=== PATIENT | female | born 1965 | race Caucasian/White ===

== ENCOUNTER 2016-07-06 15:50 | Inpatient (IN) | payer BC, OTHER ==
[2016-07-06 17:30] VITALS: BMI 22.7
--- NOTE | 2016-07-06 17:55 | HP ---
COWS - Scale Resting Pulse: 0= [place] 80 or Below Sweatin= Chills/Flushing Restless Observation: 1= Difficult to Sit Still Pupil Size: 0= Normal to Room Light Bone or Joint Aches: 1= Mild Discomfort Runny Nose/ Eye Tearin= Runny Nose/Eyes GI Upset > 30mins: 3= Vomiting/Diarrhea Tremor Observation: 1= Tremor [place], Not Seen Yawning Observation: 0= None Anxiety or Irritability: 2=Irritable/Anxious Goose Flesh Skin: 3=Piloerection COWS Score: 14 CIWA Score - CIWA Score Nausea/Vomitin Muscle Tremors: 4-Moderate,w/Arms Extend Anxiety: 4-Mod. Anxious/Guarded Agitation: 4-Moderately Restless Paroxysmal Sweats: 1-Minimal Palms Moist Orientation: 0-Oriented Tacttile Disturbances: 0-None Auditory Disturbances: 0-None Visual Disturbances: 0-None Headache: 0-None Present CIWA-Ar Total Score: 15 Admission ROS BHS - HPI Chief Complaint: withdrawal sx Allergies/Adverse Reactions: Allergies Allergy/AdvReac Type Severity Reaction Status Date / Time No Known Allergies Allergy Verified 07/06/16 17:46 History of Present Illness: 51 years old female with long history of alcohol, opiate, cocaine, nicotine dependence, 2012 neck fx, hepatitis c, treated, +PPD, and depression is admitted to detox Exam Limitations: No Limitations - Ebola screening Have you traveled outside of the country in the last 21 days: No Have you had contact with anyone from an Ebola affected area: No Have you been sick,other than usual withdrawal symptoms: No Do you have a fever: No - Review of Systems Constitutional: Chills, Changes in sleep, Weight Stable EENT: reports: No Symptoms Reported Respiratory: reports: No Symptoms reported Cardiac: reports: No Symptoms Reported GI: reports: Diarrhea, Nausea, Poor Fluid Intake, Vomiting, Abdominal cramping : reports: No Symptoms Reported Musculoskeletal: reports: Back Pain, Joint Pain, Muscle Pain, Muscle Weakness ( left side of body), Neck Pain Integumentary: reports: Change in Color (both upper legs and arms) Neuro: reports: Tremors Endocrine: reports: No Symptoms Reported Hematology: reports: No Symptoms Reported Psychiatric: reports: Judgement Intact, Orientated x3, Depressed Other Systems: Reviewed and Negative Patient History - Patient Medical History Hx Anemia: No Hx Asthma: No Hx Chronic Obstructive Pulmonary Disease (COPD): No Hx Cancer: No Hx Cardiac Disorders: No Hx Congestive Heart Failure: No Hx Hypertension: No Hx Hypercholesterolemia: No Hx Pacemaker: No HX Cerebrovascular Accident: No Hx Seizures: No Hx Dementia: No Hx Diabetes: No Hx Gastrointestinal Disorders: No Hx Liver Disease: No Hx Genitourinary Disorders: No Hx Sexually Transmitted Disorders: No Hx Renal Disease (ESRD): No Hx Thyroid Disease: No Hx Human Immunodeficiency Virus (HIV): No Hx Hepatitis C: Yes (treated) Hx Depression: Yes Hx Suicide Attempt: Yes (1993) Hx Bipolar Disorder: No Hx Schizophrenia: No - Patient Surgical History Past Surgical History: Yes Hx Neurologic Surgery: Yes (neck) Hx Cataract Extraction: No Hx Cardiac Surgery: No Hx Lung Surgery: No Hx Breast Surgery: No Hx Breast Biopsy: No Hx Abdominal Surgery: No Hx Appendectomy: No Hx Cholecystectomy: No Hx Genitourinary Surgery: No Hx Section: Yes Hx Orthopedic Surgery: Yes (back) Hx Hysterectomy: No Anesthesia Reaction: No - PPD History Previous Implant?: Yes Documented Results: Positive w/o proof Implanted On Prior R Admission?: No PPD to be Administered?: Yes - Reproductive History Patient is a Female of Child Bearing Age (11 -55 yrs old): Yes Last Menstrual Period: 07/07/07 Patient : No - Smoking Cessation Smoking history: Current every day smoker Have you smoked in the past 12 months: Yes Aproximately how many cigarettes per day: 15 Cigars Per Day: 0 Hx Chewing Tobacco Use: No Initiated information on smoking cessation: Yes 'Breaking Loose' booklet given: 07/06/16 - Substance & Tx. History Hx Alcohol Use: Yes Hx Substance Use: Yes Substance Use Type: Alcohol, Cocaine, Opiates, Tranquilizers Hx Substance Use Treatment: Yes - Substances Abused Heroin Route: Injection Frequency: Daily Amount used: 10 bags Age of first use: 15 Date of Last Use: 07/06/16 Alcohol Route: Oral Frequency: Daily Amount used: 3-6 beers Age of first use: 12 Date of Last Use: 07/06/16 Cocaine Route: Injection Frequency: Daily Amount used: 1 gram Age of first use: 12 Date of Last Use: 07/04/16 Alprazolam (Xanax) Route: Oral Frequency: 1-2 times per week Amount used: 1mg Age of first use: 50 Date of Last Use: 07/06/16 Family Disease History - Family Disease History Family Disease History: Heart Disease: Mother (), Other: Father ( ), Brother (head trauma) Admission Physical Exam [facility] - Vital Signs Vital Signs: Vital Signs - 24 hr 07/06/16 17:25 Temperature 95.8 F L Pulse Rate 69 Respiratory 18 Rate Blood Pressure 121/74 - Physical General Appearance: Yes: Nourished, Appropriately Dressed, Mild Distress, Tremorous, Irritable, Sweating, Anxious HEENTM: Yes: Hearing grossly Normal, Normal ENT Inspection, Normocephalic, Normal Voice Respiratory: Yes: Chest Non-Tender, Lungs Clear, Normal Breath Sounds, No Respiratory Distress, Accessory Muscle Use Neck: Yes: Supple, Trachea in good position Breast: Yes: Breasts Symetrical Cardiology: Yes: Regular Rhythm, Regular Rate, S1, S2 Abdominal: Yes: Non Tender, Soft Genitourinary: Yes: Within Normal Limits Back: Yes: Normal Inspection Musculoskeletal: Yes: Gait Steady (cane), Back pain, Muscle weakness (left side weakness) Extremities: Yes: Non-Tender, Tremors Neurological: Yes: Alert, Normal Response, Depressed Affect Integumentary: Yes: Warm, Track Rinaldi Lymphatic: Yes: Within Normal Limits - Diagnostic (1) Alcohol dependence with uncomplicated withdrawal Current Visit: Yes Status: Acute (2) Opioid dependence with withdrawal Current Visit: Yes Status: Acute (3) Cocaine dependence, uncomplicated Current Visit: Yes Status: Chronic (4) Nicotine dependence Current Visit: Yes Status: Acute Qualifiers: Nicotine product type: cigarettes Substance use status: in withdrawal Qualified Code(s): F17.213 - Nicotine dependence, cigarettes, with withdrawal (5) Hepatitis C antibody test positive Current Visit: Yes Status: Resolved (6) Status post neck surgery, follow-up exam Current Visit: Yes Status: Resolved (7) Positive PPD, treated Current Visit: Yes Status: Resolved (8) Depression (emotion) Current Visit: Yes Status: Suspected Qualifiers: Depression Type: dysthymia Qualified Code(s): F34.1 - Dysthymic disorder (9) Use of cane as ambulatory aid Current Visit: Yes Status: Chronic Cleared for Admission [facility] - Detox or Rehab [facility] Level of Care: Medically Managed Detox Regimen/Protocol: Methadone/Valium BHS Breath Alcohol Content Breath Alcohol Content: 0 Vital Signs - Vital Signs Vital Signs Refused: No Temperature: 95.8 F Temperature Source: Oral Pulse Rate: 69 Respiratory Rate: 18 Blood Pressure: 121/74 BP Location: Left Arm Blood Pressure Position: Sitting - Height Height: 5 ft 7 in - Weight Weight: 145 lb Weight Measurement Method: Standing Scale Body Mass Index (BMI): 22.7 - Bowel Function Bowel Movement: Yes Urine Pregancy Test - Result Urine Test Results: Negative- NO Line Present Urine Drug Screen - Control Is Test Valid: Yes - Results Drug Screen Negative: No Urine Drug Screen Results: EKATERINA-Cocaine, OPI-Opiates, BZO-Benzodiazepines, OXY- Oxycodone
[2016-07-06] MEDS ORDERED: ACETAMINOPHEN 325 MG TABLET (FP) PO PRN (18:24)
[2016-07-06] MEDS ORDERED: MAGNESIUM CITRATE 300 ML BOTTLE PO PRN (18:24)
[2016-07-06] MEDS ORDERED: MAGNESIUM HYDROX 2400MG/30ML ORAL SUSPENSION 30 ML CUP PO PRN (18:24)
[2016-07-06] MEDS ORDERED: NICOTINE POLACRILEX 4 MG GUM BC PRN (18:24)
[2016-07-06] MEDS ORDERED: P-EPHED 60MG/TRIPROLIDI 2.5MG TABLET PO PRN (18:24)
[2016-07-06] MEDS ORDERED: diphenhydrAMINE HCL 50 MG CAPSULE PO PRN (18:24)
[2016-07-06] MEDS ORDERED: LOPERAMIDE HCL 2 MG CAPSULE PO PRN (18:24)
[2016-07-06] MEDS ORDERED: diazePAM 5 MG TABLET PO ONE (19:00)
[2016-07-06] MEDS ORDERED: METHADONE HCL 10 MG TABLET (FOR DETOX USE ONLY) PO ONE ×2 (19:00→23:00)
[2016-07-06] MEDS: diazePAM 5 MG TABLET PO SCH (22:34)
[2016-07-06] MEDS: GABAPENTIN 300 MG CAPSULE (FP) PO SCH (22:34)
[2016-07-06] MEDS: THIAMINE HCL 100 MG TABLET (FP) PO SCH (22:34)
[2016-07-06 23:32] LABS: URINE APPEARANCE CLOUDY; URINE BILIRUBIN NEGATIVE (NEGATIVE); URINE BLOOD NEGATIVE (NEGATIVE); URINE COLOR YELLOW; URINE GLUCOSE (UA) NEGATIVE (NEGATIVE); URINE KETONE NEGATIVE (NEGATIVE); URINE NITRITE NEGATIVE (NEGATIVE); URINE PROTEIN NEGATIVE (NEGATIVE); URINE UROBILINOGEN NEGATIVE E.U./dl (0.2-1.0)
[2016-07-06 23:37] LABS: URINE LEUK ESTERASE 2+ (NEGATIVE)
[2016-07-06 23:40] LABS: URINE BACTERIA RARE /hpf (NONE SEEN); URINE MUCUS RARE; URINE RBC <1 /hpf (0-3); URINE WBC 13 /hpf (3-5)
[2016-07-07] MEDS: GABAPENTIN 300 MG CAPSULE (FP) PO SCH ×2 (05:21→21:47)
[2016-07-07] MEDS: diazePAM 5 MG TABLET PO SCH ×3 (05:21→21:47)
--- NOTE | 2016-07-07 08:41 | CONSULT ---
[facility] Psychiatric Consult - Data Date of interview: 07/07/16 Admission source: [facility] Identifying data: This is 51 years old female with history of no psychgiatric hospitalizations, intoxicated with: Alcohol, Opioids, Cociane, Xanax and Nicotine Substance Abuse History: Smoking history: Current every day smoker. Have you smoked in the past 12 months: Yes. Aproximately how many cigarettes per day: 15. Cigars Per Day: 0. Hx Chewing Tobacco Use: No. Initiated information on smoking cessation: Yes. 'Breaking Loose' booklet given: 07/06/16. - Substance & Tx. History. Hx Alcohol Use: Yes. Hx Substance Use: Yes. Substance Use Type : Alcohol, Cocaine, Opiates, Tranquilizers. Hx Substance Use Treatment: Yes. - Substances Abused. Heroin. Route: Injection. Frequency: Daily. Amount used: 10 bags. Age of first use: 15. Date of Last Use: 07/06/16. Alcohol. Route: Oral. Frequency: Daily. Amount used: 3-6 beers. Age of first use: 12. Date of Last Use: 07/06/16. Cocaine. Route: Injection. Frequency: Daily. Amount used: 1 gram. Age of first use: 12. Date of Last Use: . Alprazolam (Xanax). Route: Oral. Frequency: 1-2 times per week. Amount used: 1mg. Age of first use: 50. Date of Last Use: 07/06/16 Medical History: Hep C+, PPD+ Hisotyr, AMBULATED WITH CANE Psychiatric History: Ptent reports history of depression, reports taking prior to admission: Wellbutri XL 300mg poqd. Gabapentin 900mg po qhs Physical/Sexual Abuse/Trauma History: Denies Additional Comment: Wellbutri XL 300mg poqd. Gabapentin 900mg po qhs Mental Status Exam - Mental Status Exam Alert and Oriented to: Person Cognitive Function: Fair Patient Appearance: Unkempt Mood: Apprehensive Patient Behavior: Cooperative Speech Pattern: Appropriate Voice Loudness: Mildly Loud Thought Process: Goal Oriented Thought Disorder: Being Controlled Hallucinations: Denies Suicidal Ideation: Denies Homicidal Ideation: Denies Insight/Judgement: Fair Sleep: Difficulty falling asleep Appetite: Fair Muscle strength/Tone: Mild Hypotonicity Gait/Station: Shuffling Additional Comments: Wellbutri XL 300mg poqd. Gabapentin 900mg po qhs Psychiatric Findings - Problem List ([place] 1, 2,3) (1) Alcohol dependence with uncomplicated withdrawal Current Visit: Yes Status: Acute (2) Nicotine dependence Current Visit: Yes Status: Acute Qualifiers: Nicotine product type: cigarettes Substance use status: in withdrawal Qualified Code(s): F17.213 - Nicotine dependence, cigarettes, with withdrawal (3) Opioid dependence with withdrawal Current Visit: Yes Status: Acute (4) Cocaine dependence, uncomplicated Current Visit: Yes Status: Chronic (5) Use of cane as ambulatory aid Current Visit: Yes Status: Chronic (6) Depression (emotion) Current Visit: Yes Status: Suspected Qualifiers: Depression Type: dysthymia Qualified Code(s): F34.1 - Dysthymic disorder (7) Drug-induced mood disorder Current Visit: Yes Status: Acute - Initial Treatment Plan Initial Treatment Plan: Wellbutri XL 300mg poqd. Gabapentin 900mg po qhs
--- NOTE | 2016-07-07 09:51 | PN ---
S CIWA - CIWA Score Nausea/Vomitin Muscle Tremors: 3 Anxiety: 3 Agitation: 2 Paroxysmal Sweats: 1-Minimal Palms Moist Orientation: 0-Oriented Tacttile Disturbances: 1-Very Mild Itch/Numbness Auditory Disturbances: 1-Very Mild Visual Disturbances: 1-Very Mild Sensitivity Headache: 2-Mild CIWA-Ar Total Score: 17 BHS COWS - Scale Resting Pulse: 0= [place] 80 or Below Sweatin= Chills/Flushing Restless Observation: 3= Extraneous Movement Pupil Size: 1= Pupils >than Normal Bone or Joint Aches: 2= Severe Diffuse Aches Runny Nose/ Eye Tearin= Runny Nose/Eyes GI Upset > 30mins: 2= Nausea/Diarrhea Tremor Observation of Outstretched Hands: 2= Slight Tremor Visible Yawning Observation: 1= 1-2x During Session Anxiety or Irritability: 2=Irritable/Anxious Goose Flesh Skin: 0=Smooth Skin COWS Score: 16 S Progress Note (SOAP) Subjective: alert,irritable,anxious,interrupted sleep,pain in the body and back,tremor Objective: 07/07/16 09:49 Vital Signs Temperature 97.7 F 07/07/16 05:49 Pulse Rate 61 07/07/16 05:49 Respiratory Rate 18 07/07/16 05:49 Blood Pressure 98/63 07/07/16 05:49 O2 Sat by Pulse Oximetry (%) Laboratory Last Values Urine Color Yellow 07/06/16 22:03 Urine Appearance Cloudy 07/06/16 22:03 Urine pH 5.0 (5.0-8.0) 07/06/16 22:03 Ur Specific [place] 1.016 (1.001-1.035) 07/06/16 22:03 Urine Protein Negative (NEGATIVE) 07/06/16 22:03 Urine Glucose (UA) Negative (NEGATIVE) 07/06/16 22:03 Urine Ketones Negative (NEGATIVE) 07/06/16 22:03 Urine Blood Negative (NEGATIVE) 07/06/16 22:03 Urine Nitrite Negative (NEGATIVE) 07/06/16 22:03 Urine Bilirubin Negative (NEGATIVE) 07/06/16 22:03 Urine Urobilinogen Negative E.U./dl (0.2-1.0) 07/06/16 22:03 Ur Leukocyte Esterase 2+ (NEGATIVE) H 07/06/16 22:03 Urine RBC <1 /hpf (0-3) 07/06/16 22:03 Urine WBC 13 /hpf (3-5) 07/06/16 22:03 Ur Epithelial Cells Many /hpf (FEW) 07/06/16 22:03 Urine Bacteria Rare /hpf (NONE SEEN) 07/06/16 22:03 Urine Mucus Rare 07/06/16 22:03 ekg nsr,normal ecg labs pending Assessment: 07/07/16 09:51 withdrawal symptom Plan: continue detox
[2016-07-07] MEDS ORDERED: METHADONE HCL 10 MG TABLET (FOR DETOX USE ONLY) PO SCH (10:00)
[2016-07-07 10:50] LABS: MCH 30.1 pg (25.7-33.7); MCHC 33.7 g/dl (32.0-36.0); MEAN CELL VOLUME 89.3 fl (80-96); MEAN PLT VOLUME 7.9 fl (7.5-11.1); PLATELET COUNT 176 K/MM3 (134-434); WHITE BLOOD COUNT 6.8 K/mm3 (4.0-10.0)
[2016-07-07] MEDS: diazePAM 5 MG TABLET PO PRN ×2 (10:56→18:01)
[2016-07-07] MEDS: PRENATAL VITAMINS W/ FOLIC ACID TABLET (FP) PO SCH (10:56)
[2016-07-07] MEDS: valACYclovir HCL 500 MG TABLET (FP) PO SCH (10:58)
[2016-07-07] MEDS: NICOTINE 21 MG/24 HOURS TOPICAL PATCH TD SCH (10:58)
[2016-07-07 11:00] LABS: ALBUMIN 3.3 g/dl (3.4-5.0); ALK PHOS 90 U/L (45-117); ANION GAP 7 (8-16); BILIRUBIN,TOTAL 0.3 mg/dL (0.2-1.0); CALCIUM 8.4 mg/dL (8.5-10.1); CO2 29 mmol/L (21-32); COCKROFT - GAULT 97.6055; CREATININE 0.7 mg/dL (0.55-1.02); GLUCOSE,RANDOM 84 mg/dL (74-106); SGOT/AST 14 U/L (15-37); SGPT/ALT 42 U/L (12-78)
[2016-07-07] MEDS: MAG HYDROX/AL HYDROX/SIMETH 30 ML UNIT-DOSE CUP PO PRN (12:18)
[2016-07-07] MEDS: SENNOSIDES 8.6MG TABLET (FP) PO SCH (12:18)
[2016-07-07] MEDS: IBUPROFEN 400 MG TABLET (FP) PO PRN ×2 (12:20→21:41)
--- NOTE | 2016-07-07 14:30 | EKG ---
Test Reason : Blood Pressure : / mmHG Vent. Rate : 061 BPM Atrial Rate : 061 BPM P-R Int : 166 ms QRS Dur : 094 ms QT Int : 446 ms P-R-T Axes : 004 015 027 degrees QTc Int : 448 ms NORMAL SINUS RHYTHM NORMAL ECG NO PREVIOUS ECGS AVAILABLE Confirmed by CHIP MAURICIO, BELEM ([id number]) on 07/07/2016 2:30:23 PM Referred By: Confirmed By:BELEM SAUNDERS MD
--- NOTE | 2016-07-07 16:17 | PN ---
S Progress Note Note: called by nurse to evaluate patient with history of a fall while watching tv see incident report no head injury no injury noted history of chronic back pain s/p back injury and back surgery bp 103/67,p65,r20,t98.1 impression history of fall chronic low back pain s/p surgery treatment initiate fall protocol 2 close monitoring fall precaution continue detox
[2016-07-07 17:07] LABS: URINE APPEARANCE CLEAR; URINE BILIRUBIN NEGATIVE (NEGATIVE); URINE BLOOD NEGATIVE (NEGATIVE); URINE COLOR YELLOW; URINE GLUCOSE (UA) NEGATIVE (NEGATIVE); URINE KETONE NEGATIVE (NEGATIVE); URINE LEUK ESTERASE TRACE (NEGATIVE); URINE NITRITE NEGATIVE (NEGATIVE); URINE PROTEIN NEGATIVE (NEGATIVE); URINE UROBILINOGEN NEGATIVE E.U./dl (0.2-1.0)
[2016-07-07 17:15] LABS: URINE MUCUS RARE; URINE WBC 4 /hpf (3-5)
[2016-07-07] MEDS: THIAMINE HCL 100 MG TABLET (FP) PO SCH (21:51)
--- NOTE | 2016-07-08 09:29 | PN ---
[facility] CIWA - CIWA Score Nausea/Vomitin Muscle Tremors: 3 Anxiety: 3 Agitation: 2 Paroxysmal Sweats: 1-Minimal Palms Moist Orientation: 0-Oriented Tacttile Disturbances: 1-Very Mild Itch/Numbness Auditory Disturbances: 1-Very Mild Visual Disturbances: 1-Very Mild Sensitivity Headache: 2-Mild CIWA-Ar Total Score: 17 BHS COWS - Scale Resting Pulse: 0= [place] 80 or Below Sweatin= Chills/Flushing Restless Observation: 3= Extraneous Movement Pupil Size: 1= Pupils >than Normal Bone or Joint Aches: 2= Severe Diffuse Aches Runny Nose/ Eye Tearin= Runny Nose/Eyes GI Upset > 30mins: 2= Nausea/Diarrhea Tremor Observation of Outstretched Hands: 2= Slight Tremor Visible Yawning Observation: 1= 1-2x During Session Anxiety or Irritability: 2=Irritable/Anxious Goose Flesh Skin: 0=Smooth Skin COWS Score: 16 S Progress Note (SOAP) Subjective: ALERT,IRRITABLE,ANXIOUS,INTERRUPTED SLEEP,PAIN IN THE BODY,TREMOR Objective: 07/08/16 09:31 Vital Signs Temperature 97.5 F L 07/08/16 07:30 Pulse Rate 58 L 07/08/16 07:30 Respiratory Rate 16 07/08/16 07:30 Blood Pressure 91/58 07/08/16 07:30 O2 Sat by Pulse Oximetry (%) Laboratory Last Values WBC 6.8 K/mm3 (4.0-10.0) 07/07/16 07:00 RBC 3.70 M/mm3 (3.60-5.2) 07/07/16 07:00 Hgb 11.1 GM/dL (10.7-15.3) 07/07/16 07:00 Hct 33.0 % (32.4-45.2) 07/07/16 07:00 MCV 89.3 fl (80-96) 07/07/16 07:00 MCHC 33.7 g/dl (32.0-36.0) 07/07/16 07:00 RDW 14.0 % (11.6-15.6) 07/07/16 07:00 Plt Count 176 K/MM3 (134-434) 07/07/16 07:00 MPV 7.9 fl (7.5-11.1) 07/07/16 07:00 Sodium 141 mmol/L (136-145) 07/07/16 07:00 Potassium 4.1 mmol/L (3.5-5.1) 07/07/16 07:00 Chloride 105 mmol/L (98-107) 07/07/16 07:00 Carbon Dioxide 29 mmol/L (21-32) 07/07/16 07:00 Anion Gap 7 (8-16) L 07/07/16 07:00 BUN 19 mg/dL (7-18) H 07/07/16 07:00 Creatinine 0.7 mg/dL (0.55-1.02) 07/07/16 07:00 Creat Clearance w eGFR > 60 (>60) 07/07/16 07:00 Random Glucose 84 mg/dL (74-106) 07/07/16 07:00 Calcium 8.4 mg/dL (8.5-10.1) L 07/07/16 07:00 Total Bilirubin 0.3 mg/dL (0.2-1.0) 07/07/16 07:00 AST 14 U/L (15-37) L 07/07/16 07:00 ALT 42 U/L (12-78) 07/07/16 07:00 Alkaline Phosphatase 90 U/L (45-117) 07/07/16 07:00 Total Protein 6.0 g/dl (6.4-8.2) L 07/07/16 07:00 Albumin 3.3 g/dl (3.4-5.0) L 07/07/16 07:00 Urine Color Yellow 07/07/16 13:00 Urine Appearance Clear 07/07/16 13:00 Urine pH 5.0 (5.0-8.0) 07/07/16 13:00 Ur Specific [place] 1.014 (1.001-1.035) 07/07/16 13:00 Urine Protein Negative (NEGATIVE) 07/07/16 13:00 Urine Glucose (UA) Negative (NEGATIVE) 07/07/16 13:00 Urine Ketones Negative (NEGATIVE) 07/07/16 13:00 Urine Blood Negative (NEGATIVE) 07/07/16 13:00 Urine Nitrite Negative (NEGATIVE) 07/07/16 13:00 Urine Bilirubin Negative (NEGATIVE) 07/07/16 13:00 Urine Urobilinogen Negative E.U./dl (0.2-1.0) 07/07/16 13:00 Ur Leukocyte Esterase Trace (NEGATIVE) H D 07/07/16 13:00 Urine RBC None /hpf (0-3) 07/07/16 13:00 Urine WBC 4 /hpf (3-5) 07/07/16 13:00 Ur Epithelial Cells Rare /hpf (FEW) 07/07/16 13:00 Urine Bacteria Rare /hpf (NONE SEEN) 07/06/16 22:03 Urine Mucus Rare 07/07/16 13:00 RPR Titer Reactive 1:1 (NONREACTIVE) H 07/07/16 07:00 T.pallidum Ab (MHA) Reactive (NONREACTIVE) 07/07/16 07:00 PATIENT WAS TREATED FOR SYPHILIS IN THE PAST Assessment: 07/08/16 09:34 CHEST X RAY NOTED ,NODULARITY OF RIGHT UPPER LOBE ON 07/07/16 07/08/16 09:36 CT OF CHEST NON CONTRAST SCHEDLE AT [facility] TODAY,DISCUSSED WITH THE PATIENT Plan: CONTINUE DETOX
[2016-07-08] MEDS: diazePAM 5 MG TABLET PO SCH ×2 (10:10→22:24)
[2016-07-08] MEDS: valACYclovir HCL 500 MG TABLET (FP) PO SCH (10:10)
[2016-07-08] MEDS: PRENATAL VITAMINS W/ FOLIC ACID TABLET (FP) PO SCH (10:10)
[2016-07-08] MEDS: SENNOSIDES 8.6MG TABLET (FP) PO SCH (10:11)
[2016-07-08] MEDS: NICOTINE 21 MG/24 HOURS TOPICAL PATCH TD SCH (10:11)
[2016-07-08] MEDS: METHADONE HCL 5 MG TABLET (FOR DETOX USE ONLY) PO SCH (10:11)
--- NOTE | 2016-07-08 12:34 | EKG ---
Test Reason : Blood Pressure : / mmHG Vent. Rate : 058 BPM Atrial Rate : 058 BPM P-R Int : 164 ms QRS Dur : 086 ms QT Int : 438 ms P-R-T Axes : 009 028 031 degrees QTc Int : 429 ms SINUS BRADYCARDIA OTHERWISE NORMAL ECG WHEN COMPARED WITH ECG OF 06-JUL-2016 18:55, NO SIGNIFICANT CHANGE WAS FOUND Confirmed by JONY SANCHEZ MD ([id number]) on 07/08/2016 12:33:56 PM Referred By: Confirmed By:JONY SANCHEZ MD
[2016-07-08] MEDS: IBUPROFEN 400 MG TABLET (FP) PO PRN (13:37)
[2016-07-08] MEDS: MAG HYDROX/AL HYDROX/SIMETH 30 ML UNIT-DOSE CUP PO PRN (13:40)
[2016-07-08] MEDS: diazePAM 5 MG TABLET PO PRN (18:18)
[2016-07-08] MEDS: THIAMINE HCL 100 MG TABLET (FP) PO SCH (22:24)
[2016-07-08] MEDS: GABAPENTIN 300 MG CAPSULE (FP) PO SCH (22:24)
[2016-07-09] MEDS: MENTHOL/PHENOL 1 EACH UD MM PRN ×3 (04:48→18:39)
[2016-07-09] MEDS: guaiFENesin/D-METHORPHAN HB 10 ML UNIT-DOSE CUPS PO PRN ×3 (04:48→22:29)
--- NOTE | 2016-07-09 09:38 | PN ---
S Progress Note (SOAP) Subjective: ALERT,IRRITABLE,ANXIOUS,INTERRUPTED SLEEP,PAIN IN THE BODY,BACK,LEG Objective: 07/09/16 09:37 Vital Signs Temperature 96.9 F L 07/09/16 06:03 Pulse Rate 71 07/09/16 06:03 Respiratory Rate 18 07/09/16 06:03 Blood Pressure 110/66 07/09/16 06:03 O2 Sat by Pulse Oximetry (%) 07/09/16 09:38 Assessment: 07/09/16 09:38 CT OF CHEST ON 07/08/16 NOTED Plan: CONTINUE DETOX
[2016-07-09] MEDS: PRENATAL VITAMINS W/ FOLIC ACID TABLET (FP) PO SCH (10:33)
[2016-07-09] MEDS: diazePAM 5 MG TABLET PO SCH ×2 (10:33→22:28)
[2016-07-09] MEDS: SENNOSIDES 8.6MG TABLET (FP) PO SCH (10:34)
[2016-07-09] MEDS: METHADONE HCL 5 MG TABLET (FOR DETOX USE ONLY) PO SCH (10:34)
[2016-07-09] MEDS: valACYclovir HCL 500 MG TABLET (FP) PO SCH (10:34)
[2016-07-09] MEDS: NICOTINE 21 MG/24 HOURS TOPICAL PATCH TD SCH (10:35)
[2016-07-09] MEDS: THIAMINE HCL 100 MG TABLET (FP) PO SCH (22:28)
[2016-07-09] MEDS: GABAPENTIN 300 MG CAPSULE (FP) PO SCH (22:28)
[2016-07-10] MEDS ORDERED: diazePAM 5 MG TABLET PO SCH (10:00)
[2016-07-10] MEDS ORDERED: METHADONE HCL 10 MG TABLET (FOR DETOX USE ONLY) PO SCH (10:00)
[2016-07-10] MEDS: SENNOSIDES 8.6MG TABLET (FP) PO SCH (11:00)
[2016-07-10] MEDS: valACYclovir HCL 500 MG TABLET (FP) PO SCH (11:00)
[2016-07-10] MEDS: NICOTINE 21 MG/24 HOURS TOPICAL PATCH TD SCH (11:01)
[2016-07-10] MEDS: PRENATAL VITAMINS W/ FOLIC ACID TABLET (FP) PO SCH (11:01)
[2016-07-10] MEDS: guaiFENesin/D-METHORPHAN HB 10 ML UNIT-DOSE CUPS PO PRN ×2 (11:04→22:27)
[2016-07-10] MEDS: IBUPROFEN 400 MG TABLET (FP) PO PRN (12:48)
--- NOTE | 2016-07-10 16:30 | PN ---
S Progress Note (SOAP) Subjective: Fatigue, Tremors, Body Aches. Objective: PT. A & O X 3, OBSERVED AMBULATING ON UNIT. 07/10/16 16:28 Vital Signs Temperature 98.2 F 07/10/16 14:21 Pulse Rate 77 07/10/16 14:21 Respiratory Rate 16 07/10/16 14:21 Blood Pressure 94/62 07/10/16 14:21 O2 Sat by Pulse Oximetry (%) Laboratory Last Values WBC 6.8 K/mm3 (4.0-10.0) 07/07/16 07:00 RBC 3.70 M/mm3 (3.60-5.2) 07/07/16 07:00 Hgb 11.1 GM/dL (10.7-15.3) 07/07/16 07:00 Hct 33.0 % (32.4-45.2) 07/07/16 07:00 MCV 89.3 fl (80-96) 07/07/16 07:00 MCHC 33.7 g/dl (32.0-36.0) 07/07/16 07:00 RDW 14.0 % (11.6-15.6) 07/07/16 07:00 Plt Count 176 K/MM3 (134-434) 07/07/16 07:00 MPV 7.9 fl (7.5-11.1) 07/07/16 07:00 Sodium 141 mmol/L (136-145) 07/07/16 07:00 Potassium 4.1 mmol/L (3.5-5.1) 07/07/16 07:00 Chloride 105 mmol/L (98-107) 07/07/16 07:00 Carbon Dioxide 29 mmol/L (21-32) 07/07/16 07:00 Anion Gap 7 (8-16) L 07/07/16 07:00 BUN 19 mg/dL (7-18) H 07/07/16 07:00 Creatinine 0.7 mg/dL (0.55-1.02) 07/07/16 07:00 Creat Clearance w eGFR > 60 (>60) 07/07/16 07:00 Random Glucose 84 mg/dL (74-106) 07/07/16 07:00 Calcium 8.4 mg/dL (8.5-10.1) L 07/07/16 07:00 Total Bilirubin 0.3 mg/dL (0.2-1.0) 07/07/16 07:00 AST 14 U/L (15-37) L 07/07/16 07:00 ALT 42 U/L (12-78) 07/07/16 07:00 Alkaline Phosphatase 90 U/L (45-117) 07/07/16 07:00 Total Protein 6.0 g/dl (6.4-8.2) L 07/07/16 07:00 Albumin 3.3 g/dl (3.4-5.0) L 07/07/16 07:00 Urine Color Yellow 07/07/16 13:00 Urine Appearance Clear 07/07/16 13:00 Urine pH 5.0 (5.0-8.0) 07/07/16 13:00 Ur Specific [place] 1.014 (1.001-1.035) 07/07/16 13:00 Urine Protein Negative (NEGATIVE) 07/07/16 13:00 Urine Glucose (UA) Negative (NEGATIVE) 07/07/16 13:00 Urine Ketones Negative (NEGATIVE) 07/07/16 13:00 Urine Blood Negative (NEGATIVE) 07/07/16 13:00 Urine Nitrite Negative (NEGATIVE) 07/07/16 13:00 Urine Bilirubin Negative (NEGATIVE) 07/07/16 13:00 Urine Urobilinogen Negative E.U./dl (0.2-1.0) 07/07/16 13:00 Ur Leukocyte Esterase Trace (NEGATIVE) H D 07/07/16 13:00 Urine RBC None /hpf (0-3) 07/07/16 13:00 Urine WBC 4 /hpf (3-5) 07/07/16 13:00 Ur Epithelial Cells Rare /hpf (FEW) 07/07/16 13:00 Urine Bacteria Rare /hpf (NONE SEEN) 07/06/16 22:03 Urine Mucus Rare 07/07/16 13:00 RPR Titer Reactive 1:1 (NONREACTIVE) H 07/07/16 07:00 T.pallidum Ab (MHA) Reactive (NONREACTIVE) 07/07/16 07:00 LABS NOTED. PATIENT REPORTS THAT SHE COMPLETED FULL COURSE OF TREATMENT FOR SYPHILIS @ 1998. 07/10/16 18:13 Assessment: 07/10/16 16:29 WITHDRAWAL SYMPTOMS. Plan: CONTINUE DETOX. ADVISED PATIENT TO FOLLOW-UP WITH DOCTOR PODIATRIC MEDICINE / REHAB MEDICAL PROVIDER AFTER DISCHARGE FROM DETOX FOR GENERAL MEDICAL ASSESSMENT AND FOR ABNORMAL ADMISSION LAB VALUES.
[2016-07-10] MEDS: GABAPENTIN 300 MG CAPSULE (FP) PO SCH (22:26)
[2016-07-10] MEDS: THIAMINE HCL 100 MG TABLET (FP) PO SCH (22:26)
[2016-07-11] MEDS: guaiFENesin/D-METHORPHAN HB 10 ML UNIT-DOSE CUPS PO PRN (05:52)
[2016-07-11] MEDS ORDERED: METHADONE HCL 5 MG TABLET (FOR DETOX USE ONLY) PO SCH (06:00)
[2016-07-11 09:54] VITALS: BP 111/67; PULSE 80; TEMP 98.2
--- NOTE | 2016-07-11 13:03 | DS ---
[facility] Detox Discharge Summary Admission Date: 07/06/16 Discharge Date: 07/11/16 - History Present History: Alcohol Dependence, Opioid Dependence Pertinent Past History: Hep C S/P neck surgery - Physical Exam Results Vital Signs: Vital Signs Temperature 98.2 F 07/11/16 09:53 Pulse Rate 80 07/11/16 09:53 Respiratory Rate 18 07/11/16 09:53 Blood Pressure 111/67 07/11/16 09:53 O2 Sat by Pulse Oximetry (%) Pertinent Admission Physical Exam Findings: Laboratory Last Values WBC 6.8 K/mm3 (4.0-10.0) 07/07/16 07:00 RBC 3.70 M/mm3 (3.60-5.2) 07/07/16 07:00 Hgb 11.1 GM/dL (10.7-15.3) 07/07/16 07:00 Hct 33.0 % (32.4-45.2) 07/07/16 07:00 MCV 89.3 fl (80-96) 07/07/16 07:00 MCHC 33.7 g/dl (32.0-36.0) 07/07/16 07:00 RDW 14.0 % (11.6-15.6) 07/07/16 07:00 Plt Count 176 K/MM3 (134-434) 07/07/16 07:00 MPV 7.9 fl (7.5-11.1) 07/07/16 07:00 Sodium 141 mmol/L (136-145) 07/07/16 07:00 Potassium 4.1 mmol/L (3.5-5.1) 07/07/16 07:00 Chloride 105 mmol/L (98-107) 07/07/16 07:00 Carbon Dioxide 29 mmol/L (21-32) 07/07/16 07:00 Anion Gap 7 (8-16) L 07/07/16 07:00 BUN 19 mg/dL (7-18) H 07/07/16 07:00 Creatinine 0.7 mg/dL (0.55-1.02) 07/07/16 07:00 Creat Clearance w eGFR > 60 (>60) 07/07/16 07:00 Random Glucose 84 mg/dL (74-106) 07/07/16 07:00 Calcium 8.4 mg/dL (8.5-10.1) L 07/07/16 07:00 Total Bilirubin 0.3 mg/dL (0.2-1.0) 07/07/16 07:00 AST 14 U/L (15-37) L 07/07/16 07:00 ALT 42 U/L (12-78) 07/07/16 07:00 Alkaline Phosphatase 90 U/L (45-117) 07/07/16 07:00 Total Protein 6.0 g/dl (6.4-8.2) L 07/07/16 07:00 Albumin 3.3 g/dl (3.4-5.0) L 07/07/16 07:00 Urine Color Yellow 07/07/16 13:00 Urine Appearance Clear 07/07/16 13:00 Urine pH 5.0 (5.0-8.0) 07/07/16 13:00 Ur Specific [place] 1.014 (1.001-1.035) 07/07/16 13:00 Urine Protein Negative (NEGATIVE) 07/07/16 13:00 Urine Glucose (UA) Negative (NEGATIVE) 07/07/16 13:00 Urine Ketones Negative (NEGATIVE) 07/07/16 13:00 Urine Blood Negative (NEGATIVE) 07/07/16 13:00 Urine Nitrite Negative (NEGATIVE) 07/07/16 13:00 Urine Bilirubin Negative (NEGATIVE) 07/07/16 13:00 Urine Urobilinogen Negative E.U./dl (0.2-1.0) 07/07/16 13:00 Ur Leukocyte Esterase Trace (NEGATIVE) H D 07/07/16 13:00 Urine RBC None /hpf (0-3) 07/07/16 13:00 Urine WBC 4 /hpf (3-5) 07/07/16 13:00 Ur Epithelial Cells Rare /hpf (FEW) 07/07/16 13:00 Urine Bacteria Rare /hpf (NONE SEEN) 07/06/16 22:03 Urine Mucus Rare 07/07/16 13:00 RPR Titer Reactive 1:1 (NONREACTIVE) H 07/07/16 07:00 T.pallidum Ab (MHA) Reactive (NONREACTIVE) 07/07/16 07:00 labs noted - Treatment Hospital Course: Detox Protocol Followed, Detoxed Safely, Responded well, Discharged Condition Good, Rehab Referral Accepted Patient has Accepted a Rehab Referral to: 12 step meetings - Medication Discharge Medications: Ambulatory Orders Bupropion HCl [Wellbutrin Xl -] 300 mg PO DAILY 07/06/16 Gabapentin [Neurontin -] 300 mg PO Q8H 07/06/16 Valacyclovir HCl [Valtrex -] 500 mg PO DAILY 07/06/16 Bupropion HCl [Wellbutrin Xl -] 300 mg PO DAILY #30 tab 07/07/16 Gabapentin [Neurontin -] 300 mg PO TID #90 cap MDD 900 07/07/16 - Diagnosis (1) Alcohol dependence with uncomplicated withdrawal Status: Acute (2) Drug-induced mood disorder Status: Acute (3) Nicotine dependence Status: Acute Qualifiers: Nicotine product type: cigarettes Substance use status: in withdrawal Qualified Code(s): F17.213 - Nicotine dependence, cigarettes, with withdrawal (4) Opioid dependence with withdrawal Status: Acute (5) Cocaine dependence, uncomplicated Status: Acute - AMA Did Patient Leave Against Medical Advice: No
== END 2016-07-11 08:57 | disposition home or self-care (01) | DRG 897 ==
LOC: YASAS 15:50 → Y6N 18:37
PROVIDERS: ADMIT Internal Medicine Addiction Medicine; ATTEND Internal Medicine Addiction Medicine
PROC: HZ2ZZZZ Detoxification Services for Substance Abuse Treatment (ICD-10-PCS; principal; 2016-07-06)
DX: F11.23 Opioid dependence with withdrawal (principal); F14.20 Cocaine dependence, uncomplicated; F10.230 Alcohol dependence with withdrawal, uncomplicated; F17.213 Nicotine dependence, cigarettes, with withdrawal; F19.24 Other psychoactive substance dependence with psychoactive substance-induced mood disorder; F34.1 Dysthymic disorder; R26.2 Difficulty in walking, not elsewhere classified; R91.1 Solitary pulmonary nodule; B18.2 Chronic viral hepatitis C; R76.11 Nonspecific reaction to tuberculin skin test without active tuberculosis; Z87.42 Personal history of other diseases of the female genital tract; Z91.5 Personal history of self-harm; M54.9 Dorsalgia, unspecified; G89.29 Other chronic pain; W18.30XA Fall on same level, unspecified, initial encounter; Z91.81 History of falling; Y93.89 Activity, other specified; Y92.238 Other place in hospital as the place of occurrence of the external cause
CPT/HCPCS: 36415; 71020-TC; 71250-TC; 80053; 81003; 81015; 85027; 86593; 86780; 93005; 93010

== ENCOUNTER 2016-08-06 11:07 | Inpatient (IN) | payer BC, OTHER ==
[2016-08-06 15:04] VITALS: BMI 21.6
--- NOTE | 2016-08-06 16:59 | HP ---
COWS - Scale Resting Pulse: 1= RI 81-100 Sweatin=Flushed/Facial Moisture Restless Observation: 1= Difficult to Sit Still Pupil Size: 0= Normal to Room Light Bone or Joint Aches: 2= Severe Diffuse Aches Runny Nose/ Eye Tearin= Runny Nose/Eyes GI Upset > 30mins: 2= Nausea/Diarrhea Tremor Observation: 2= Slight Tremor Visible Yawning Observation: 2= >3x During Session Anxiety or Irritability: 2=Irritable/Anxious Goose Flesh Skin: 3=Piloerection COWS Score: 19 CIWA Score - CIWA Score Nausea/Vomitin-Mild Nausea/No Vomiting Muscle Tremors: 4-Moderate,w/Arms Extend Anxiety: 3 Agitation: 4-Moderately Restless Paroxysmal Sweats: 3 Orientation: 0-Oriented Tacttile Disturbances: 0-None Auditory Disturbances: 0-None Visual Disturbances: 0-None Headache: 0-None Present CIWA-Ar Total Score: 15 Admission ROS S - HPI Chief Complaint: I need to stop using and go to rehab. Allergies/Adverse Reactions: Allergies Allergy/AdvReac Type Severity Reaction Status Date / Time No Known Allergies Allergy Verified 08/06/16 15:47 History of Present Illness: pt is a 51yr old female with a history of heroin alcohol and cocaine dependence seeking detox for treatment. Exam Limitations: No Limitations - Ebola screening Have you traveled outside of the country in the last 21 days: No Have you had contact with anyone from an Ebola affected area: No Have you been sick,other than usual withdrawal symptoms: No Do you have a fever: No - Review of Systems Constitutional: Chills, Diaphoresis, Loss of Appetite, Night Sweats EENT: reports: No Symptoms Reported, Tearing, Nose Congestion Respiratory: reports: No Symptoms reported Cardiac: reports: No Symptoms Reported GI: reports: Constipated, Nausea, Poor Appetite, Poor Fluid Intake, Indigestion : reports: No Symptoms Reported Musculoskeletal: reports: Back Pain, Joint Pain, Muscle Pain Integumentary: reports: Flushing, Sweating Neuro: reports: Tingling, Tremors Endocrine: reports: Excessive Sweating, Flushing Hematology: reports: No Symptoms Reported Psychiatric: reports: Judgement Intact, Mood/Affect Appropiate, Orientated x3, Agitated, Anxious Other Systems: Reviewed and Negative Patient History - Patient Medical History Hx Anemia: No Hx Asthma: No Hx Chronic Obstructive Pulmonary Disease (COPD): No Hx Cancer: No Hx Cardiac Disorders: No Hx Congestive Heart Failure: No Hx Hypertension: No Hx Hypercholesterolemia: No Hx Pacemaker: No HX Cerebrovascular Accident: No Hx Seizures: No Hx Dementia: No Hx Diabetes: No Hx Gastrointestinal Disorders: No Hx Liver Disease: No Hx Genitourinary Disorders: No Hx Sexually Transmitted Disorders: Yes (herpes) Hx Renal Disease (ESRD): No Hx Thyroid Disease: No Hx Human Immunodeficiency Virus (HIV): No (negative) Hx Hepatitis C: Yes (treated) Hx Depression: Yes Hx Suicide Attempt: No (denies) Hx Bipolar Disorder: No Hx Schizophrenia: No - Patient Surgical History Past Surgical History: Yes Hx Neurologic Surgery: Yes (neck) Hx Cataract Extraction: No Hx Cardiac Surgery: No Hx Lung Surgery: No Hx Breast Surgery: No Hx Breast Biopsy: No Hx Abdominal Surgery: No Hx Appendectomy: No Hx Cholecystectomy: No Hx Genitourinary Surgery: No Hx Section: Yes Hx Orthopedic Surgery: Yes (back) Hx Hysterectomy: No Other Surgical History: Spinal fusion in 2003 Anesthesia Reaction: No - PPD History Previous Implant?: Yes Documented Results: Positive w/proof Implanted On Prior R Admission?: No PPD to be Administered?: No - Reproductive History Patient is a Female of Child Bearing Age (11 -55 yrs old): No Last Menstrual Period: 07/07/07 - Smoking Cessation Smoking history: Current every day smoker Have you smoked in the past 12 months: Yes Aproximately how many cigarettes per day: 6 Cigars Per Day: 0 Hx Chewing Tobacco Use: No Initiated information on smoking cessation: Yes 'Breaking Loose' booklet given: 08/06/16 - Substance & Tx. History Hx Alcohol Use: Yes Hx Substance Use: Yes Substance Use Type: Alcohol, Cocaine, Heroin - Substances Abused Alcohol Route: Oral Frequency: Daily Amount used: wine coolers (2-3) Age of first use: 12 Date of Last Use: 08/05/16 Heroin Route: Injection Frequency: Daily Amount used: 20 bags Age of first use: 21 Date of Last Use: 08/06/16 Cocaine Route: Injection Frequency: Daily Amount used: $40 Age of first use: 14 Date of Last Use: 08/05/16 Family Disease History - Family Disease History Family Disease History: Heart Disease: Mother (), Other: Father ( ), Brother (head trauma) Admission Physical Exam [facility] - Vital Signs Vital Signs: Vital Signs - 24 hr 08/06/16 15:01 Temperature 96.4 F L Pulse Rate 84 Respiratory 20 Rate Blood Pressure 109/67 - Physical General Appearance: Yes: Appropriately Dressed, Moderate Distress, Tremorous, Irritable, Sweating, Anxious HEENTM: Yes: Hearing grossly Normal, Normal Voice, Nasal Congestion Respiratory: Yes: Lungs Clear, Normal Breath Sounds, No Respiratory Distress Neck: Yes: Within Normal Limits Breast: Yes: Within Normal Limits Cardiology: Yes: Regular Rhythm, Regular Rate, S1, S2 Abdominal: Yes: Normal Bowel Sounds, Soft Genitourinary: Yes: Within Normal Limits Back: Yes: Normal Inspection Musculoskeletal: Yes: Back pain Extremities: Yes: Normal Inspection, Non-Tender, Tremors Neurological: Yes: healthcare liaison II-XII NML intact, Fully Oriented, Alert, Normal Response Integumentary: Yes: Normal Color, Diaphoresis, Track Rinaldi Lymphatic: Yes: Within Normal Limits - Diagnostic (1) Alcohol dependence with uncomplicated withdrawal Current Visit: Yes Status: Chronic (2) Cocaine dependence, uncomplicated Current Visit: Yes Status: Chronic (3) Nicotine dependence Current Visit: Yes Status: Chronic Qualifiers: Nicotine product type: cigarettes Substance use status: uncomplicated Qualified Code(s): F17.210 - Nicotine dependence, cigarettes, uncomplicated Cleared for Admission [facility] - Detox or Rehab [facility] Level of Care: Medically Managed Detox Regimen/Protocol: Methadone/Librium, Methadone/Valium [facility] Breath Alcohol Content Breath Alcohol Content: 0 Urine Pregancy Test - Result Urine Test Results: Negative- NO Line Present Urine Drug Screen - Results Drug Screen Negative: No Urine Drug Screen Results: EKATERINA-Cocaine, OPI-Opiates
[2016-08-06] MEDS ORDERED: hydrOXYzine PAMOATE 50 MG CAPSULE (FP) PO PRN (17:02)
[2016-08-06] MEDS ORDERED: ACETAMINOPHEN 325 MG TABLET (FP) PO PRN (17:02)
[2016-08-06] MEDS ORDERED: LOPERAMIDE HCL 2 MG CAPSULE PO PRN (17:02)
[2016-08-06] MEDS ORDERED: MENTHOL/PHENOL 1 EACH UD MM PRN (17:02)
[2016-08-06] MEDS ORDERED: guaiFENesin/D-METHORPHAN HB 10 ML UNIT-DOSE CUPS PO PRN (17:02)
[2016-08-06] MEDS ORDERED: MAG HYDROX/AL HYDROX/SIMETH 30 ML UNIT-DOSE CUP PO PRN (17:02)
[2016-08-06] MEDS ORDERED: MAGNESIUM CITRATE 300 ML BOTTLE PO PRN (17:02)
[2016-08-06] MEDS ORDERED: IBUPROFEN 400 MG TABLET (FP) PO PRN (17:02)
[2016-08-06] MEDS ORDERED: P-EPHED 60MG/TRIPROLIDI 2.5MG TABLET PO PRN (17:02)
[2016-08-06] MEDS ORDERED: chlordiazePOXIDE HCL 25 MG CAPSULE PO PRN (17:02)
[2016-08-06] MEDS ORDERED: chlordiazePOXIDE HCL 25 MG CAPSULE PO ONE (17:30)
[2016-08-06] MEDS ORDERED: METHADONE HCL 10 MG TABLET (FOR DETOX USE ONLY) PO ONE ×2 (17:30→23:00)
[2016-08-06] MEDS: chlordiazePOXIDE HCL 25 MG CAPSULE PO SCH ×2 (18:46→22:35)
[2016-08-06] MEDS: GABAPENTIN 300 MG CAPSULE (FP) PO SCH (22:35)
[2016-08-06] MEDS: THIAMINE HCL 100 MG TABLET (FP) PO SCH (22:35)
[2016-08-06 23:54] LABS: URINE APPEARANCE SLCLOUDY; URINE BILIRUBIN NEGATIVE (NEGATIVE); URINE BLOOD NEGATIVE (NEGATIVE); URINE COLOR DKYELLOW; URINE GLUCOSE (UA) NEGATIVE (NEGATIVE); URINE KETONE NEGATIVE (NEGATIVE); URINE NITRITE NEGATIVE (NEGATIVE); URINE PROTEIN NEGATIVE (NEGATIVE); URINE UROBILINOGEN NEGATIVE E.U./dl (0.2-1.0)
[2016-08-07 00:11] LABS: URINE LEUK ESTERASE 3+ (NEGATIVE)
[2016-08-07 00:28] LABS: CALCIUM OXALATE CRYSTALS MODERATE /hpf (NONE SEEN); URINE MUCUS MANY; URINE RBC 6 /hpf (0-3); URINE WBC 38 /hpf (3-5)
[2016-08-07] MEDS: chlordiazePOXIDE HCL 25 MG CAPSULE PO SCH (05:42)
[2016-08-07] MEDS: GABAPENTIN 300 MG CAPSULE (FP) PO SCH ×3 (05:42→22:26)
[2016-08-07] MEDS ORDERED: METHADONE HCL 10 MG TABLET (FOR DETOX USE ONLY) PO SCH (10:00)
[2016-08-07 10:01] LABS: MCHC 34.4 g/dl (32.0-36.0); MEAN CELL VOLUME 87.4 fl (80-96); MEAN PLT VOLUME 9.4 fl (7.5-11.1); PLATELET COUNT 182 K/MM3 (134-434); RDW 13.3 % (11.6-15.6); WHITE BLOOD COUNT 7.6 K/mm3 (4.0-10.0)
[2016-08-07] MEDS ORDERED: diazePAM 5 MG TABLET PO ONE (10:15)
[2016-08-07 10:46] LABS: ALK PHOS 84 U/L (45-117); ANION GAP 12 (8-16); BILIRUBIN,TOTAL 0.4 mg/dL (0.2-1.0); CALCIUM 8.5 mg/dL (8.5-10.1); CO2 26 mmol/L (21-32); CREATININE 0.9 mg/dL (0.55-1.02); GLUCOSE,RANDOM 100 mg/dL (74-106); SGOT/AST 15 U/L (15-37); SGPT/ALT 19 U/L (12-78); TOT PROT 7.2 g/dl (6.4-8.2)
--- NOTE | 2016-08-07 10:59 | CONSULT ---
[facility] Psychiatric Consult - Data Date of interview: 08/07/16 Admission source: [facility] Identifying data: Readmission to [facility] for this 51 y/o [place] female from [place] descent seeking detox treatment for alcohol,heroin and cocaine dependence.Patient is ,a mother of two,domiciled,unemplolyed and supported on SSD benefits. Substance Abuse History: - Smoking Cessation. Smoking history: Current every day smoker. Have you smoked in the past 12 months: Yes. Aproximately how many cigarettes per day: 6. Cigars Per Day: 0. Hx Chewing Tobacco Use: No. Initiated information on smoking cessation: Yes. 'Breaking Loose' booklet given : 08/06/16. - Substance & Tx. History. Hx Alcohol Use: Yes. Hx Substance Use : Yes. Substance Use Type: Alcohol, Cocaine, Heroin. - Substances Abused. Alcohol. Route: Oral. Frequency: Daily. Amount used: wine coolers (2-3). Age of first use: 12. Date of Last Use: 08/05/16. Heroin. Route: Injection. Frequency: Daily. Amount used: 20 bags. Age of first use: 21. Date of Last Use: 08/06/16. Cocaine. Route: Injection. Frequency: Daily. Amount used: $40. Age of first use: 14. Date of Last Use: 08/05/16. Confirmed by patient. Medical History: Hepatitis C,herpes genitalis and a history of spinal fusion ( 2003). Psychiatric History: No history of psychiatric hospitalizations.Ms Choudhary reports that she sees a private psychiatrist,in [facility],to address depression and anxiety.She is currently on Wellbutrin XL 300 mg/day + gabapentin 300 mg po tid.Patient endorses adequate adherence to her medications.No history of suicide attempts. Physical/Sexual Abuse/Trauma History: Patient denies. Additional Comment: Urine Drug Screen Results: EKATERINA-Cocaine, OPI-Opiates.Noted. Mental Status Exam - Mental Status Exam Alert and Oriented to: Time, Place, Person Cognitive Function: Good Patient Appearance: Well Groomed Mood: Nervous, Anxious Affect: Mood Congruent Patient Behavior: Fatigued, Cooperative Speech Pattern: Clear, Appropriate Voice Loudness: Normal Thought Process: Goal Oriented Thought Disorder: Not Present Hallucinations: Denies Suicidal Ideation: Denies Homicidal Ideation: Denies Insight/Judgement: Poor Sleep: Fair Appetite: Good Muscle strength/Tone: Normal Gait/Station: Normal Psychiatric Findings - Problem List ([place] 1, 2,3) (1) Alcohol dependence with uncomplicated withdrawal Current Visit: Yes Status: Acute (2) Cocaine dependence, uncomplicated Current Visit: Yes Status: Acute (3) Opioid dependence with withdrawal Current Visit: Yes Status: Acute (4) Nicotine dependence Current Visit: Yes Status: Acute Qualifiers: Nicotine product type: cigarettes Substance use status: uncomplicated Qualified Code(s): F17.210 - Nicotine dependence, cigarettes, uncomplicated (5) Drug-induced mood disorder Current Visit: Yes Status: Acute (6) Depressive disorder Current Visit: Yes Status: Chronic (7) Use of cane as ambulatory aid Current Visit: Yes Status: Chronic - Initial Treatment Plan Initial Treatment Plan: Psychoeducation.Detoxification in progress.Welbutrin XL 300 mg po daily.Patient is made aware of risk of seizures.Eager to resume this medication.Observation.Patient declines to have scripts at discharge (enough supply of medications at home).
[2016-08-07] MEDS: NICOTINE 21 MG/24 HOURS TOPICAL PATCH TD SCH (11:11)
[2016-08-07] MEDS: PRENATAL VITAMINS W/ FOLIC ACID TABLET (FP) PO SCH (11:11)
[2016-08-07] MEDS: valACYclovir HCL 500 MG TABLET (FP) PO SCH (11:11)
[2016-08-07] MEDS: MAGNESIUM HYDROX 2400MG/30ML ORAL SUSPENSION 30 ML CUP PO PRN (11:13)
--- NOTE | 2016-08-07 12:21 | EKG ---
Test Reason : Blood Pressure : / mmHG Vent. Rate : 058 BPM Atrial Rate : 058 BPM P-R Int : 164 ms QRS Dur : 102 ms QT Int : 448 ms P-R-T Axes : 015 043 037 degrees QTc Int : 439 ms SINUS BRADYCARDIA INCOMPLETE RIGHT BUNDLE BRANCH BLOCK BORDERLINE ECG WHEN COMPARED WITH ECG OF 07-JUL-2016 11:02, NO SIGNIFICANT CHANGE WAS FOUND Confirmed by MD ESTEVAN, EVE ([id number]) on 08/07/2016 12:20:41 PM Referred By: Confirmed By:EVE BARRETO MD
--- NOTE | 2016-08-07 14:48 | PN ---
S CIWA - CIWA Score Nausea/Vomitin Muscle Tremors: 3 Anxiety: 3 Agitation: 3 Paroxysmal Sweats: 2 Orientation: 0-Oriented Tacttile Disturbances: 1-Very Mild Itch/Numbness Auditory Disturbances: 1-Very Mild Visual Disturbances: 1-Very Mild Sensitivity Headache: 2-Mild CIWA-Ar Total Score: 19 [facility]HS COWS - Scale Resting Pulse: 0= AR 80 or Below Sweatin= Chills/Flushing Restless Observation: 3= Extraneous Movement Pupil Size: 1= Pupils >than Normal Bone or Joint Aches: 2= Severe Diffuse Aches Runny Nose/ Eye Tearin= Runny Nose/Eyes GI Upset > 30mins: 3= Vomiting/Diarrhea Tremor Observation of Outstretched Hands: 2= Slight Tremor Visible Yawning Observation: 1= 1-2x During Session Anxiety or Irritability: 2=Irritable/Anxious Goose Flesh Skin: 0=Smooth Skin COWS Score: 17 S Progress Note (SOAP) Subjective: ALERT,IRRITABLE.ANXIOUS,INTERRUPTED SLEEP,TREMOR,PAIN IN THE BODY AND BACK Objective: 08/07/16 14:46 Vital Signs Temperature 97.9 F 08/07/16 10:00 Pulse Rate 69 08/07/16 10:00 Respiratory Rate 20 08/07/16 10:00 Blood Pressure 91/56 08/07/16 10:00 O2 Sat by Pulse Oximetry (%) EKG NSR,INCOMPLETE RBBB NO CHEST PAIN,NO SOB,NO DIZZINESS Laboratory Last Values WBC 7.6 K/mm3 (4.0-10.0) 08/07/16 06:00 RBC 3.96 M/mm3 (3.60-5.2) 08/07/16 06:00 Hgb 11.9 GM/dL (10.7-15.3) 08/07/16 06:00 Hct 34.6 % (32.4-45.2) 08/07/16 06:00 MCV 87.4 fl (80-96) 08/07/16 06:00 MCHC 34.4 g/dl (32.0-36.0) 08/07/16 06:00 RDW 13.3 % (11.6-15.6) 08/07/16 06:00 Plt Count 182 K/MM3 (134-434) 08/07/16 06:00 MPV 9.4 fl (7.5-11.1) D 08/07/16 06:00 Sodium 141 mmol/L (136-145) 08/07/16 06:00 Potassium 3.7 mmol/L (3.5-5.1) 08/07/16 06:00 Chloride 103 mmol/L (98-107) 08/07/16 06:00 Carbon Dioxide 26 mmol/L (21-32) 08/07/16 06:00 Anion Gap 12 (8-16) 08/07/16 06:00 BUN 15 mg/dL (7-18) D 08/07/16 06:00 Creatinine 0.9 mg/dL (0.55-1.02) D 08/07/16 06:00 Creat Clearance w eGFR > 60 (>60) 08/07/16 06:00 Random Glucose 100 mg/dL (74-106) 08/07/16 06:00 Calcium 8.5 mg/dL (8.5-10.1) 08/07/16 06:00 Total Bilirubin 0.4 mg/dL (0.2-1.0) D 08/07/16 06:00 AST 15 U/L (15-37) 08/07/16 06:00 ALT 19 U/L (12-78) D 08/07/16 06:00 Alkaline Phosphatase 84 U/L (45-117) 08/07/16 06:00 Total Protein 7.2 g/dl (6.4-8.2) 08/07/16 06:00 Albumin 4.0 g/dl (3.4-5.0) D 08/07/16 06:00 Urine Color Dkyellow 08/06/16 23:40 Urine Appearance Slcloudy 08/06/16 23:40 Urine pH 5.0 (5.0-8.0) 08/06/16 23:40 Ur Specific [place] 1.025 (1.005-1.025) 08/06/16 23:40 Urine Protein Negative (NEGATIVE) 08/06/16 23:40 Urine Glucose (UA) Negative (NEGATIVE) 08/06/16 23:40 Urine Ketones Negative (NEGATIVE) 08/06/16 23:40 Urine Blood Negative (NEGATIVE) 08/06/16 23:40 Urine Nitrite Negative (NEGATIVE) 08/06/16 23:40 Urine Bilirubin Negative (NEGATIVE) 08/06/16 23:40 Urine Urobilinogen Negative E.U./dl (0.2-1.0) 08/06/16 23:40 Ur Leukocyte Esterase 3+ (NEGATIVE) H D 08/06/16 23:40 Urine RBC 6 /hpf (0-3) 08/06/16 23:40 Urine WBC 38 /hpf (3-5) 08/06/16 23:40 Ur Epithelial Cells Many /hpf (FEW) 08/06/16 23:40 Calcium Oxalate Crystal Moderate /hpf (NONE SEEN) 08/06/16 23:40 Urine Mucus Many 08/06/16 23:40 RPR Titer Reactive 1:1 (NONREACTIVE) H 08/07/16 06:00 T.pallidum Ab (MHA) Previously reactive (NONREACTIVE) 08/07/16 06:00 Assessment: 08/07/16 14:47 WITHDRAWAL SYMPTOM Plan: CONTINUE DETOX,REPEAT UA
[2016-08-07] MEDS: diazePAM 5 MG TABLET PO SCH ×2 (14:54→22:26)
[2016-08-07] MEDS ORDERED: chlordiazePOXIDE HCL 25 MG CAPSULE PO SCH (17:00)
[2016-08-07] MEDS: THIAMINE HCL 100 MG TABLET (FP) PO SCH (22:26)
[2016-08-07] MEDS: diphenhydrAMINE HCL 50 MG CAPSULE PO PRN (22:26)
[2016-08-08] MEDS: diazePAM 5 MG TABLET PO SCH ×3 (05:56→22:23)
[2016-08-08] MEDS: GABAPENTIN 300 MG CAPSULE (FP) PO SCH ×3 (05:56→22:23)
[2016-08-08] MEDS: METHADONE HCL 5 MG TABLET (FOR DETOX USE ONLY) PO SCH (10:27)
[2016-08-08] MEDS: diazePAM 5 MG TABLET PO PRN (10:27)
[2016-08-08] MEDS: NICOTINE 21 MG/24 HOURS TOPICAL PATCH TD SCH (10:27)
[2016-08-08] MEDS: valACYclovir HCL 500 MG TABLET (FP) PO SCH (10:27)
[2016-08-08] MEDS: PRENATAL VITAMINS W/ FOLIC ACID TABLET (FP) PO SCH (10:27)
[2016-08-08] MEDS: MAGNESIUM HYDROX 2400MG/30ML ORAL SUSPENSION 30 ML CUP PO PRN (10:38)
--- NOTE | 2016-08-08 11:07 | EKG ---
Test Reason : Blood Pressure : / mmHG Vent. Rate : 061 BPM Atrial Rate : 061 BPM P-R Int : 162 ms QRS Dur : 084 ms QT Int : 462 ms P-R-T Axes : 013 030 028 degrees QTc Int : 465 ms NORMAL SINUS RHYTHM NORMAL ECG WHEN COMPARED WITH ECG OF 06-AUG-2016 16:53, NO SIGNIFICANT CHANGE WAS FOUND Confirmed by MD ESTEVAN, EVE ([id number]) on 08/08/2016 11:07:02 AM Referred By: Confirmed By:EVE BARRETO MD
--- NOTE | 2016-08-08 12:36 | PN ---
[facility] CIWA - CIWA Score Nausea/Vomitin Muscle Tremors: 3 Anxiety: 2 Agitation: 2 Paroxysmal Sweats: 1-Minimal Palms Moist Orientation: 0-Oriented Tacttile Disturbances: 1-Very Mild Itch/Numbness Auditory Disturbances: 1-Very Mild Visual Disturbances: 1-Very Mild Sensitivity Headache: 2-Mild CIWA-Ar Total Score: 16 BHS COWS - Scale Resting Pulse: 0= [place] 80 or Below Sweatin= Chills/Flushing Restless Observation: 3= Extraneous Movement Pupil Size: 1= Pupils >than Normal Bone or Joint Aches: 2= Severe Diffuse Aches Runny Nose/ Eye Tearin= Runny Nose/Eyes GI Upset > 30mins: 2= Nausea/Diarrhea Tremor Observation of Outstretched Hands: 2= Slight Tremor Visible Yawning Observation: 1= 1-2x During Session Anxiety or Irritability: 2=Irritable/Anxious Goose Flesh Skin: 0=Smooth Skin COWS Score: 16 [facility] Progress Note (SOAP) Subjective: ALERT,IRRITABLE,ANXIOUS,INTERRUPTED SLEEP,PAIN IN THE BODY AND BACK Objective: 08/08/16 12:35 Vital Signs Temperature 98.1 F 08/08/16 09:53 Pulse Rate 77 08/08/16 09:53 Respiratory Rate 16 08/08/16 09:53 Blood Pressure 96/70 08/08/16 09:53 O2 Sat by Pulse Oximetry (%) 08/09/16 05:27 Laboratory Last Values WBC 7.6 K/mm3 (4.0-10.0) 08/07/16 06:00 RBC 3.96 M/mm3 (3.60-5.2) 08/07/16 06:00 Hgb 11.9 GM/dL (10.7-15.3) 08/07/16 06:00 Hct 34.6 % (32.4-45.2) 08/07/16 06:00 MCV 87.4 fl (80-96) 08/07/16 06:00 MCHC 34.4 g/dl (32.0-36.0) 08/07/16 06:00 RDW 13.3 % (11.6-15.6) 08/07/16 06:00 Plt Count 182 K/MM3 (134-434) 08/07/16 06:00 MPV 9.4 fl (7.5-11.1) D 08/07/16 06:00 Sodium 141 mmol/L (136-145) 08/07/16 06:00 Potassium 3.7 mmol/L (3.5-5.1) 08/07/16 06:00 Chloride 103 mmol/L (98-107) 08/07/16 06:00 Carbon Dioxide 26 mmol/L (21-32) 08/07/16 06:00 Anion Gap 12 (8-16) 08/07/16 06:00 BUN 15 mg/dL (7-18) D 08/07/16 06:00 Creatinine 0.9 mg/dL (0.55-1.02) D 08/07/16 06:00 Creat Clearance w eGFR > 60 (>60) 08/07/16 06:00 Random Glucose 100 mg/dL (74-106) 08/07/16 06:00 Calcium 8.5 mg/dL (8.5-10.1) 08/07/16 06:00 Total Bilirubin 0.4 mg/dL (0.2-1.0) D 08/07/16 06:00 AST 15 U/L (15-37) 08/07/16 06:00 ALT 19 U/L (12-78) D 08/07/16 06:00 Alkaline Phosphatase 84 U/L (45-117) 08/07/16 06:00 Total Protein 7.2 g/dl (6.4-8.2) 08/07/16 06:00 Albumin 4.0 g/dl (3.4-5.0) D 08/07/16 06:00 Urine Color Dkyellow 08/06/16 23:40 Urine Appearance Slcloudy 08/06/16 23:40 Urine pH 5.0 (5.0-8.0) 08/06/16 23:40 Ur Specific [place] 1.025 (1.005-1.025) 08/06/16 23:40 Urine Protein Negative (NEGATIVE) 08/06/16 23:40 Urine Glucose (UA) Negative (NEGATIVE) 08/06/16 23:40 Urine Ketones Negative (NEGATIVE) 08/06/16 23:40 Urine Blood Negative (NEGATIVE) 08/06/16 23:40 Urine Nitrite Negative (NEGATIVE) 08/06/16 23:40 Urine Bilirubin Negative (NEGATIVE) 08/06/16 23:40 Urine Urobilinogen Negative E.U./dl (0.2-1.0) 08/06/16 23:40 Ur Leukocyte Esterase 3+ (NEGATIVE) H D 08/06/16 23:40 Urine RBC 6 /hpf (0-3) 08/06/16 23:40 Urine WBC 38 /hpf (3-5) 08/06/16 23:40 Ur Epithelial Cells Many /hpf (FEW) 08/06/16 23:40 Calcium Oxalate Crystal Moderate /hpf (NONE SEEN) 08/06/16 23:40 Urine Mucus Many 08/06/16 23:40 RPR Titer Reactive 1:1 (NONREACTIVE) H 08/07/16 06:00 T.pallidum Ab (MHA) Previously reactive (NONREACTIVE) 08/07/16 06:00 PREVIOUSLY TREATED FOR SYPHILIS Assessment: 08/08/16 12:35 WITHDRAWAL SYMPTOM 08/09/16 05:28 Plan: CONTINUE DETOX,REPEAT UA
[2016-08-08] MEDS ORDERED: chlordiazePOXIDE 5 MG CAPSULE PO SCH (17:00)
[2016-08-08] MEDS: diphenhydrAMINE HCL 50 MG CAPSULE PO PRN (22:23)
[2016-08-08] MEDS: THIAMINE HCL 100 MG TABLET (FP) PO SCH (22:23)
[2016-08-08] MEDS: CYCLOBENZAPRINE HCL 10 MG TABLET (FP) PO PRN (22:25)
[2016-08-09] MEDS: GABAPENTIN 300 MG CAPSULE (FP) PO SCH ×3 (05:43→22:19)
[2016-08-09] MEDS: diazePAM 5 MG TABLET PO PRN ×2 (05:44→15:28)
--- NOTE | 2016-08-09 09:53 | PN ---
[facility] Progress Note (SOAP) Subjective: anxiety sweats irritable body aches interrupted sleep burning when i void Objective: 08/09/16 09:51 Vital Signs Temperature 97.7F 08/09/16 10:00 Pulse Rate 86 08/09/16 10:00 Respiratory Rate 18 08/09/16 10:00 Blood Pressure 100/64 08/09/16 10:00 O2 Sat by Pulse Oximetry (%) Laboratory Tests 08/06/16 08/07/16 08/07/16 23:40 06:00 06:00 WBC 7.6 RBC 3.96 Hgb 11.9 Hct 34.6 MCV 87.4 MCHC 34.4 RDW 13.3 Plt Count 182 MPV 9.4 D Sodium 141 Potassium 3.7 Chloride 103 Carbon Dioxide 26 Anion Gap 12 BUN 15 D Creatinine 0.9 D Creat Clearance w eGFR > 60 Random Glucose 100 Calcium 8.5 Total Bilirubin 0.4 D AST 15 ALT 19 D Alkaline Phosphatase 84 Total Protein 7.2 Albumin 4.0 D Urine Color Dkyellow Urine Appearance Slcloudy Urine pH 5.0 Ur Specific [place] 1.025 Urine Protein Negative Urine Glucose (UA) Negative Urine Ketones Negative Urine Blood Negative Urine Nitrite Negative Urine Bilirubin Negative Urine Urobilinogen Negative Ur Leukocyte Esterase 3+ H D Urine RBC 6 Urine WBC 38 Ur Epithelial Cells Many Calcium Oxalate Crystal Moderate Urine Mucus Many RPR Titer T.pallidum Ab (A) 08/07/16 06:00 WBC RBC Hgb Hct MCV MCHC RDW Plt Count MPV Sodium Potassium Chloride Carbon Dioxide Anion Gap BUN Creatinine Creat Clearance w eGFR Random Glucose Calcium Total Bilirubin AST ALT Alkaline Phosphatase Total Protein Albumin Urine Color Urine Appearance Urine pH Ur Specific [place] Urine Protein Urine Glucose (UA) Urine Ketones Urine Blood Urine Nitrite Urine Bilirubin Urine Urobilinogen Ur Leukocyte Esterase Urine RBC Urine WBC Ur Epithelial Cells Calcium Oxalate Crystal Urine Mucus RPR Titer Reactive 1:1 H T.pallidum Ab (A) Previously reactive repeat u/a awake/alert ambulating no acute distress order bactrium Assessment: 08/09/16 09:53 withdrawal sx Plan: continue detox increase fluids f/u pending repeated u/a bactrium abx
[2016-08-09] MEDS: PRENATAL VITAMINS W/ FOLIC ACID TABLET (FP) PO SCH (10:33)
[2016-08-09] MEDS: diazePAM 5 MG TABLET PO SCH ×2 (10:33→22:19)
[2016-08-09] MEDS: valACYclovir HCL 500 MG TABLET (FP) PO SCH (10:33)
[2016-08-09] MEDS: NICOTINE 21 MG/24 HOURS TOPICAL PATCH TD SCH (10:34)
[2016-08-09] MEDS: METHADONE HCL 5 MG TABLET (FOR DETOX USE ONLY) PO SCH (10:34)
[2016-08-09] MEDS: SULFAMETHOXAZOLE/TRIMETHOPRIM 800MG/160MG D.S. TABLET PO SCH (12:17)
[2016-08-09 15:03] LABS: URINE APPEARANCE SLCLOUDY; URINE BILIRUBIN NEGATIVE (NEGATIVE); URINE BLOOD NEGATIVE (NEGATIVE); URINE COLOR LTYELLOW; URINE GLUCOSE (UA) NEGATIVE (NEGATIVE); URINE KETONE NEGATIVE (NEGATIVE); URINE NITRITE NEGATIVE (NEGATIVE); URINE PROTEIN NEGATIVE (NEGATIVE); URINE UROBILINOGEN NEGATIVE E.U./dl (0.2-1.0)
[2016-08-09 15:30] LABS: URINE LEUK ESTERASE 2+ (NEGATIVE)
[2016-08-09 16:16] LABS: URINE MUCUS RARE; URINE RBC 1 /hpf (0-3); URINE WBC 2 /hpf (3-5)
[2016-08-09] MEDS ORDERED: chlordiazePOXIDE HCL 10 MG CAPSULE PO SCH (17:00)
[2016-08-09] MEDS: diphenhydrAMINE HCL 50 MG CAPSULE PO PRN (22:19)
[2016-08-09] MEDS: THIAMINE HCL 100 MG TABLET (FP) PO SCH (22:19)
[2016-08-09] MEDS: CYCLOBENZAPRINE HCL 10 MG TABLET (FP) PO PRN (22:20)
[2016-08-10] MEDS: GABAPENTIN 300 MG CAPSULE (FP) PO SCH ×3 (05:27→22:25)
[2016-08-10] MEDS: diazePAM 5 MG TABLET PO PRN ×3 (05:27→09:27)
--- NOTE | 2016-08-10 09:08 | PN ---
[facility] Progress Note (SOAP) Subjective: interrupted sleep, sweats, nausea, anxiety Objective: 08/10/16 09:05 Vital Signs Temperature 97.5 F L 08/10/16 06:33 Pulse Rate 70 08/10/16 06:33 Respiratory Rate 16 08/10/16 06:33 Blood Pressure 105/61 08/10/16 06:33 O2 Sat by Pulse Oximetry (%) Laboratory Tests 08/06/16 08/07/16 08/07/16 23:40 06:00 06:00 WBC 7.6 RBC 3.96 Hgb 11.9 Hct 34.6 MCV 87.4 MCHC 34.4 RDW 13.3 Plt Count 182 MPV 9.4 D Sodium 141 Potassium 3.7 Chloride 103 Carbon Dioxide 26 Anion Gap 12 BUN 15 D Creatinine 0.9 D Creat Clearance w eGFR > 60 Random Glucose 100 Calcium 8.5 Total Bilirubin 0.4 D AST 15 ALT 19 D Alkaline Phosphatase 84 Total Protein 7.2 Albumin 4.0 D Urine Color Dkyellow Urine Appearance Slcloudy Urine pH 5.0 Ur Specific [place] 1.025 Urine Protein Negative Urine Glucose (UA) Negative Urine Ketones Negative Urine Blood Negative Urine Nitrite Negative Urine Bilirubin Negative Urine Urobilinogen Negative Ur Leukocyte Esterase 3+ H D Urine RBC 6 Urine WBC 38 Ur Epithelial Cells Many Calcium Oxalate Crystal Moderate Urine Mucus Many RPR Titer T.pallidum Ab (A) 08/07/16 08/09/16 06:00 09:40 WBC RBC Hgb Hct MCV MCHC RDW Plt Count MPV Sodium Potassium Chloride Carbon Dioxide Anion Gap BUN Creatinine Creat Clearance w eGFR Random Glucose Calcium Total Bilirubin AST ALT Alkaline Phosphatase Total Protein Albumin Urine Color Ltyellow Urine Appearance Slcloudy Urine pH 8.0 D Ur Specific [place] 1.015 Urine Protein Negative Urine Glucose (UA) Negative Urine Ketones Negative Urine Blood Negative Urine Nitrite Negative Urine Bilirubin Negative Urine Urobilinogen Negative Ur Leukocyte Esterase 2+ H Urine RBC 1 Urine WBC 2 Ur Epithelial Cells Rare Calcium Oxalate Crystal Urine Mucus Rare RPR Titer Reactive 1:1 H T.pallidum Ab (MHA) Previously reactive pt aox3 in nad ambulating but easily excitable. Assessment: 08/10/16 09:06 withdrawal sx's anxiety Plan: cont. detox increase fluids speak to counselor about after care/rehab d/c in am
[2016-08-10] MEDS ORDERED: METHADONE HCL 10 MG TABLET (FOR DETOX USE ONLY) PO SCH (10:00)
[2016-08-10] MEDS: PRENATAL VITAMINS W/ FOLIC ACID TABLET (FP) PO SCH (10:36)
[2016-08-10] MEDS: valACYclovir HCL 500 MG TABLET (FP) PO SCH (10:36)
[2016-08-10] MEDS: diazePAM 5 MG TABLET PO SCH ×2 (10:36→22:25)
[2016-08-10] MEDS: SULFAMETHOXAZOLE/TRIMETHOPRIM 800MG/160MG D.S. TABLET PO SCH (10:36)
[2016-08-10] MEDS: NICOTINE 21 MG/24 HOURS TOPICAL PATCH TD SCH (10:36)
[2016-08-10] MEDS: MAGNESIUM HYDROX 2400MG/30ML ORAL SUSPENSION 30 ML CUP PO PRN (10:39)
--- NOTE | 2016-08-10 15:53 | EKG ---
Test Reason : Blood Pressure : / mmHG Vent. Rate : 078 BPM Atrial Rate : 078 BPM P-R Int : 000 ms QRS Dur : 094 ms QT Int : 400 ms P-R-T Axes : 000 000 094 degrees QTc Int : 456 ms UNDETERMINED RHYTHM RSR' OR QR PATTERN IN V1 SUGGESTS RIGHT VENTRICULAR CONDUCTION DELAY SMALL Q IN LATERAL LEADS ABNORMAL ECG WHEN COMPARED WITH ECG OF 07-AUG-2016 14:21, T WAVE VARIATION CANNOT RULE OUT LATERAL INFARCT CLINICAL CORRELATION IS RECOMMENDED Confirmed by DOMINICK MESSER MD ([id number]) on 08/10/2016 3:52:44 PM Referred By: Confirmed By:DOMINICK MESSER MD
[2016-08-10] MEDS: THIAMINE HCL 100 MG TABLET (FP) PO SCH (22:25)
[2016-08-10] MEDS: CYCLOBENZAPRINE HCL 10 MG TABLET (FP) PO PRN (22:25)
[2016-08-11] MEDS ORDERED: METHADONE HCL 5 MG TABLET (FOR DETOX USE ONLY) PO SCH (06:00)
[2016-08-11] MEDS: GABAPENTIN 300 MG CAPSULE (FP) PO SCH (06:03)
--- NOTE | 2016-08-11 08:53 | DS ---
[facility] Detox Discharge Summary Admission Date: 08/06/16 Discharge Date: 08/11/16 - History Present History: Alcohol Dependence, Cocaine Dependence, Opioid Dependence - Physical Exam Results Vital Signs: Vital Signs Temperature 97.7 F 08/11/16 06:39 Pulse Rate 73 08/11/16 06:39 Respiratory Rate 18 08/11/16 06:39 Blood Pressure 115/77 08/11/16 06:39 O2 Sat by Pulse Oximetry (%) - Treatment Hospital Course: Detox Protocol Followed, Detoxed Safely, Responded well, Discharged Condition Good, Rehab Referral Accepted - Medication Discharge Medications: Ambulatory Orders Valacyclovir HCl [Valtrex -] 500 mg PO DAILY 07/06/16 Bupropion HCl [Wellbutrin Xl -] 300 mg PO DAILY #30 tab 07/07/16 Gabapentin [Neurontin -] 300 mg PO TID #90 cap MDD 900 07/07/16 - Diagnosis (1) Alcohol dependence with uncomplicated withdrawal Current Visit: Yes Status: Chronic (2) Cocaine dependence, uncomplicated Current Visit: Yes Status: Chronic (3) Nicotine dependence Current Visit: Yes Status: Chronic Qualifiers: Nicotine product type: cigarettes Substance use status: uncomplicated Qualified Code(s): F17.210 - Nicotine dependence, cigarettes, uncomplicated - AMA Did Patient Leave Against Medical Advice: No
[2016-08-11] MEDS: PRENATAL VITAMINS W/ FOLIC ACID TABLET (FP) PO SCH (09:59)
[2016-08-11] MEDS: SULFAMETHOXAZOLE/TRIMETHOPRIM 800MG/160MG D.S. TABLET PO SCH (09:59)
[2016-08-11] MEDS: valACYclovir HCL 500 MG TABLET (FP) PO SCH (09:59)
[2016-08-11] MEDS ORDERED: diazePAM 5 MG TABLET PO SCH (10:00)
[2016-08-11] MEDS: NICOTINE 21 MG/24 HOURS TOPICAL PATCH TD SCH (10:01)
[2016-08-11 10:52] VITALS: BP 100/66; PULSE 90; TEMP 98.1
== END 2016-08-11 10:45 | disposition other institution (70) | DRG 897 ==
LOC: YASAS 11:07 → Y6N 16:38
PROVIDERS: ADMIT Internal Medicine; ATTEND Internal Medicine
PROC: HZ2ZZZZ Detoxification Services for Substance Abuse Treatment (ICD-10-PCS; principal; 2016-08-06)
DX: F11.23 Opioid dependence with withdrawal (principal); F14.20 Cocaine dependence, uncomplicated; F10.230 Alcohol dependence with withdrawal, uncomplicated; F17.210 Nicotine dependence, cigarettes, uncomplicated; F41.9 Anxiety disorder, unspecified; F19.24 Other psychoactive substance dependence with psychoactive substance-induced mood disorder; F32.9 Major depressive disorder, single episode, unspecified; I45.19 Other right bundle-branch block; B18.2 Chronic viral hepatitis C; R26.2 Difficulty in walking, not elsewhere classified; Z99.89 Dependence on other enabling machines and devices; Z87.42 Personal history of other diseases of the female genital tract; Z98.1 Arthrodesis status
CPT/HCPCS: 36415; 80053; 81003; 81015; 85027; 86593; 86780; 93005; 93010

== ENCOUNTER 2016-08-11 10:51 | Inpatient (IN) | payer BC, OTHER ==
[2016-08-11] MEDS ORDERED: guaiFENesin/D-METHORPHAN HB 10 ML UNIT-DOSE CUPS PO PRN (11:40)
[2016-08-11] MEDS ORDERED: MAG HYDROX/AL HYDROX/SIMETH 30 ML UNIT-DOSE CUP PO PRN (11:40)
[2016-08-11] MEDS ORDERED: diphenhydrAMINE HCL 50 MG CAPSULE PO PRN (11:40)
[2016-08-11] MEDS ORDERED: LOPERAMIDE HCL 2 MG CAPSULE PO PRN (11:40)
[2016-08-11] MEDS ORDERED: P-EPHED 60MG/TRIPROLIDI 2.5MG TABLET PO PRN (11:40)
[2016-08-11] MEDS ORDERED: ACETAMINOPHEN 325 MG TABLET (FP) PO PRN (11:40)
[2016-08-11] MEDS ORDERED: IBUPROFEN 400 MG TABLET (FP) PO PRN (11:40)
[2016-08-11] MEDS ORDERED: MAGNESIUM CITRATE 300 ML BOTTLE PO PRN (11:40)
[2016-08-11] MEDS ORDERED: MAGNESIUM HYDROX 2400MG/30ML ORAL SUSPENSION 30 ML CUP PO PRN (11:40)
[2016-08-11] MEDS ORDERED: MENTHOL/PHENOL 1 EACH UD MM PRN (11:40)
--- NOTE | 2016-08-11 11:49 | HP ---
[facility] Re[facility] Assess/Revision - Admission History Admitted to Rehab from: [facility] Date of Admission to Rehab: 08/11/16 - Vital signs Vital Signs: Vital Signs Period Temp Pulse Resp BP Sys/Bowers Pulse Ox Last 24 Hr 97.7 F 84 18 95/64 - Findings Detox History & Physical reviewed: Yes Concur with findings: Yes Comments/Additional Findings: for rehab as protocol
[2016-08-11 12:01] VITALS: BMI 23.8
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
[2016-08-11] MEDS: THIAMINE HCL 100 MG TABLET (FP) PO SCH (21:13)
[2016-08-11] MEDS: GABAPENTIN 300 MG CAPSULE (FP) PO SCH (21:13)
[2016-08-11] MEDS: hydrOXYzine PAMOATE 50 MG CAPSULE (FP) PO PRN (21:14)
[2016-08-11] MEDS ORDERED: GABAPENTIN 300 MG CAPSULE (FP) PO SCH (22:00)
[2016-08-12] MEDS: hydrOXYzine PAMOATE 50 MG CAPSULE (FP) PO PRN ×4 (06:17→21:22)
[2016-08-12] MEDS ORDERED: SULFAMETHOXAZOLE/TRIMETHOPRIM 800MG/160MG D.S. TABLET PO SCH (10:00)
[2016-08-12] MEDS: valACYclovir HCL 500 MG TABLET (FP) PO SCH (10:12)
[2016-08-12] MEDS: NICOTINE 21 MG/24 HOURS TOPICAL PATCH TD SCH (10:12)
[2016-08-12] MEDS: PRENATAL VITAMINS W/ FOLIC ACID TABLET (FP) PO SCH (10:12)
[2016-08-12] MEDS: GABAPENTIN 300 MG CAPSULE (FP) PO SCH ×2 (15:31→21:21)
[2016-08-12] MEDS: SULFAMETHOXAZOLE/TRIMETHOPRIM 800MG/160MG D.S. TABLET PO SCH (21:21)
[2016-08-12] MEDS: THIAMINE HCL 100 MG TABLET (FP) PO SCH (21:22)
[2016-08-13] MEDS: hydrOXYzine PAMOATE 50 MG CAPSULE (FP) PO PRN ×2 (06:13→10:14)
[2016-08-13 06:46] VITALS: BP 93/65; PULSE 116; TEMP 97.6
[2016-08-13] MEDS: NICOTINE 21 MG/24 HOURS TOPICAL PATCH TD SCH (10:10)
[2016-08-13] MEDS: valACYclovir HCL 500 MG TABLET (FP) PO SCH (10:11)
[2016-08-13] MEDS: GABAPENTIN 300 MG CAPSULE (FP) PO SCH (10:11)
[2016-08-13] MEDS: SULFAMETHOXAZOLE/TRIMETHOPRIM 800MG/160MG D.S. TABLET PO SCH (10:12)
[2016-08-13] MEDS: PRENATAL VITAMINS W/ FOLIC ACID TABLET (FP) PO SCH (10:12)
[2016-08-13] MEDS ORDERED: PT OWN MED DRAWER 7, Y5N ONE (10:13)
--- NOTE | 2016-08-13 11:25 | PN ---
Psychiatric Progress Note Vital Signs: Vital Signs Period Temp Pulse Resp BP Sys/Bowers Pulse Ox Last 24 Hr 97.6 F 103-116 16-16 93-102/65-70 Date of Session: 08/13/16 Chief Complaint:: Discharge visit HPI: Patient addressed Opioid,Cocaine and Alcohol dependence comorbid with Substance induced mood disorder. Current Medications: Active Medications Generic Name Dose Route Start Last Admin Trade Name Freq PRN Reason Stop Dose Admin Acetaminophen 650 mg 08/11/16 11:40 Tylenol - PO Q4H PRN FEVER OR PAIN Al Hydroxide/Mg Hydroxide 30 ml 08/11/16 11:40 08/12/16 15:31 Mylanta Oral Suspension - PO 30 ml Q6H PRN Administration DYSPEPSIA Bupropion HCl 300 mg 08/12/16 10:00 08/13/16 10:13 Wellbutrin Xl - PO 300 mg DAILY NATALIE Administration Diphenhydramine HCl 50 mg 08/11/16 11:40 Benadryl - PO HSMR1 PRN FOR ITCHING Eucalyptus/Menthol/Phenol/Sorbitol 1 each 08/11/16 11:40 Cepastat Lozenge - MM Q4H PRN SORE THROAT Gabapentin 900 mg 08/11/16 22:00 08/12/16 21:21 Neurontin - PO 900 mg HS NATALIE Administration Gabapentin 300 mg 08/12/16 15:15 08/13/16 10:11 Neurontin - PO 300 mg DAILY NATALIE Administration Guaifenesin 10 ml 08/11/16 11:40 Robitussin Dm - PO Q6H PRN COUGH Hydroxyzine Pamoate 50 mg 08/11/16 11:40 08/13/16 10:14 Vistaril - PO 50 mg Q4H PRN Administration AGITATION Ibuprofen 400 mg 08/11/16 11:40 Motrin - PO Q6H PRN PAIN Loperamide HCl 4 mg 08/11/16 11:40 Imodium - PO Q6H PRN DIARRHEA Magnesium Citrate 300 ml 08/11/16 11:40 Citroma - PO 08/13/16 11:41 Q48H PRN CONSTIPATION Magnesium Hydroxide 30 ml 08/11/16 11:40 Milk Of Magnesia - PO DAILY PRN CONSTIPATION Nicotine 21 mg 08/12/16 10:00 08/13/16 10:10 Nicoderm Patch - TD 21 mg DAILY NATALIE Administration Multivit/Folic Acid/Iron 1 tab 08/12/16 10:00 08/13/16 10:12 Vitamins (Sjr) - PO 1 tab DAILY NATALIE Administration Pseudoephedrine/Triprolidine 1 combo 08/11/16 11:40 Actifed - PO TID PRN NASAL CONGESTION Thiamine HCl 100 mg 08/11/16 22:00 08/12/16 21:22 Vitamin B1 - PO 100 mg HS NATALIE Administration Trimethoprim/Sulfamethoxazole 1 each 08/12/16 22:00 08/13/16 10:12 Bactrim Ds - PO 1 each BID NATALIE Administration Valacyclovir HCl 500 mg 08/12/16 10:00 08/13/16 10:11 Valtrex - PO 08/18/16 09:59 500 mg DAILY NATALIE Administration Current Side Effect: No Lab tests ordered: No Lab tests reviewed: Yes Provider note:: Patient was seen today .She decided to sign out since last night ,making various complaints and making multiple excuses for not staying in treatment.She was seen by and Neurontin ajustment mina been made,but patient still is not willing to continue her treatment .Multiple efforts has been made by entry writer and other staff members to convince patient continue further stabiliztion,but she ignored our recommendations and left AMA. Patient will continue to address her issues on outpatient basis.She will continue to take medications as per plan.Scripts for 30 days provided. Total face to face time:: 35 Mental Status Exam - Mental Status Exam Cognitive Function: Grossly Intact Patient Appearance: Unkempt Mood: Anxious, Irritable Affect: Labile Patient Behavior: Resitive to Care Speech Pattern: Clear Voice Loudness: Normal Thought Process: Goal Oriented Thought Disorder: Not Present Hallucinations: Denies Suicidal Ideation: Denies Homicidal Ideation: Denies Insight/Judgement: Fair Sleep: Fair Appetite: Fair Muscle strength/Tone: Normal Gait/Station: Normal Psychiatric Treatment Plan - Problem List (1) Drug-induced mood disorder Current Visit: Yes (2) Opioid dependence with withdrawal Current Visit: Yes (3) Alcohol dependence with uncomplicated withdrawal Current Visit: Yes (4) Cocaine dependence, uncomplicated Current Visit: Yes (5) Nicotine dependence Current Visit: Yes Qualifiers:
== END 2016-08-13 11:19 | disposition left against medical advice (07) | DRG 894 ==
LOC: YASAS 10:51 → Y3E 10:55
PROVIDERS: ADMIT Psychiatry & Neurology Psychiatry; ATTEND Psychiatry & Neurology Psychiatry
PROC: HZ42ZZZ Group Counseling for Substance Abuse Treatment, Cognitive-Behavioral (ICD-10-PCS; principal; 2016-08-11)
DX: F11.20 Opioid dependence, uncomplicated (principal); F14.20 Cocaine dependence, uncomplicated; F10.20 Alcohol dependence, uncomplicated; F17.210 Nicotine dependence, cigarettes, uncomplicated; F19.24 Other psychoactive substance dependence with psychoactive substance-induced mood disorder

== ENCOUNTER 2017-04-04 14:21 | Inpatient (IN) | payer BC, OTHER ==
[2017-04-04 17:25] VITALS: BMI 21.6
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
[2017-04-04] MEDS ORDERED: MAGNESIUM CITRATE 300 ML BOTTLE PO PRN (19:49)
[2017-04-04] MEDS ORDERED: MAG HYDROX/AL HYDROX/SIMETH 30 ML UNIT-DOSE CUP PO PRN (19:49)
[2017-04-04] MEDS ORDERED: P-EPHED 60MG/TRIPROLIDI 2.5MG TABLET PO PRN (19:49)
[2017-04-04] MEDS ORDERED: NICOTINE POLACRILEX 4 MG GUM BC PRN (19:49)
[2017-04-04] MEDS ORDERED: MAGNESIUM HYDROX 2400MG/30ML ORAL SUSPENSION 30 ML CUP PO PRN (19:49)
[2017-04-04] MEDS ORDERED: guaiFENesin/D-METHORPHAN HB 10 ML UNIT-DOSE CUPS PO PRN (19:49)
[2017-04-04] MEDS ORDERED: ACETAMINOPHEN 325 MG TABLET (FP) PO PRN (19:49)
[2017-04-04] MEDS ORDERED: MENTHOL/PHENOL 1 EACH UD MM PRN (19:49)
[2017-04-04] MEDS ORDERED: METHADONE HCL 10 MG TABLET (FOR DETOX USE ONLY) PO ONE ×2 (19:49→23:00)
[2017-04-04] MEDS ORDERED: diazePAM 5 MG TABLET PO ONE (19:49)
[2017-04-04] MEDS ORDERED: LOPERAMIDE HCL 2 MG CAPSULE PO PRN (19:49)
[2017-04-04] MEDS: diazePAM 5 MG TABLET PO SCH (22:27)
[2017-04-04] MEDS: GABAPENTIN 300 MG CAPSULE (FP) PO SCH (22:27)
[2017-04-04] MEDS: METHOCARBAMOL 500 MG TABLET PO PRN (22:27)
[2017-04-04] MEDS: THIAMINE HCL 100 MG TABLET (FP) PO SCH (22:27)
[2017-04-05] MEDS: GABAPENTIN 300 MG CAPSULE (FP) PO SCH ×3 (05:09→22:15)
[2017-04-05] MEDS: diazePAM 5 MG TABLET PO SCH ×3 (05:09→22:15)
[2017-04-05] MEDS ORDERED: METHADONE HCL 10 MG TABLET (FOR DETOX USE ONLY) PO SCH (10:00)
[2017-04-05 10:08] LABS: HEMATOCRIT 36.2 % (32.4-45.2); HEMOGLOBIN 11.8 GM/dL (10.7-15.3); MCH 27.2 pg (25.7-33.7); MCHC 32.6 g/dl (32.0-36.0); MEAN CELL VOLUME 83.4 fl (80-96); MEAN PLT VOLUME 7.9 fl (7.5-11.1); PLATELET COUNT 183 K/MM3 (134-434); RBC 4.34 M/mm3 (3.60-5.2); RDW 14.7 % (11.6-15.6); WHITE BLOOD COUNT 6.8 K/mm3 (4.0-10.0)
[2017-04-05 10:09] LABS: ALBUMIN 3.3 g/dl (3.4-5.0); ANION GAP 7 (8-16); BLOOD UREA NITROGEN 9 mg/dL (7-18); CHLORIDE 107 mmol/L (98-107); CO2 27 mmol/L (21-32); GLUCOSE,RANDOM 82 mg/dL (74-106); POTASSIUM 3.6 mmol/L (3.5-5.1); SGOT/AST 17 U/L (15-37); SGPT/ALT 20 U/L (12-78); SODIUM 141 mmol/L (136-145)
[2017-04-05 10:10] LABS: ALK PHOS 82 U/L (45-117); BILIRUBIN,TOTAL 0.4 mg/dL (0.2-1.0); CALCIUM 8.6 mg/dL (8.5-10.1); CREATININE 0.6 mg/dL (0.55-1.02); TOT PROT 6.5 g/dl (6.4-8.2)
[2017-04-05] MEDS: NICOTINE 21 MG/24 HOURS TOPICAL PATCH TD SCH (10:14)
[2017-04-05] MEDS: PRENATAL VITAMINS W/ FOLIC ACID TABLET (FP) PO SCH (10:14)
--- NOTE | 2017-04-05 10:30 | CONSULT ---
[facility] Psychiatric Consult - Data Date of interview: 04/05/17 Admission source: [facility] Identifying data: Pt. is a 52 year old female,mother of two, and on disability. This is one of multiple admissions for patient. Pt. admitted to for alcohol, heroin, cocaine, and benzodiazepine dependence. Substance Abuse History: Following information confirmed with Ms. Choudhary: - Smoking Cessation. Smoking history: Current every day smoker. Have you smoked in the past 12 months: Yes. Aproximately how many cigarettes per day: 20. Cigars Per Day: 0. Hx Chewing Tobacco Use: No. Initiated information on smoking cessation: Yes. 'Breaking Loose' booklet given: 04/04/17. - Substance & Tx. History. Hx Alcohol Use: Yes. Hx Substance Use: Yes. Substance Use Type : Alcohol, Cocaine, Heroin, Tranquilizers. Hx Substance Use Treatment: Yes ( 2016 [facility]). - Substances Abused. Alcohol. Route: Oral. Frequency: Daily. Amount used: fifth vodka. Age of first use: 12. Date of Last Use: . Heroin. Route: Injection. Frequency: Daily. Amount used: 20 bags. Age of first use: 17. Date of Last Use: 04/03/17. Cocaine. Route: Injection. Frequency: Daily. Amount used: 100$. Age of first use: 17. Date of Last Use: 04/03/17. Alprazolam (Xanax). Route: Oral. Frequency: Daily. Amount used: 2 mg. Age of first use: 46. Date of Last Use: 04/03/17 Medical History: Herpes, Hep C (treated), spinal fusion 2003, Neck surgery 2011. Psychiatric History: Pt. denies h/o psychiatric hospitalizations and suicide attempts. Reports currently seeing a psychiatrist by the name of Dr. Dixon in [place]. States she is prescribed wellbutrin 300mg Xl and reports last taking it two days ago. Pharmacy claims reviewed. Pt. reports a diagnosis of MDD and anxiety. Physical/Sexual Abuse/Trauma History: Denies. Mental Status Exam - Mental Status Exam Alert and Oriented to: Time, Place, Person Cognitive Function: Good Patient Appearance: Unkempt Mood: Euthymic Affect: Mood Congruent Patient Behavior: Appropriate, Cooperative Speech Pattern: Clear, Appropriate Voice Loudness: Normal Thought Process: Goal Oriented Thought Disorder: Not Present Hallucinations: Denies Suicidal Ideation: Denies Homicidal Ideation: Denies Insight/Judgement: Poor Sleep: Poorly Appetite: Fair Muscle strength/Tone: Normal Gait/Station: Normal Psychiatric Findings - Problem List ([place] 1, 2,3) (1) Alcohol dependence with uncomplicated withdrawal Current Visit: Yes Status: Acute (2) Nicotine dependence Current Visit: Yes Status: Chronic Qualifiers: Nicotine product type: cigarettes Substance use status: in withdrawal Qualified Code(s): F17.213 - Nicotine dependence, cigarettes, with withdrawal (3) Opioid dependence with withdrawal Current Visit: Yes Status: Acute (4) Sedative, hypnotic or anxiolytic dependence with withdrawal, uncomplicated Current Visit: Yes Status: Acute (5) Cocaine dependence, uncomplicated Current Visit: Yes Status: Acute (6) MDD (major depressive disorder) Current Visit: Yes Status: Chronic Comment: Self reports. - Initial Treatment Plan Initial Treatment Plan: Psychoeducation provided. Detoxification provided. Wellbutrin 300mg Xl ordered PO daily. Benefits and side effects discussed. Verbal consent given. Will continue to monitor.
[2017-04-05] MEDS ORDERED: METHADONE HCL 10 MG TABLET PO ONE (10:53)
[2017-04-05] MEDS ORDERED: METHADONE HCL 40 MG DISPERSABLE TABLET PO ONE (10:53)
--- NOTE | 2017-04-05 10:55 | EKG ---
Test Reason : Blood Pressure : / mmHG Vent. Rate : 068 BPM Atrial Rate : 068 BPM P-R Int : 166 ms QRS Dur : 098 ms QT Int : 440 ms P-R-T Axes : 021 012 020 degrees QTc Int : 467 ms NORMAL SINUS RHYTHM INCOMPLETE RIGHT BUNDLE BRANCH BLOCK BORDERLINE ECG WHEN COMPARED WITH ECG OF 09-AUG-2016 21:52, PREVIOUS ECG HAS UNDETERMINED RHYTHM, NEEDS REVIEW CRITERIA FOR LATERAL INFARCT ARE NO LONGER PRESENT NONSPECIFIC T WAVE ABNORMALITY NO LONGER EVIDENT IN LATERAL LEADS Confirmed by MD Ad, Zechariah ([id number]) on 04/05/2017 10:55:03 AM Referred By: Alok Hernandez Confirmed By:Zechariah Duong MD
--- NOTE | 2017-04-05 11:37 | PN ---
[facility] CIWA - CIWA Score Nausea/Vomitin-Mild Nausea/No Vomiting Muscle Tremors: 4-Moderate,w/Arms Extend Anxiety: 4-Mod. Anxious/Guarded Agitation: 0-Normal Activity Paroxysmal Sweats: 3 Orientation: 0-Oriented Tacttile Disturbances: 1-Very Mild Itch/Numbness Auditory Disturbances: 0-None Visual Disturbances: 0-None Headache: 1-Very Mild CIWA-Ar Total Score: 14 S Progress Note (SOAP) Subjective: Interrupted sleep, sweats, chills, body aches Objective: 04/05/17 11:36 Last Vital Signs Temp Pulse Resp BP Pulse Ox 97.3 F L 75 20 113/79 04/05/17 10:12 04/05/17 10:12 04/05/17 10:12 04/05/17 10:12 Laboratory Last Values WBC 6.8 K/mm3 (4.0-10.0) 04/05/17 07:00 RBC 4.34 M/mm3 (3.60-5.2) 04/05/17 07:00 Hgb 11.8 GM/dL (10.7-15.3) 04/05/17 07:00 Hct 36.2 % (32.4-45.2) 04/05/17 07:00 MCV 83.4 fl (80-96) 04/05/17 07:00 MCH 27.2 pg (25.7-33.7) 04/05/17 07:00 MCHC 32.6 g/dl (32.0-36.0) 04/05/17 07:00 RDW 14.7 % (11.6-15.6) D 04/05/17 07:00 Plt Count 183 K/MM3 (134-434) 04/05/17 07:00 MPV 7.9 fl (7.5-11.1) D 04/05/17 07:00 Sodium 141 mmol/L (136-145) 04/05/17 07:00 Potassium 3.6 mmol/L (3.5-5.1) 04/05/17 07:00 Chloride 107 mmol/L (98-107) 04/05/17 07:00 Carbon Dioxide 27 mmol/L (21-32) 04/05/17 07:00 Anion Gap 7 (8-16) L 04/05/17 07:00 BUN 9 mg/dL (7-18) 04/05/17 07:00 Creatinine 0.6 mg/dL (0.55-1.02) 04/05/17 07:00 Creat Clearance w eGFR > 60 (>60) 04/05/17 07:00 Random Glucose 82 mg/dL (74-106) 04/05/17 07:00 Calcium 8.6 mg/dL (8.5-10.1) 04/05/17 07:00 Total Bilirubin 0.4 mg/dL (0.2-1.0) 04/05/17 07:00 AST 17 U/L (15-37) 04/05/17 07:00 ALT 20 U/L (12-78) 04/05/17 07:00 Alkaline Phosphatase 82 U/L (45-117) 04/05/17 07:00 Total Protein 6.5 g/dl (6.4-8.2) 04/05/17 07:00 Albumin 3.3 g/dl (3.4-5.0) L 04/05/17 07:00 labs noted Assessment: 04/05/17 11:37 withdrawal symptoms Plan: Continue detox Increase fluids Continue to monitor
[2017-04-05 13:53] LABS: URINE APPEARANCE SLCLOUDY; URINE BILIRUBIN NEGATIVE (NEGATIVE); URINE BLOOD NEGATIVE (NEGATIVE); URINE COLOR YELLOW; URINE GLUCOSE (UA) NEGATIVE (NEGATIVE); URINE KETONE NEGATIVE (NEGATIVE); URINE LEUK ESTERASE TRACE (NEGATIVE); URINE NITRITE NEGATIVE (NEGATIVE); URINE PROTEIN NEGATIVE (NEGATIVE); URINE UROBILINOGEN 4.0 E.U/dl mg/dL (0.2-1.0)
[2017-04-05 14:12] LABS: RPR REACTIVE 1:1 (NONREACTIVE)
[2017-04-05 14:13] LABS: TREPONEMA ANTIBODY PREVIOUSLY REACTIVE (NONREACTIVE)
[2017-04-05 14:36] LABS: EPI CELLS MODERATE /HPF (FEW); URINE MUCUS FEW
[2017-04-05] MEDS: THIAMINE HCL 100 MG TABLET (FP) PO SCH (22:15)
[2017-04-06] MEDS: diazePAM 5 MG TABLET PO PRN ×3 (03:30→17:25)
[2017-04-06] MEDS ORDERED: METHADONE HCL 10 MG TABLET ONE (04:39)
[2017-04-06] MEDS ORDERED: METHADONE HCL 40 MG DISPERSABLE TABLET ONE (04:39)
[2017-04-06] MEDS: GABAPENTIN 300 MG CAPSULE (FP) PO SCH ×3 (05:22→23:56)
[2017-04-06] MEDS ORDERED: METHADONE HCL 10 MG TABLET PO ONE (06:00)
[2017-04-06] MEDS ORDERED: METHADONE 40 MG, METHADONE 30 MG PO ONE (06:00)
[2017-04-06] MEDS: IBUPROFEN 400 MG TABLET (FP) PO PRN ×2 (06:04→20:09)
[2017-04-06] MEDS ORDERED: METHADONE HCL 5 MG TABLET (FOR DETOX USE ONLY) PO SCH (10:00)
[2017-04-06] MEDS: PRENATAL VITAMINS W/ FOLIC ACID TABLET (FP) PO SCH (10:14)
[2017-04-06] MEDS: METHOCARBAMOL 500 MG TABLET PO PRN ×2 (10:14→20:09)
--- NOTE | 2017-04-06 10:14 | PN ---
S CIWA - CIWA Score Nausea/Vomitin Muscle Tremors: 2 Anxiety: 2 Agitation: 2 Paroxysmal Sweats: 3 Orientation: 0-Oriented Tacttile Disturbances: 1-Very Mild Itch/Numbness Auditory Disturbances: 0-None Visual Disturbances: 0-None Headache: 0-None Present CIWA-Ar Total Score: 12 S Progress Note (SOAP) Subjective: interrupted sleep, sweats Objective: 04/06/17 10:11 Vital Signs Temperature 97.9 F 04/06/17 07:04 Pulse Rate 59 L 04/06/17 07:04 Respiratory Rate 20 04/06/17 07:04 Blood Pressure 105/65 04/06/17 07:04 O2 Sat by Pulse Oximetry (%) Vital Signs Temperature 97.9 F 04/06/17 07:04 Pulse Rate 59 L 04/06/17 07:04 Respiratory Rate 20 04/06/17 07:04 Blood Pressure 105/65 04/06/17 07:04 O2 Sat by Pulse Oximetry (%) Laboratory Tests 04/05/17 04/05/17 04/05/17 07:00 07:00 07:00 WBC 6.8 RBC 4.34 Hgb 11.8 Hct 36.2 MCV 83.4 MCH 27.2 MCHC 32.6 RDW 14.7 D Plt Count 183 MPV 7.9 D Sodium 141 Potassium 3.6 Chloride 107 Carbon Dioxide 27 Anion Gap 7 L BUN 9 Creatinine 0.6 Creat Clearance w eGFR > 60 Random Glucose 82 Calcium 8.6 Total Bilirubin 0.4 AST 17 ALT 20 Alkaline Phosphatase 82 Total Protein 6.5 Albumin 3.3 L Urine Color Urine Appearance Urine pH Ur Specific [place] Urine Protein Urine Glucose (UA) Urine Ketones Urine Blood Urine Nitrite Urine Bilirubin Urine Urobilinogen Ur Leukocyte Esterase Urine WBC (Auto) Urine RBC (Auto) Ur Epithelial Cells Urine Mucus RPR Titer Reactive 1:1 H T.pallidum Ab (MHA) Previously reactive 04/05/17 10:00 WBC RBC Hgb Hct MCV MCH MCHC RDW Plt Count MPV Sodium Potassium Chloride Carbon Dioxide Anion Gap BUN Creatinine Creat Clearance w eGFR Random Glucose Calcium Total Bilirubin AST ALT Alkaline Phosphatase Total Protein Albumin Urine Color Yellow Urine Appearance Slcloudy Urine pH 6.0 D Ur Specific [place] 1.017 Urine Protein Negative Urine Glucose (UA) Negative Urine Ketones Negative Urine Blood Negative Urine Nitrite Negative Urine Bilirubin Negative Urine Urobilinogen 4.0 e.u/dl H Ur Leukocyte Esterase Trace Urine WBC (Auto) 6 Urine RBC (Auto) 1 Ur Epithelial Cells Moderate Urine Mucus Few RPR Titer T.pallidum Ab (A) pt aox3 in nad ambulating OD lat eyebrow abrasion Assessment: 04/06/17 10:12 withdrawal sx's OD eyebrow abrasion Plan: cont detox increase fluids bacitracin oint reinstate maintaince methadone
[2017-04-06] MEDS: diazePAM 5 MG TABLET PO SCH ×2 (10:15→22:18)
[2017-04-06] MEDS: BACITRACIN 0.9 GM PACKET TP SCH ×2 (10:17→22:18)
[2017-04-06] MEDS: NICOTINE 21 MG/24 HOURS TOPICAL PATCH TD SCH (11:36)
[2017-04-06] MEDS: THIAMINE HCL 100 MG TABLET (FP) PO SCH (23:56)
[2017-04-07] MEDS: diazePAM 5 MG TABLET PO PRN ×4 (01:59→19:21)
[2017-04-07] MEDS: GABAPENTIN 300 MG CAPSULE (FP) PO SCH ×3 (05:21→22:18)
[2017-04-07] MEDS ORDERED: METHADONE HCL 40 MG DISPERSABLE TABLET PO ONE (06:00)
--- NOTE | 2017-04-07 09:05 | PN ---
Psychiatric Progress Note Vital Signs: Vital Signs Period Temp Pulse Resp BP Sys/Bowers Pulse Ox Last 24 Hr 97.5 F-97.9 F 53-69 -18 100-131/58-73 Date of Session: 04/07/17 Chief Complaint:: "I need medications to help me sleep." HPI: Pt. admitted to for alcohol, heroin, cocaine, and benzodiazepine dependence. ROS: Unremarkable. Current Medications: Active Medications Generic Name Dose Route Start Last Admin Trade Name Freq PRN Reason Stop Dose Admin Acetaminophen 650 mg 04/04/17 19:49 Tylenol - PO Q4H PRN FEVER Al Hydroxide/Mg Hydroxide 30 ml 04/04/17 19:49 Mylanta Oral Suspension - PO Q6H PRN DYSPEPSIA Bacitracin 0.9 gm 04/06/17 10:00 04/06/17 22:18 Bacitracin - TP 0.9 gm BID NATALIE Administration Bupropion HCl 300 mg 04/05/17 10:00 04/06/17 10:14 Wellbutrin Xl - PO 300 mg DAILY NATALIE Administration Diazepam 5 mg 04/06/17 10:00 04/06/17 22:18 Valium - PO 04/07/17 22:01 5 mg BID NATALIE Administration Diazepam 5 mg 04/08/17 10:00 Valium - PO 04/08/17 10:01 DAILY NATALIE Diazepam 10 mg 04/04/17 19:49 04/07/17 06:38 Valium - PO 04/07/17 19:50 10 mg Q4H PRN Administration WITHDRAWAL(CONT SUBST) Eucalyptus/Menthol/Phenol/Sorbitol 1 each 04/04/17 19:49 Cepastat Lozenge - MM Q4H PRN SORE THROAT Gabapentin 300 mg 04/04/17 22:00 04/07/17 05:21 Neurontin - PO 300 mg TID NATALIE Administration Guaifenesin 10 ml 04/04/17 19:49 Robitussin Dm - PO Q6H PRN COUGH Ibuprofen 400 mg 04/04/17 19:49 04/06/17 20:09 Motrin - PO 400 mg Q6H PRN Administration PAIN LEVEL 4-6 Loperamide HCl 4 mg 04/04/17 19:49 Imodium - PO Q6H PRN DIARRHEA Magnesium Citrate 300 ml 04/04/17 19:49 Citroma - PO Q48H PRN CONSTIPATION Magnesium Hydroxide 30 ml 04/04/17 19:49 Milk Of Magnesia - PO DAILY PRN CONSTIPATION Methadone HCl 80 mg/ Methadone 90 mg 04/08/17 06:00 HCl 10 mg PO 04/08/17 06:01 DAILY@0600 NATALIE Methocarbamol 500 mg 04/04/17 20:00 04/06/17 20:09 Robaxin - PO 500 mg Q8H PRN Administration BACK PAIN Nicotine 21 mg 04/05/17 10:00 04/06/17 11:36 Nicoderm Patch - TD 21 mg DAILY NATALIE Administration Nicotine Polacrilex 4 mg 04/04/17 19:49 Nicorette Gum - BC Q2H PRN NICOTINE REPLACEMENT RX Multivit/Folic Acid/Iron 1 tab 04/05/17 10:00 04/06/17 10:14 Vitamins (Sjr) - PO 1 tab DAILY NATALIE Administration Pseudoephedrine/Triprolidine 1 combo 04/04/17 19:49 Actifed - PO TID PRN NASAL CONGESTION Thiamine HCl 100 mg 04/04/17 22:00 04/06/17 23:56 Vitamin B1 - PO 100 mg HS NATALIE Administration Medication(s) Change(s): Yes. Seroquel 50mg added for insomnia. Current Side Effect: No Lab tests ordered: No Lab tests reviewed: Yes Provider note:: Stock Order Lister approached patient concerning psychatric reconsultation. Pt. c/o insomnia. Stated to underwriter that she has been awake throughout the night and woud like a sleep aid. Pt. given multiple options of benadryl, trazodone, ambien and seroquel. Pt. stated seroquel has been the most effective sleep aid for her. Reports previously taking it at a rehab in [place] 6 months ago. Psychoeducation and sleep hygiene provided. Seroquel 50mg qhs ordered for insomnia. Pt. receptive and satisified with feedback. Total face to face time:: 25 Mental Status Exam - Mental Status Exam Alert and Oriented to: Time, Place, Person Cognitive Function: Good Patient Appearance: Well Groomed Mood: Hopeful Affect: Mood Congruent Patient Behavior: Fatigued (Reports insomnia. ) Speech Pattern: Appropriate Voice Loudness: Normal Thought Process: Goal Oriented Thought Disorder: Not Present Hallucinations: Denies Suicidal Ideation: Denies Homicidal Ideation: Denies Insight/Judgement: Poor Sleep: Fair Appetite: Fair Muscle strength/Tone: Normal Gait/Station: Normal Psychiatric Treatment Plan - Problem List (1) Alcohol dependence with uncomplicated withdrawal Current Visit: Yes (2) Nicotine dependence Current Visit: Yes Qualifiers: Nicotine product type: cigarettes Substance use status: uncomplicated Qualified Code(s): F17.210 - Nicotine dependence, cigarettes, uncomplicated (3) Opioid dependence with withdrawal Current Visit: Yes (4) Sedative, hypnotic or anxiolytic dependence with withdrawal, uncomplicated Current Visit: Yes (5) Cocaine dependence, uncomplicated Current Visit: Yes (6) MDD (major depressive disorder) Current Visit: Yes Comment: Self reports. (7) Insomnia Current Visit: Yes
[2017-04-07] MEDS: PRENATAL VITAMINS W/ FOLIC ACID TABLET (FP) PO SCH (10:13)
[2017-04-07] MEDS: BACITRACIN 0.9 GM PACKET TP SCH ×2 (10:14→22:18)
[2017-04-07] MEDS: NICOTINE 21 MG/24 HOURS TOPICAL PATCH TD SCH (10:14)
[2017-04-07] MEDS: diazePAM 5 MG TABLET PO SCH ×3 (10:14→23:21)
--- NOTE | 2017-04-07 10:45 | PN ---
BHS Progress Note (SOAP) Subjective: irritable agitation sweats Objective: 04/07/17 10:44 Vital Signs Temperature 97.7 F 04/07/17 09:17 Pulse Rate 72 04/07/17 09:17 Respiratory Rate 20 04/07/17 09:17 Blood Pressure 113/68 04/07/17 09:17 O2 Sat by Pulse Oximetry (%) aaox3 ambulating no acute distress Assessment: 04/07/17 10:44 withdrawal sx Plan: continue detox increase fluids d/c in am
[2017-04-07] MEDS: IBUPROFEN 400 MG TABLET (FP) PO PRN (11:33)
[2017-04-07] MEDS ORDERED: QUEtiapine FUMARATE 50 MG TABLET PO SCH (22:00)
[2017-04-07] MEDS: THIAMINE HCL 100 MG TABLET (FP) PO SCH (22:18)
[2017-04-08] MEDS ORDERED: METHADONE HCL 10 MG TABLET ONE (04:19)
[2017-04-08] MEDS ORDERED: METHADONE HCL 40 MG DISPERSABLE TABLET ONE (04:19)
[2017-04-08] MEDS ORDERED: METHADONE HCL 10 MG TABLET PO ONE (06:00)
[2017-04-08] MEDS ORDERED: METHADONE 80 MG, METHADONE 10 MG PO SCH (06:00)
[2017-04-08 06:32] VITALS: BP 105/68; PULSE 60; TEMP 97.5
[2017-04-08] MEDS: GABAPENTIN 300 MG CAPSULE (FP) PO SCH (06:39)
[2017-04-08] MEDS: METHOCARBAMOL 500 MG TABLET PO PRN (06:42)
[2017-04-08] MEDS ORDERED: hydrOXYzine PAMOATE 50 MG CAPSULE (FP) PO ONE (06:43)
--- NOTE | 2017-04-08 08:31 | DS ---
[facility] Detox Discharge Summary Admission Date: 04/04/17 Discharge Date: 04/08/17 - History Present History: Alcohol Dependence, Opioid Dependence, Sedative Dependence - Physical Exam Results Vital Signs: Vital Signs Temperature 97.5 F L 04/08/17 06:50 Pulse Rate 60 04/08/17 06:50 Respiratory Rate 18 04/08/17 06:50 Blood Pressure 105/68 04/08/17 06:50 O2 Sat by Pulse Oximetry (%) - Treatment Hospital Course: Detox Protocol Followed, Detoxed Safely, Responded well, Discharged Condition Good - Medication Discharge Medications: Ambulatory Orders Bupropion HCl [Wellbutrin Xl -] 300 mg PO DAILY #30 tab 07/07/16 Gabapentin [Neurontin -] 300 mg PO TID #90 cap MDD 900 07/07/16 Sulfamethoxazole/Trimethoprim [Bactrim Ds Tablet] 1 each PO BID #10 tab Valacyclovir HCl [Valtrex -] 500 mg PO DAILY #14 mg 08/13/16 - Diagnosis (1) Alcohol dependence with uncomplicated withdrawal Current Visit: Yes Status: Chronic (2) Cocaine dependence, uncomplicated Current Visit: Yes Status: Chronic (3) Opioid dependence with withdrawal Current Visit: Yes Status: Chronic (4) Sedative, hypnotic or anxiolytic dependence with withdrawal, uncomplicated Current Visit: Yes Status: Chronic (5) Nicotine dependence Current Visit: Yes Status: Chronic Qualifiers: Nicotine product type: cigarettes Substance use status: uncomplicated Qualified Code(s): F17.210 - Nicotine dependence, cigarettes, uncomplicated (6) Hepatitis C Current Visit: No Status: Resolved Qualifiers: Viral hepatitis chronicity: unspecified Hepatic coma status: without hepatic coma Qualified Code(s): B19.20 - Unspecified viral hepatitis C without hepatic coma - AMA Did Patient Leave Against Medical Advice: No
[2017-04-08] MEDS: BACITRACIN 0.9 GM PACKET TP SCH (09:03)
[2017-04-08] MEDS: PRENATAL VITAMINS W/ FOLIC ACID TABLET (FP) PO SCH (09:03)
[2017-04-08] MEDS ORDERED: METHADONE HCL 10 MG TABLET (FOR DETOX USE ONLY) PO SCH (10:00)
[2017-04-08] MEDS ORDERED: diazePAM 5 MG TABLET PO SCH (10:00)
[2017-04-09] MEDS ORDERED: METHADONE HCL 5 MG TABLET (FOR DETOX USE ONLY) PO SCH (06:00)
== END 2017-04-08 09:26 | disposition home or self-care (01) | DRG 897 ==
LOC: YASAS 14:21 → Y6N 19:41
PROVIDERS: ADMIT Internal Medicine; ATTEND Internal Medicine
PROC: HZ2ZZZZ Detoxification Services for Substance Abuse Treatment (ICD-10-PCS; principal; 2017-04-04)
DX: F11.23 Opioid dependence with withdrawal (principal); F14.20 Cocaine dependence, uncomplicated; F33.9 Major depressive disorder, recurrent, unspecified; F13.230 Sedative, hypnotic or anxiolytic dependence with withdrawal, uncomplicated; F10.230 Alcohol dependence with withdrawal, uncomplicated; F17.210 Nicotine dependence, cigarettes, uncomplicated; B19.20 Unspecified viral hepatitis C without hepatic coma; R76.11 Nonspecific reaction to tuberculin skin test without active tuberculosis; R26.89 Other abnormalities of gait and mobility; Z99.89 Dependence on other enabling machines and devices; Z87.42 Personal history of other diseases of the female genital tract
CPT/HCPCS: 36415; 80053; 81003; 81015; 85027; 86593; 86780; 93005; 93010

== ENCOUNTER 2018-04-25 13:25 | Inpatient (IN) | payer BC, OTHER ==
[2018-04-25 17:16] VITALS: BMI 23.1
--- NOTE | 2018-04-25 18:11 | HP ---
CIWA Score Nausea/Vomitin-Mild Nausea/No Vomiting Muscle Tremors: 2 Anxiety: 4-Mod. Anxious/Guarded Agitation: 4-Moderately Restless Paroxysmal Sweats: 2 Orientation: 1-Uncertain about Date Tacttile Disturbances: 2-Mild Itch/Numbness/Burn Auditory Disturbances: 0-None Visual Disturbances: 0-None Headache: 2-Mild CIWA-Ar Total Score: 18 - Admission Criteria OASAS Guidelines: Admission for Medically Managed Detox: Requires at least one of the followin. CIWA greater than 12 2. Seizures within the past 24 hours 3. Delirium tremens within the past 24 hours 4. Hallucinations within the past 24 hours 5. Acute intervention needed for co occurring medical disorder 6. Acute intervention needed for co occurring psychiatric disorder 7. Severe withdrawal that cannot be handled at a lower level of care (continued vomiting, continued diarrhea, abnormal vital signs) requiring intravenous medication and/or fluids 8. Admission ROS [facility] Chief Complaint: " I want to get off everything and just stay on the MMTP" Allergies/Adverse Reactions: Allergies Allergy/AdvReac Type Severity Reaction Status Date / Time No Known Allergies Allergy Verified 04/25/18 17:33 History of Present Illness: 53 yo female with extensive hx of heroin (IV), crack / cocaine, alcohol and cocaine dependence is here seeking detox. Patient frequent relapse. [facility] , on methadone maintenance of 140 mg, last dose 04/24/17, dose pending verification. PMHX; neuropathy, chronic back pain, depression and anxiety. Denies suicidal / homicidal ideation , denies hx of suicide attempt. Denies hx of seizures or overdose. Others' Prescriptions Patient Name: Nemo Choudhary Date: 1965 Address: [address] [place] [address] Sex: Female Rx Written Rx Dispensed Drug Quantity Days Supply Prescriber Name 03/23/2018 04/23/2018 alprazolam 1 mg tablet 60 30 Daniel Echevarria MD 03/03/2018 03/29/2018 alprazolam 1 mg tablet 60 30 Daniel Echevarria MD 02/21/2018 03/02/2018 alprazolam 1 mg tablet 60 30 Daniel Echevarria MD 02/02/2018 02/03/2018 alprazolam 1 mg tablet 60 30 Echevarria, Daniel Marks MD 01/03/2018 01/05/2018 alprazolam 1 mg tablet 60 30 Echevarria, Daniel Marks MD 12/02/2017 12/03/2017 alprazolam 1 mg tablet 60 30 Echevarria, Daniel Marks MD 10/27/2017 10/28/2017 alprazolam 1 mg tablet 60 30 Echevarria, Daniel Marks MD 09/15/2017 09/28/2017 alprazolam 1 mg tablet 60 30 Echevarria, Daniel Marks MD 08/26/2017 08/26/2017 alprazolam 1 mg tablet 60 30 Echevarria, Daniel Marks MD 07/28/2017 07/28/2017 alprazolam 1 mg tablet 60 30 Echevarria, Daniel Marks MD 06/09/2017 07/03/2017 alprazolam 1 mg tablet 60 30 Echevarria, Daniel Marks MD 06/07/2017 06/09/2017 alprazolam 1 mg tablet 60 30 Echevarria, Daniel Marks MD 05/17/2017 05/18/2017 alprazolam 1 mg tablet 60 30 Echevarria, Daniel Marks MD 04/22/2017 04/27/2017 alprazolam 1 mg tablet 60 30 Echevarria, Daniel Marks MD Exam Limitations: No Limitations - Ebola screening Have you traveled outside of the country in the last 21 days: No Have you had contact with anyone from an Ebola affected area: No Have you been sick,other than usual withdrawal symptoms: No Do you have a fever: No - Review of Systems Constitutional: Chills, Weakness, Unintentional Wgt. Loss, Other (lethargic) EENT: reports: Blurred Vision (uses glasses) Respiratory: reports: No Symptoms reported Cardiac: reports: No Symptoms Reported GI: reports: Constipated, Diarrhea, Poor Appetite, Poor Fluid Intake : reports: Urgency Musculoskeletal: reports: Back Pain, Joint Pain, Neck Pain Integumentary: reports: No Symptoms Reported Neuro: reports: Headache, Numbness, Dizziness Endocrine: reports: Increased Thirst Hematology: reports: No Symptoms Reported Psychiatric: reports: Anxious, Depressed Other Systems: Reviewed and Negative Patient History - Patient Medical History Hx Anemia: No Hx Asthma: No Hx Chronic Obstructive Pulmonary Disease (COPD): No Hx Cancer: No Hx Cardiac Disorders: No Hx Congestive Heart Failure: No Hx Hypertension: No Hx Hypercholesterolemia: No Hx Pacemaker: No HX Cerebrovascular Accident: No Hx Seizures: No Hx Dementia: No Hx Diabetes: No Hx Gastrointestinal Disorders: No Hx Liver Disease: No Hx Genitourinary Disorders: No Hx Sexually Transmitted Disorders: Yes (Pt has a hx of genital herpes.) Hx Renal Disease (ESRD): No Hx Thyroid Disease: No Hx Human Immunodeficiency Virus (HIV): No (negative) Hx Hepatitis C: Yes (treated) Hx Depression: Yes Hx Suicide Attempt: No Hx Bipolar Disorder: No Hx Schizophrenia: No - Patient Surgical History Past Surgical History: Yes Hx Neurologic Surgery: Yes (Fx neck 2011) Hx Cataract Extraction: No Hx Cardiac Surgery: No Hx Lung Surgery: No Hx Breast Surgery: No Hx Breast Biopsy: No Hx Abdominal Surgery: No Hx Appendectomy: No Hx Cholecystectomy: No Hx Genitourinary Surgery: No Hx Section: Yes (1994 2000) Hx Orthopedic Surgery: Yes (2003) Hx Hysterectomy: No Other Surgical History: Spinal fusion in 2003 Anesthesia Reaction: No - PPD History Previous Implant?: Yes (NEG chest x-ray 06/2016) Documented Results: Positive w/o proof Implanted On Prior [facility] Admission?: No PPD to be Administered?: No - Reproductive History Last Menstrual Period: 09/20/11 Patient : No - Smoking Cessation Smoking history: Current every day smoker Have you smoked in the past 12 months: Yes Aproximately how many cigarettes per day: 20 Cigars Per Day: 0 Hx Chewing Tobacco Use: No Initiated information on smoking cessation: Yes 'Breaking Loose' booklet given: 04/25/18 - Substance & Tx. History Hx Alcohol Use: Yes Hx Substance Use: Yes Substance Use Type: Alcohol, Cocaine, Heroin, Opiates, Tranquilizers Hx Substance Use Treatment: Yes ([facility] Mar 2017) - Substances Abused Alcohol Route: Oral Frequency: Daily Amount used: fifth of vodka Age of first use: 11 Date of Last Use: 04/24/18 Cocaine Route: Injection Frequency: Daily Amount used: 1-2 grams Age of first use: 13 Date of Last Use: 04/25/18 Heroin Route: Injection Frequency: Daily Amount used: 10 bags Age of first use: 22 Date of Last Use: 04/24/18 Alprazolam (Xanax) Route: Oral Frequency: Daily Amount used: 1mg Age of first use: 43 Date of Last Use: 04/24/18 Family Disease History - Family Disease History Family Disease History: Heart Disease: Mother (), Other: Father ( /mva), Brother (head trauma), Sister (no sister) Admission Physical Exam [facility] - Vital Signs Vital Signs: Vital Signs - 24 hr 04/25/18 17:14 Temperature 97.9 F Pulse Rate 71 Respiratory 18 Rate Blood Pressure 94/57 L - Physical General Appearance: Yes: Disheveled, Thin, Anxious HEENTM: Yes: EOMI, Hearing grossly Normal, Normal ENT Inspection, Normocephalic , Normal Voice, MONICO, Pharynx Normal, Other (dry mucous membranes) Respiratory: Yes: Chest Non-Tender, Lungs Clear, Normal Breath Sounds, No Respiratory Distress, No Accessory Muscle Use Neck: Yes: Within Normal Limits Breast: Yes: Breast Exam Deferred Cardiology: Yes: Regular Rhythm, Regular Rate Abdominal: Yes: Normal Bowel Sounds, Non Tender, Flat, Soft Genitourinary: Yes: Within Normal Limits Back: Yes: Normal Inspection, Vertebral Tenderness (as per patient is chronic issue follows up with PMD) Musculoskeletal: Yes: full range of Motion, Gait Steady Extremities: Yes: Normal Capillary Refill, Normal Inspection, Normal Range of Motion Neurological: Yes: Within Normal Limits Integumentary: Yes: Normal Color, Dry, Warm Lymphatic: Yes: Within Normal Limits - Diagnostic (1) Chronic back pain greater than 3 months duration Current Visit: Yes Status: Acute (2) Neuropathy Current Visit: Yes Status: Acute (3) Alcohol dependence with uncomplicated withdrawal Current Visit: Yes Status: Acute (4) Cocaine dependence, uncomplicated Current Visit: Yes Status: Chronic (5) Nicotine dependence Current Visit: Yes Status: Chronic Qualifiers: Nicotine product type: cigarettes Substance use status: uncomplicated Qualified Code(s): F17.210 - Nicotine dependence, cigarettes, uncomplicated (6) Positive PPD, treated Current Visit: Yes Status: Resolved (7) Opioid dependence on agonist therapy Current Visit: Yes Status: Acute Comment: on methadone 140 mg, dose pending verification Cleared for Admission [facility] - Detox or Rehab [facility] Level of Care: Medically Managed Detox Regimen/Protocol: Valium [facility] Breath Alcohol Content Breath Alcohol Content: 0 Urine Pregancy Test - Result Urine Test Results: Negative- NO Line Present Urine Drug Screen - Results Drug Screen Negative: No Urine Drug Screen Results: EKATERINA-Cocaine, OPI-Opiates, BZO-Benzodiazepines, MTD- Methadone, FEN-Fentanyl
[2018-04-25] MEDS ORDERED: MAGNESIUM CITRATE 300 ML BOTTLE PO PRN (18:21)
[2018-04-25] MEDS ORDERED: MAGNESIUM HYDROX 2400MG/30ML ORAL SUSPENSION 30 ML CUP PO PRN (18:21)
[2018-04-25] MEDS ORDERED: LOPERAMIDE HCL 2 MG CAPSULE PO PRN (18:21)
[2018-04-25] MEDS ORDERED: hydrOXYzine PAMOATE 50 MG CAPSULE (FP) PO PRN (18:21)
[2018-04-25] MEDS ORDERED: MAG HYDROX/AL HYDROX/SIMETH 30 ML UNIT-DOSE CUP PO PRN (18:21)
[2018-04-25] MEDS ORDERED: NICOTINE POLACRILEX 2 MG GUM BC PRN (18:21)
[2018-04-25] MEDS ORDERED: ACETAMINOPHEN 325 MG TABLET (FP) PO PRN (18:21)
[2018-04-25] MEDS ORDERED: MENTHOL/PHENOL 1 EACH UD MM PRN (18:21)
[2018-04-25] MEDS ORDERED: P-EPHED 60MG/TRIPROLIDI 2.5MG TABLET PO PRN (18:21)
[2018-04-25] MEDS ORDERED: guaiFENesin/D-METHORPHAN HB 10 ML UNIT-DOSE CUPS PO PRN (18:21)
[2018-04-25] MEDS ORDERED: diazePAM 5 MG TABLET PO ONE (19:15)
[2018-04-25] MEDS ORDERED: MELATONIN 5 MG TABLETS PO PRN (22:00)
[2018-04-25] MEDS: diazePAM 5 MG TABLET PO SCH (22:24)
[2018-04-25] MEDS: GABAPENTIN 300 MG CAPSULE (FP) PO SCH (22:24)
[2018-04-25] MEDS: CYCLOBENZAPRINE HCL 5 MG TABLET PO SCH (22:24)
[2018-04-25] MEDS: LIDOCAINE PATCH REMOVAL MC SCH (22:25)
[2018-04-25] MEDS: THIAMINE HCL 100 MG TABLET (FP) PO SCH (22:25)
[2018-04-26] MEDS: CYCLOBENZAPRINE HCL 5 MG TABLET PO SCH ×4 (06:23→22:30)
[2018-04-26] MEDS: diazePAM 5 MG TABLET PO SCH ×3 (06:23→22:27)
[2018-04-26] MEDS: GABAPENTIN 300 MG CAPSULE (FP) PO SCH ×3 (06:23→22:27)
--- NOTE | 2018-04-26 07:42 | CONSULT ---
[facility] Psychiatric Consult - Data Date of interview: 04/26/18 Admission source: [facility] Identifying data: This is a 53 years old female, ambulating with a cane, mother of two, living with famil;y, unemployed, on PA support, with no psychiatric hospitalization history, with long history of Alcohol, Cocaine, Xanax, Opioids nd Nicotine dependence, is reportins withdrawal symptoms and seeking for detox. \ Substance Abuse History: Smoking history: Current every day smoker. Have you smoked in the past 12 months: Yes. Aproximately how many cigarettes per day: 20. Cigars Per Day: 0. Hx Chewing Tobacco Use: No. Initiated information on smoking cessation: Yes. 'Breaking Loose' booklet given: 04/25/18. - Substance & Tx. History. Hx Alcohol Use: Yes. Hx Substance Use: Yes. Substance Use Type : Alcohol, Cocaine, Heroin, Opiates, Tranquilizers. Hx Substance Use Treatment : Yes ([facility] Mar 2017). - Substances Abused. Alcohol. Route: Oral. Frequency: Daily. Amount used: fifth of vodka. Age of first use: 11. Date of Last Use: 04/24/18. Cocaine. Route: Injection. Frequency: Daily. Amount used: 1-2 grams. Age of first use: 13. Date of Last Use: 04/25/18. Heroin. Route: Injection. Frequency: Daily. Amount used: 10 bags. Age of first use: 22. Date of Last Use: 04/24/18. Alprazolam (Xanax). Route: Oral. Frequency: Daily. Amount used: 1mg. Age of first use: 43. Date of Last Use: 04/24/18 Medical History: MMTP 140MG POQD, LBP, Neuropathy, HepC+ history, PPD positive history, Psychiatric History: Patient reports history of MDD and anxiety, reports no psychiatric hospiotalization history, reports no suicidal, homicidal history. Patient reports taking prior to admission: Wellbutrin XR 300mg poqd. Gabapentin 300mg po tidh. Physical/Sexual Abuse/Trauma History: Unclear Additional Comment: Wellbutrin XR 300mg poqd. Gabapentin 300mg po tidh Mental Status Exam - Mental Status Exam Alert and Oriented to: Person Cognitive Function: Fair Patient Appearance: Unkempt Mood: Sad Affect: Mood Congruent Patient Behavior: Cooperative Speech Pattern: Appropriate Voice Loudness: Mildly Soft/Quiet Thought Process: Goal Oriented Thought Disorder: Being Controlled Hallucinations: Denies Suicidal Ideation: Denies Insight/Judgement: Fair Sleep: Difficulty falling asleep Appetite: Weight loss Muscle strength/Tone: Mild Hypotonicity Gait/Station: Deferred Additional Comments: Wellbutrin XR 300mg poqd. Gabapentin 300mg po tidh Psychiatric Findings - Problem List ([place] 1, 2,3) (1) Alcohol dependence with uncomplicated withdrawal Current Visit: Yes Status: Acute (2) Chronic back pain greater than 3 months duration Current Visit: Yes Status: Acute (3) Neuropathy Current Visit: Yes Status: Acute (4) Opioid dependence on agonist therapy Current Visit: Yes Status: Acute Comment: on methadone 140 mg, dose pending verification (5) Cocaine dependence, uncomplicated Current Visit: Yes Status: Chronic (6) Nicotine dependence Current Visit: Yes Status: Chronic Qualifiers: Nicotine product type: cigarettes Substance use status: uncomplicated Qualified Code(s): F17.210 - Nicotine dependence, cigarettes, uncomplicated (7) Hepatitis C Current Visit: Yes Status: Resolved Qualifiers: Viral hepatitis chronicity: unspecified Hepatic coma status: without hepatic coma Qualified Code(s): B19.20 - Unspecified viral hepatitis C without hepatic coma (8) Positive PPD, treated Current Visit: Yes Status: Resolved (9) Insomnia Current Visit: No Status: Acute (10) Drug-induced mood disorder Current Visit: No Status: Chronic (11) Opioid dependence with withdrawal Current Visit: No Status: Chronic (12) Sedative, hypnotic or anxiolytic dependence with withdrawal, uncomplicated Current Visit: No Status: Chronic (13) Use of cane as ambulatory aid Current Visit: No Status: Chronic - Initial Treatment Plan Initial Treatment Plan: Wellbutrin ER 300mg poqd. Gabapentin 300mg po tid
[2018-04-26] MEDS ORDERED: METHADONE HCL 10 MG TABLET PO ONE (08:41)
[2018-04-26] MEDS ORDERED: METHADONE 120 MG, METHADONE 20 MG PO ONE (09:00)
[2018-04-26] MEDS ORDERED: METHADONE HCL 40 MG DISPERSABLE TABLET ONE (09:33)
[2018-04-26] MEDS ORDERED: METHADONE HCL 10 MG TABLET ONE (09:34)
[2018-04-26] MEDS ORDERED: valACYclovir HCL 500 MG TABLET (FP) PO SCH (10:00)
[2018-04-26 10:01] LABS: HEMATOCRIT 31.9 % (32.4-45.2); HEMOGLOBIN 11.1 GM/dL (10.7-15.3); MCH 29.8 pg (25.7-33.7); MCHC 34.7 g/dl (32.0-36.0); MEAN CELL VOLUME 85.9 fl (80-96); MEAN PLT VOLUME 7.8 fl (7.5-11.1); PLATELET COUNT 157 K/MM3 (134-434); RBC 3.71 M/mm3 (3.60-5.2); RDW 14.1 % (11.6-15.6); WHITE BLOOD COUNT 3.7 K/mm3 (4.0-10.0)
--- NOTE | 2018-04-26 10:53 | PN ---
S CIWA - CIWA Score Nausea/Vomitin-No Nausea/No Vomiting Muscle Tremors: 4-Moderate,w/Arms Extend Anxiety: 4-Mod. Anxious/Guarded Agitation: 4-Moderately Restless Paroxysmal Sweats: 4-Forehead w/Sweat Beads Orientation: 0-Oriented Tacttile Disturbances: 0-None Auditory Disturbances: 0-None Visual Disturbances: 0-None Headache: 1-Very Mild CIWA-Ar Total Score: 17 BHS Progress Note (SOAP) Subjective: irritable body aches shakes sweats interrupted sleep agitation Objective: 04/26/18 10:53 Vital Signs Temperature 98.0 F 04/26/18 09:40 Pulse Rate 77 04/26/18 09:40 Respiratory Rate 18 04/26/18 09:40 Blood Pressure 118/74 04/26/18 09:40 O2 Sat by Pulse Oximetry (%) Laboratory Tests 04/26/18 07:00 WBC 3.7 L RBC 3.71 Hgb 11.1 Hct 31.9 L MCV 85.9 MCH 29.8 MCHC 34.7 RDW 14.1 Plt Count 157 MPV 7.8 rest of labs pending aaox3 ambulating no acute distress Assessment: 04/26/18 10:53 withdrawal sx Plan: continue detox increase fluids labs pending
[2018-04-26 10:58] LABS: ALK PHOS 91 U/L (45-117); ANION GAP 5 MMOL/L (8-16); BILIRUBIN,TOTAL 0.2 mg/dL (0.2-1); BLOOD UREA NITROGEN 20 mg/dL (7-18); CHLORIDE 107 mmol/L (98-107); CO2 28 mmol/L (21-32); CREATININE 0.7 mg/dL (0.55-1.3); GLUCOSE,RANDOM 81 mg/dL (74-106); POTASSIUM 4.1 mmol/L (3.5-5.1); SGOT/AST 19 U/L (15-37); SGPT/ALT 23 U/L (13-61); SODIUM 140 mmol/L (136-145); TOT PROT 5.9 g/dl (6.4-8.2)
[2018-04-26] MEDS: NICOTINE 14 MG/24 HOURS TOPICAL PATCH TD SCH (11:00)
[2018-04-26] MEDS: PRENATAL VITAMINS W/ FOLIC ACID TABLET (FP) PO SCH (11:14)
[2018-04-26] MEDS: LIDOCAINE 5% TOPICAL PATCH TP SCH (11:20)
--- NOTE | 2018-04-26 11:42 | EKG ---
Test Reason : Blood Pressure : / mmHG Vent. Rate : 064 BPM Atrial Rate : 064 BPM P-R Int : 158 ms QRS Dur : 088 ms QT Int : 446 ms P-R-T Axes : -11 044 044 degrees QTc Int : 460 ms NORMAL SINUS RHYTHM NORMAL ECG WHEN COMPARED WITH ECG OF 04-APR-2017 22:17, NO SIGNIFICANT CHANGE WAS FOUND Confirmed by BELEM SAUNDERS MD ([id number]) on 04/26/2018 11:41:34 AM Referred By: Confirmed By:BELEM SAUNDERS MD
[2018-04-26] MEDS: diazePAM 5 MG TABLET PO PRN (19:03)
[2018-04-26] MEDS: THIAMINE HCL 100 MG TABLET (FP) PO SCH (22:27)
[2018-04-26] MEDS: IBUPROFEN 400 MG TABLET (FP) PO PRN (22:28)
[2018-04-26] MEDS: LIDOCAINE PATCH REMOVAL MC SCH (22:30)
[2018-04-27] MEDS ORDERED: METHADONE HCL 10 MG TABLET ONE (04:45)
[2018-04-27] MEDS ORDERED: METHADONE HCL 40 MG DISPERSABLE TABLET ONE (04:45)
[2018-04-27] MEDS ORDERED: METHADONE HCL 40 MG DISPERSABLE TABLET PO SCH (06:00)
[2018-04-27] MEDS: METHADONE 120 MG, METHADONE 20 MG PO SCH (06:12)
[2018-04-27] MEDS: CYCLOBENZAPRINE HCL 5 MG TABLET PO SCH ×3 (06:13→22:27)
[2018-04-27] MEDS: GABAPENTIN 300 MG CAPSULE (FP) PO SCH ×3 (06:13→22:27)
[2018-04-27] MEDS: diazePAM 5 MG TABLET PO SCH ×2 (10:37→22:27)
[2018-04-27] MEDS: NICOTINE 14 MG/24 HOURS TOPICAL PATCH TD SCH (10:37)
[2018-04-27] MEDS: valACYclovir HCL 500 MG TABLET (FP) PO SCH (10:37)
[2018-04-27] MEDS: PRENATAL VITAMINS W/ FOLIC ACID TABLET (FP) PO SCH (10:37)
[2018-04-27] MEDS: LIDOCAINE 5% TOPICAL PATCH TP SCH (10:38)
--- NOTE | 2018-04-27 12:38 | PN ---
S CIWA - CIWA Score Nausea/Vomitin-No Nausea/No Vomiting Muscle Tremors: 3 Anxiety: 3 Agitation: 3 Paroxysmal Sweats: 3 Orientation: 0-Oriented Tacttile Disturbances: 0-None Auditory Disturbances: 0-None Visual Disturbances: 0-None Headache: 0-None Present CIWA-Ar Total Score: 12 S Progress Note (SOAP) Subjective: sweats shakes interrupted sleep Objective: 04/27/18 12:37 Vital Signs Temperature 98.1 F 04/27/18 10:31 Pulse Rate 79 04/27/18 10:31 Respiratory Rate 16 04/27/18 10:31 Blood Pressure 105/73 04/27/18 10:31 O2 Sat by Pulse Oximetry (%) Laboratory Tests 04/26/18 04/26/18 07:00 07:00 WBC 3.7 L RBC 3.71 Hgb 11.1 Hct 31.9 L MCV 85.9 MCH 29.8 MCHC 34.7 RDW 14.1 Plt Count 157 MPV 7.8 Sodium 140 Potassium 4.1 Chloride 107 Carbon Dioxide 28 Anion Gap 5 L BUN 20 H Creatinine 0.7 Creat Clearance w eGFR > 60 Random Glucose 81 Calcium 8.0 L Total Bilirubin 0.2 AST 19 ALT 23 Alkaline Phosphatase 91 Total Protein 5.9 L Albumin 3.0 L aaox3 ambulating no acute distress Assessment: 04/27/18 12:38 withdrawal sx Plan: continue detox increase fluids
[2018-04-27 13:16] LABS: RPR REACTIVE 1:1 (NONREACTIVE)
[2018-04-27 13:18] LABS: TREPONEMA ANTIBODY PREVIOUSLY REACTIVE (NONREACTIVE)
[2018-04-27] MEDS: diazePAM 5 MG TABLET PO PRN ×2 (15:28→20:46)
[2018-04-27] MEDS: THIAMINE HCL 100 MG TABLET (FP) PO SCH (22:27)
[2018-04-27] MEDS: IBUPROFEN 400 MG TABLET (FP) PO PRN (22:27)
[2018-04-27] MEDS: LIDOCAINE PATCH REMOVAL MC SCH (23:11)
[2018-04-28] MEDS ORDERED: METHADONE HCL 40 MG DISPERSABLE TABLET ONE (04:43)
[2018-04-28] MEDS ORDERED: METHADONE HCL 10 MG TABLET ONE (04:44)
[2018-04-28] MEDS: METHADONE 120 MG, METHADONE 20 MG PO SCH (05:25)
[2018-04-28] MEDS: CYCLOBENZAPRINE HCL 5 MG TABLET PO SCH ×3 (05:25→22:25)
[2018-04-28] MEDS: GABAPENTIN 300 MG CAPSULE (FP) PO SCH ×3 (05:25→22:26)
[2018-04-28] MEDS: valACYclovir HCL 500 MG TABLET (FP) PO SCH (10:33)
[2018-04-28] MEDS: PRENATAL VITAMINS W/ FOLIC ACID TABLET (FP) PO SCH (10:33)
[2018-04-28] MEDS: NICOTINE 14 MG/24 HOURS TOPICAL PATCH TD SCH (10:34)
[2018-04-28] MEDS: LIDOCAINE 5% TOPICAL PATCH TP SCH (10:34)
[2018-04-28] MEDS: diazePAM 5 MG TABLET PO SCH ×2 (10:34→22:26)
--- NOTE | 2018-04-28 12:20 | PN ---
[facility] Progress Note Note: pt assessed regarding a possible fall. pt states she did not fall, she was reaching out for something on the floor and leaned forward she squatted but states she did not fall. Pt denies of any injury to any part of her body or head. encouraged pt to prevent from falling or injury to please advise staff for assistance. pt in agreement.
--- NOTE | 2018-04-28 12:22 | PN ---
[facility]HS Progress Note (SOAP) Subjective: sweats interrupted sleep Objective: 04/28/18 12:21 Vital Signs Temperature 98.4 F 04/28/18 09:27 Pulse Rate 73 04/28/18 09:27 Respiratory Rate 18 04/28/18 09:27 Blood Pressure 109/71 04/28/18 09:27 O2 Sat by Pulse Oximetry (%) aaox3 ambulating no acute distress Assessment: 04/28/18 12:21 mild withdrawal sx Plan: continue detox cane ordered for ambulating assistance d/c in am
[2018-04-28] MEDS: diazePAM 5 MG TABLET PO PRN (16:47)
[2018-04-28] MEDS: LIDOCAINE PATCH REMOVAL MC SCH (22:25)
[2018-04-28] MEDS: THIAMINE HCL 100 MG TABLET (FP) PO SCH (22:25)
[2018-04-28] MEDS: IBUPROFEN 400 MG TABLET (FP) PO PRN (22:25)
[2018-04-29] MEDS ORDERED: METHADONE HCL 40 MG DISPERSABLE TABLET ONE (04:49)
[2018-04-29] MEDS ORDERED: METHADONE HCL 10 MG TABLET ONE (04:49)
[2018-04-29] MEDS: METHADONE 120 MG, METHADONE 20 MG PO SCH (05:26)
[2018-04-29] MEDS: CYCLOBENZAPRINE HCL 5 MG TABLET PO SCH (05:26)
[2018-04-29] MEDS: GABAPENTIN 300 MG CAPSULE (FP) PO SCH (05:26)
[2018-04-29 06:40] VITALS: BP 100/57; PULSE 68; TEMP 97.9
[2018-04-29] MEDS ORDERED: diazePAM 5 MG TABLET PO SCH (10:00)
--- NOTE | 2018-04-29 17:43 | DS ---
[facility] Discharge Summary Admission Date: 04/25/18 Discharge Date: 04/29/18 - History Additional Comments: pt d/c today s/p completion of detox pt had left unit prior to provider arrival - Physical Exam Results Vital Signs: Vital Signs Temperature 97.9 F 04/29/18 06:00 Pulse Rate 68 04/29/18 06:00 Respiratory Rate 18 04/29/18 06:30 Blood Pressure 100/57 L 04/29/18 06:00 O2 Sat by Pulse Oximetry (%) - Treatment Hospital Course: Detox Protocol Followed, Detoxed Safely, Responded well, Discharged Condition Good - Medication Discharge Medications: Ambulatory Orders Methadone [Dolophine -] 140 mg PO DAILY 04/25/18 Valacyclovir HCl [Valtrex -] 100 mg PO DAILY 04/25/18 Bupropion HCl [Wellbutrin Xl -] 300 mg PO DAILY #30 tab 04/26/18 Gabapentin [Neurontin -] 300 mg PO TID #90 cap MDD 900 04/26/18 - AMA Did Patient Leave Against Medical Advice: No
== END 2018-04-29 09:43 | disposition home or self-care (01) | DRG 897 ==
LOC: YASAS 13:25 → Y6N 19:06
PROVIDERS: ADMIT Surgery; ATTEND Surgery
PROC: HZ2ZZZZ Detoxification Services for Substance Abuse Treatment (ICD-10-PCS; principal; 2018-04-25)
DX: F10.230 Alcohol dependence with withdrawal, uncomplicated (principal); F14.20 Cocaine dependence, uncomplicated; F11.20 Opioid dependence, uncomplicated; F13.230 Sedative, hypnotic or anxiolytic dependence with withdrawal, uncomplicated; F17.210 Nicotine dependence, cigarettes, uncomplicated; F19.24 Other psychoactive substance dependence with psychoactive substance-induced mood disorder; F32.9 Major depressive disorder, single episode, unspecified; G47.00 Insomnia, unspecified; G62.9 Polyneuropathy, unspecified; B19.20 Unspecified viral hepatitis C without hepatic coma; M54.9 Dorsalgia, unspecified; G89.29 Other chronic pain; R76.11 Nonspecific reaction to tuberculin skin test without active tuberculosis; R26.89 Other abnormalities of gait and mobility; Z99.89 Dependence on other enabling machines and devices; Z86.19 Personal history of other infectious and parasitic diseases
CPT/HCPCS: 36415; 71045-TC-FY; 80053; 85027; 86593; 86780; 93005; 93010

== ENCOUNTER 2018-07-04 10:54 | Inpatient (IN) | payer BC, OTHER ==
[2018-07-04 12:33] VITALS: BMI 22.5
--- NOTE | 2018-07-04 14:14 | HP ---
CIWA Score Nausea/Vomitin-No Nausea/No Vomiting Muscle Tremors: 4-Moderate,w/Arms Extend Anxiety: 4-Mod. Anxious/Guarded Agitation: 4-Moderately Restless Paroxysmal Sweats: 3 Orientation: 0-Oriented Tacttile Disturbances: 0-None Auditory Disturbances: 0-None Visual Disturbances: 0-None Headache: 0-None Present CIWA-Ar Total Score: 15 - Admission Criteria OASAS Guidelines: Admission for Medically Managed Detox: Requires at least one of the followin. CIWA greater than 12 2. Seizures within the past 24 hours 3. Delirium tremens within the past 24 hours 4. Hallucinations within the past 24 hours 5. Acute intervention needed for co occurring medical disorder 6. Acute intervention needed for co occurring psychiatric disorder 7. Severe withdrawal that cannot be handled at a lower level of care (continued vomiting, continued diarrhea, abnormal vital signs) requiring intravenous medication and/or fluids 8. Admission ROS S - HPI Chief Complaint: I am here to try again and need to get my life back. Allergies/Adverse Reactions: Allergies Allergy/AdvReac Type Severity Reaction Status Date / Time No Known Allergies Allergy Verified 07/04/18 12:14 History of Present Illness: pt is a 53yr old female with a history of alcohol dependence seeking detox for treatment. Pt is also on a MMTP program getting 140mg of methadone last medicated yesterday. Dose has been verified with [facility] and [facility]. Exam Limitations: No Limitations - Ebola screening Have you traveled outside of the country in the last 21 days: No (N) Have you had contact with anyone from an Ebola affected area: No Have you been sick,other than usual withdrawal symptoms: No Do you have a fever: No - Review of Systems Constitutional: Chills, Diaphoresis, Night Sweats, Changes in sleep EENT: reports: Tearing, Nose Congestion Respiratory: reports: No Symptoms reported Cardiac: reports: No Symptoms Reported GI: reports: Diarrhea, Poor Appetite, Poor Fluid Intake, Indigestion : reports: Urgency Musculoskeletal: reports: Back Pain Integumentary: reports: Flushing, Sweating Neuro: reports: Headache, Tingling, Tremors Endocrine: reports: Excessive Sweating, Flushing, Intolerance to Heat, Increased Hunger Hematology: reports: No Symptoms Reported Psychiatric: reports: Judgement Intact, Orientated x3, Agitated, Anxious Other Systems: Reviewed and Negative Patient History - Patient Medical History Hx Anemia: No Hx Asthma: No Hx Chronic Obstructive Pulmonary Disease (COPD): No Hx Cancer: No Hx Cardiac Disorders: No Hx Congestive Heart Failure: No Hx Hypertension: No Hx Hypercholesterolemia: No Hx Pacemaker: No HX Cerebrovascular Accident: No Hx Seizures: No Hx Dementia: No Hx Diabetes: No Hx Gastrointestinal Disorders: No Hx Liver Disease: No Hx Genitourinary Disorders: No Hx Sexually Transmitted Disorders: Yes (Pt has a hx of genital herpes/ on valtrex) Hx Renal Disease (ESRD): No Hx Thyroid Disease: No Hx Human Immunodeficiency Virus (HIV): No (negative) Hx Hepatitis C: Yes (treated) Hx Depression: Yes Hx Suicide Attempt: No Hx Bipolar Disorder: No Hx Schizophrenia: No - Patient Surgical History Past Surgical History: Yes Hx Neurologic Surgery: Yes (Fx neck 2011) Hx Cataract Extraction: No Hx Cardiac Surgery: No Hx Lung Surgery: No Hx Breast Surgery: No Hx Breast Biopsy: No Hx Abdominal Surgery: No Hx Appendectomy: No Hx Cholecystectomy: No Hx Genitourinary Surgery: No Hx Section: Yes (1994 2000) Hx Orthopedic Surgery: Yes (2003) Hx Hysterectomy: No Other Surgical History: Spinal fusion in 2003 Anesthesia Reaction: No - PPD History Previous Implant?: Yes Documented Results: Positive w/proof Implanted On Prior [facility] Admission?: No Results: -chest x-ray PPD to be Administered?: No - Reproductive History Patient is a Female of Child Bearing Age (11 -55 yrs old): No Last Menstrual Period: 09/20/11 Patient : No - Smoking Cessation Smoking history: Current every day smoker Have you smoked in the past 12 months: Yes Aproximately how many cigarettes per day: 20 Cigars Per Day: 0 Hx Chewing Tobacco Use: No Initiated information on smoking cessation: Yes 'Breaking Loose' booklet given: 07/04/18 - Substance & Tx. History Hx Alcohol Use: Yes Hx Substance Use: Yes Substance Use Type: Alcohol, Heroin Hx Substance Use Treatment: Yes (last detox 04/2018 [facility]) - Substances abused Alcohol Substance route: Oral Frequency: Daily Amount used: 5th of vodka, beer 4 x 16oz Age of first use: 12 Date of last use: 07/03/18 Heroin Substance route: Injection Frequency: 3-6 times per week Amount used: $200.00 QOD Age of first use: 12 Date of last use: 07/03/18 Family Disease History - Family Disease History Family Disease History: Heart Disease: Mother (), Other: Father ( /mva), Brother (head trauma), Sister (no sister) Admission Physical Exam S - Vital Signs Vital Signs: Vital Signs - 24 hr 07/04/18 07/04/18 12:22 14:02 Temperature 98.0 F 98.0 F Pulse Rate 68 68 Respiratory 18 18 Rate Blood Pressure 101/66 101/66 - Physical General Appearance: Yes: Appropriately Dressed, Moderate Distress, Tremorous, Irritable, Sweating, Anxious HEENTM: Yes: Hearing grossly Normal, Normal Voice, Nasal Congestion, Rhinorrhea Respiratory: Yes: Lungs Clear, Normal Breath Sounds, No Respiratory Distress Neck: Yes: No masses,lesions,Nodules Breast: Yes: Within Normal Limits Cardiology: Yes: Regular Rhythm, Regular Rate, S1, S2 Abdominal: Yes: Normal Bowel Sounds, Non Tender, Soft Genitourinary: Yes: Within Normal Limits Back: Yes: Normal Inspection Musculoskeletal: Yes: full range of Motion, Back pain Extremities: Yes: Normal Capillary Refill, Normal Inspection, Non-Tender, Tremors Neurological: Yes: Fully Oriented, Alert, Normal Response Integumentary: Yes: Normal Color, Diaphoresis, Track Rinaldi Lymphatic: Yes: Within Normal Limits - Diagnostic (1) Alcohol dependence with uncomplicated withdrawal Current Visit: Yes Status: Chronic (2) Chronic back pain greater than 3 months duration Current Visit: Yes Status: Chronic (3) Insomnia Current Visit: No Status: Acute (4) Neuropathy Current Visit: Yes Status: Chronic (5) Cocaine dependence, uncomplicated Current Visit: No Status: Chronic (6) Drug-induced mood disorder Current Visit: No Status: Chronic (7) MDD (major depressive disorder) Current Visit: No Status: Chronic Comment: Self reports. (8) Nicotine dependence Current Visit: Yes Status: Chronic Qualifiers: Nicotine product type: cigarettes Substance use status: uncomplicated Qualified Code(s): F17.210 - Nicotine dependence, cigarettes, uncomplicated (9) Sedative, hypnotic or anxiolytic dependence with withdrawal, uncomplicated Current Visit: Yes Status: Chronic (10) Use of cane as ambulatory aid Current Visit: Yes Status: Chronic (11) Depression (emotion) Current Visit: No Status: Suspected Qualifiers: Depression Type: dysthymia Qualified Code(s): F34.1 - Dysthymic disorder (12) Depressive disorder Current Visit: No Status: Suspected (13) Hepatitis C Current Visit: Yes Status: Chronic Qualifiers: Viral hepatitis chronicity: unspecified Hepatic coma status: without hepatic coma Qualified Code(s): B19.20 - Unspecified viral hepatitis C without hepatic coma (14) Positive PPD, treated Current Visit: No Status: Resolved (15) Methadone maintenance therapy patient Current Visit: Yes Status: Chronic Comment: dose has been verified with [facility] last medicated yesterday with 140mg Cleared for Admission S - Detox or Rehab [facility] Level of Care: Medically Managed Detox Regimen/Protocol: Valium Breathalyzer - Breathalyzer Breathalyzer: 0 POC Urine test - Test device test lot number: [id number] Expiration date: 11/19/19 - Control test control: Yes - Result Urine Test Results: Negative - NO line present Urine Drug Screen - Test Device Lot number: [id number] Expiration date: 02/18/20 - Control Is test valid?: Yes - Results Drug screen NEGATIVE: No Urine drug screen results: EKATERINA-Cocaine, MET-Methamphetamine, MOP-Opiates, OXY- Oxycodone, MTD-Methadone Inpatient Rehab Admission - Rehab Decision to Admit Inpatient rehab admission?: No
[2018-07-04] MEDS ORDERED: hydrOXYzine PAMOATE 25 MG CAPSULE (FP) PO PRN (14:30)
[2018-07-04] MEDS ORDERED: MAG HYDROX/AL HYDROX/SIMETH 30 ML UNIT-DOSE CUP PO PRN (14:30)
[2018-07-04] MEDS ORDERED: METHOCARBAMOL 500 MG TABLET PO PRN (14:30)
[2018-07-04] MEDS ORDERED: MENTHOL/PHENOL 1 EACH UD MM PRN (14:30)
[2018-07-04] MEDS ORDERED: diazePAM 5 MG TABLET PO ONE (14:30)
[2018-07-04] MEDS ORDERED: ACETAMINOPHEN 325 MG TABLET (FP) PO PRN (14:30)
[2018-07-04] MEDS ORDERED: IBUPROFEN 400 MG TABLET (FP) PO PRN (14:30)
[2018-07-04] MEDS ORDERED: ONDANSETRON *ODT* 4 MG TABLET SL PRN (14:30)
[2018-07-04] MEDS ORDERED: MAGNESIUM CITRATE 300 ML BOTTLE PO PRN (14:30)
[2018-07-04] MEDS ORDERED: MAGNESIUM HYDROX 2400MG/30ML ORAL SUSPENSION 30 ML CUP PO PRN (14:30)
[2018-07-04] MEDS ORDERED: P-EPHED 60MG/TRIPROLIDI 2.5MG TABLET PO PRN (14:30)
[2018-07-04] MEDS ORDERED: MELATONIN 5 MG TABLETS PO PRN (14:30)
[2018-07-04] MEDS ORDERED: METHADONE 120 MG, METHADONE 20 MG PO SCH (14:45)
[2018-07-04] MEDS ORDERED: METHADONE HCL 40 MG DISPERSABLE TABLET PO SCH (14:45)
[2018-07-04] MEDS ORDERED: METHADONE HCL 10 MG TABLET ONE (15:22)
[2018-07-04] MEDS ORDERED: METHADONE HCL 40 MG DISPERSABLE TABLET ONE (15:23)
--- NOTE | 2018-07-04 16:23 | CONSULT ---
[facility] Psychiatric Consult - Data Date of interview: 07/04/18 Admission source: [facility] Identifying data: This is one of multiple admissions to [facility] [place] for this 53 y/ o female, from [place] ancestry, self-referred for detoxification ( alcohol, heroin, cocaine). Examined at [address] [place] [address]. Patient is , a mother of two, domiciled,unemployed and supported on [facility] benefits. Substance Abuse History: Confirmed by the patient in this session. Details in current [facility] report : Smoking history: Current every day smoker. Have you smoked in the past 12 months: Yes. Aproximately how many cigarettes per day: 20. Cigars Per Day: 0. Hx Chewing Tobacco Use: No. Initiated information on smoking cessation: Yes. 'Breaking Loose' booklet given: 07/04/18. - Substance & Tx. History. Hx Alcohol Use: Yes. Hx Substance Use: Yes. Substance Use Type : Alcohol, Heroin. Hx Substance Use Treatment: Yes (last detox 04/2018 [facility]) . - Substances abused. Alcohol. Substance route: Oral. Frequency: Daily. Amount used: 5th of vodka, beer 4 x 16oz. Age of first use: 12. Date of last use: 07/03/18. Heroin. Substance route: Injection. Frequency: 3-6 times per week. Amount used: $200.00 QOD. Age of first use: 12. Date of last use: 07/03/18 Medical History: Remarkable for positive PPD, hepatitis C, treatment for herpes genitalis, two sections and history of spinal fusion in 2003 (fracture of cervical spine). Psychiatric History: Patient denies history of psychiatric hospitalizations. Diagnosed with MDD and Anxiety Disorder. She is under the care of a private psychiatrist, in [facility], for medication management. Treated with a combination of wellbutrin XL 300 mg/day + gabapentin 300 mg po tid (confirmed by pharmacy claims of 06/23/18 at [facility]). Ms Choudhary endorses adequate adherence to her medications. Denies history of suicide attempts. Patient is currently on methadone maintenance (140 mg/day) at the [facility] MMTP program in [facility]. Physical/Sexual Abuse/Trauma History: Patient denies. Additional Comment: Urine drug screen results: EKATERINA-Cocaine, MET-Methamphetamine , MOP-Opiates, OXY-Oxycodone, MTD-Methadone. Noted. I Mental Status Exam - Mental Status Exam Alert and Oriented to: Time, Place, Person Cognitive Function: Good Patient Appearance: Well Groomed (loud make-up) Mood: Nervous, Withdrawn, Anxious Affect: Mood Congruent, Constricted Patient Behavior: Sedated (mild sedation; falling asleep during the interview) Speech Pattern: Clear (maintains good conversation with intermittent prompting from interviewer), Delayed Voice Loudness: Normal Thought Process: Goal Oriented Thought Disorder: Not Present Hallucinations: Denies Suicidal Ideation: Denies Homicidal Ideation: Denies Insight/Judgement: Poor Sleep: Poorly, Difficulty falling asleep (wants seroquel) Gait/Station: Other (not observed. Sitting on edge of bed during interview) Psychiatric Findings - Problem List ([place] 1, 2,3) (1) Alcohol dependence with uncomplicated withdrawal Current Visit: Yes Status: Acute (2) Opioid dependence on agonist therapy Current Visit: Yes Status: Chronic (3) Cocaine dependence, uncomplicated Current Visit: Yes Status: Chronic (4) Nicotine dependence Current Visit: Yes Status: Acute Qualifiers: Nicotine product type: cigarettes Substance use status: uncomplicated Qualified Code(s): F17.210 - Nicotine dependence, cigarettes, uncomplicated (5) Drug-induced mood disorder Current Visit: Yes Status: Chronic (6) MDD (major depressive disorder) Current Visit: Yes Status: Chronic Comment: Self reports. (7) Insomnia Current Visit: Yes Status: Chronic - Initial Treatment Plan Initial Treatment Plan: Psychoeducation. Sleep hygiene. Detoxification. Support. AA/NA meetings. Patient insists on the continuation of her medications. Ordered : wellbutrin XL 300 mg po daily. Side effects/benefits are explained to the patient. Made aware of potential for seizures. Consent (verbal ) given to MD. De La Cruz.
--- NOTE | 2018-07-04 16:54 | PN ---
[facility] Progress Note Note: requested NCRT d/t smoking one pack of cigarettes per day Nicotine gum and patch ordered continue to monitor
[2018-07-04 17:06] LABS: HEMATOCRIT 35.7 % (32.4-45.2); MCH 29.3 pg (25.7-33.7); MCHC 33.7 g/dl (32.0-36.0); MEAN PLT VOLUME 7.5 fl (7.5-11.1); PLATELET COUNT 243 K/MM3 (134-434); RDW 14.4 % (11.6-15.6); WHITE BLOOD COUNT 6.3 K/mm3 (4.0-10.0)
[2018-07-04 17:26] LABS: ALBUMIN 3.6 g/dl (3.4-5.0); ALK PHOS 107 U/L (45-117); ANION GAP 3 MMOL/L (8-16); BILIRUBIN,TOTAL 0.2 mg/dL (0.2-1); BLOOD UREA NITROGEN 23 mg/dL (7-18); CALCIUM 8.9 mg/dL (8.5-10.1); CHLORIDE 106 mmol/L (98-107); CO2 29 mmol/L (21-32); CREATININE 0.7 mg/dL (0.55-1.3); GLUCOSE,RANDOM 97 mg/dL (74-106); POTASSIUM 4.1 mmol/L (3.5-5.1); SGOT/AST 13 U/L (15-37); SGPT/ALT 20 U/L (13-61); SODIUM 139 mmol/L (136-145); TOT PROT 7.5 g/dl (6.4-8.2)
[2018-07-04] MEDS: BISMUTH SUBSALICYLATE 262 MG/15 ML BTL PO PRN ×2 (18:13→19:51)
[2018-07-04] MEDS: VITAMINS A AND D TOPICAL OINTMENT 60 GM TUBE TP SCH (22:42)
[2018-07-04] MEDS: diazePAM 5 MG TABLET PO SCH (22:43)
[2018-07-04] MEDS: THIAMINE HCL 100 MG TABLET (FP) PO SCH (22:43)
[2018-07-04] MEDS: ACETAMINOPHEN 325 MG TABLET (FP) PO PRN (23:23)
[2018-07-04] MEDS: diazePAM 5 MG TABLET PO PRN (23:24)
[2018-07-05] MEDS: diazePAM 5 MG TABLET PO SCH ×3 (05:05→22:07)
[2018-07-05] MEDS ORDERED: METHADONE HCL 40 MG DISPERSABLE TABLET ONE (08:25)
[2018-07-05] MEDS ORDERED: METHADONE HCL 10 MG TABLET ONE (08:25)
[2018-07-05 08:54] LABS: RPR REACTIVE 1:1 (NONREACTIVE)
[2018-07-05 08:55] LABS: TREPONEMA ANTIBODY PREVIOUSLY REACTIVE (NONREACTIVE)
--- NOTE | 2018-07-05 09:37 | PN ---
[facility] CIWA - CIWA Score Nausea/Vomitin-Mild Nausea/No Vomiting Muscle Tremors: 3 Anxiety: 4-Mod. Anxious/Guarded Agitation: 3 Paroxysmal Sweats: 1-Minimal Palms Moist Orientation: 1-Uncertain about Date Tacttile Disturbances: 0-None Auditory Disturbances: 0-None Visual Disturbances: 0-None Headache: 0-None Present CIWA-Ar Total Score: 13 S Progress Note (SOAP) Subjective: patient wants methadone at 0600 change methadone schedule to 0600 begin 07/06/18 Objective: 07/05/18 09:35 Vital Signs Temperature 96.7 F L 07/05/18 09:16 Pulse Rate 63 07/05/18 09:16 Respiratory Rate 18 07/05/18 09:16 Blood Pressure 89/56 L 07/05/18 09:16 O2 Sat by Pulse Oximetry (%) Laboratory Last Values WBC 6.3 K/mm3 (4.0-10.0) 07/04/18 14:40 RBC 4.10 M/mm3 (3.60-5.2) 07/04/18 14:40 Hgb 12.0 GM/dL (10.7-15.3) 07/04/18 14:40 Hct 35.7 % (32.4-45.2) 07/04/18 14:40 MCV 87.0 fl (80-96) 07/04/18 14:40 MCH 29.3 pg (25.7-33.7) 07/04/18 14:40 MCHC 33.7 g/dl (32.0-36.0) 07/04/18 14:40 RDW 14.4 % (11.6-15.6) 07/04/18 14:40 Plt Count 243 K/MM3 (134-434) D 07/04/18 14:40 MPV 7.5 fl (7.5-11.1) 07/04/18 14:40 Sodium 139 mmol/L (136-145) 07/04/18 14:40 Potassium 4.1 mmol/L (3.5-5.1) 07/04/18 14:40 Chloride 106 mmol/L (98-107) 07/04/18 14:40 Carbon Dioxide 29 mmol/L (21-32) 07/04/18 14:40 Anion Gap 3 MMOL/L (8-16) L 07/04/18 14:40 BUN 23 mg/dL (7-18) H 07/04/18 14:40 Creatinine 0.7 mg/dL (0.55-1.3) 07/04/18 14:40 Creat Clearance w eGFR 87.20 (>60) 07/04/18 14:40 Random Glucose 97 mg/dL (74-106) 07/04/18 14:40 Calcium 8.9 mg/dL (8.5-10.1) 07/04/18 14:40 Total Bilirubin 0.2 mg/dL (0.2-1) 07/04/18 14:40 AST 13 U/L (15-37) L 07/04/18 14:40 ALT 20 U/L (13-61) 07/04/18 14:40 Alkaline Phosphatase 107 U/L (45-117) 07/04/18 14:40 Total Protein 7.5 g/dl (6.4-8.2) 07/04/18 14:40 Albumin 3.6 g/dl (3.4-5.0) 07/04/18 14:40 RPR Titer Reactive 1:1 (NONREACTIVE) H 07/04/18 14:40 T.pallidum Ab (MHA) Previously reactive (NONREACTIVE) 07/04/18 14:40 lab noted Assessment: 07/05/18 09:36 withdrawal sx methadone 140 mg po 0600 hemmoroid external 07/05/18 09:37 diarrhea Plan: continue detox increase oral fluid encourage pepto bismoth
[2018-07-05] MEDS ORDERED: METHADONE 120 MG, METHADONE 20 MG PO ONE (10:00)
[2018-07-05] MEDS: NICOTINE 21 MG/24 HOURS TOPICAL PATCH TD SCH (10:06)
[2018-07-05] MEDS: valACYclovir HCL 500 MG TABLET (FP) PO SCH (10:06)
[2018-07-05] MEDS: VITAMINS A AND D TOPICAL OINTMENT 60 GM TUBE TP SCH ×2 (10:06→22:07)
[2018-07-05] MEDS: PRENATAL VITAMINS W/ FOLIC ACID TABLET (FP) PO SCH (10:06)
[2018-07-05] MEDS: BISMUTH SUBSALICYLATE 262 MG/15 ML BTL PO PRN ×2 (10:07→14:39)
[2018-07-05] MEDS: diazePAM 5 MG TABLET PO PRN ×2 (10:10→18:08)
[2018-07-05] MEDS: BENZOCAINE 28 GM HEMORRHOIDAL OINTMENT PR SCH ×2 (12:20→23:38)
[2018-07-05] MEDS ORDERED: GABAPENTIN 300 MG CAPSULE (FP) PO SCH (14:00)
[2018-07-05] MEDS ORDERED: TRIMETHOBENZAMIDE HCL 200MG/2ML INJ IM PRN (18:12)
[2018-07-05] MEDS ORDERED: LOPERAMIDE HCL 2 MG CAPSULE PO PRN (19:20)
[2018-07-05] MEDS: THIAMINE HCL 100 MG TABLET (FP) PO SCH (22:06)
--- NOTE | 2018-07-05 22:58 | PN ---
[facility] Progress Note Note: I was called by the nurse, Ms. Demarco Degroot to evaluate patient who is status post a fall in the bathroom. Patient reports that she fell on her left knee and did not hit her head on the floor. She is alert and oriented to person, place and time. Denies pain or discomfort at this time. Rates pain at 0/10. No bruises, swelling, redness or injury noted or reported. Patient ambulates without discomfort. Fall was unwitnessed. Fall protocol # 1 initiated. Patient refused to be evaluated in ER and signed the refusal of medical treatment form. Will monitor patient Vital Signs Temperature 98.4 F 07/05/18 21:40 Pulse Rate 69 07/05/18 21:40 Respiratory Rate 16 07/05/18 21:40 Blood Pressure 90/63 07/05/18 21:40 O2 Sat by Pulse Oximetry (%)
--- NOTE | 2018-07-06 00:16 | PN ---
[facility] Progress Note Note: Patient reports diarrhea and otto anal rash. Vital Signs Temperature 96.7 F L 07/05/18 23:45 Pulse Rate 79 07/05/18 23:45 Respiratory Rate 16 07/05/18 23:45 Blood Pressure 103/65 07/05/18 23:45 O2 Sat by Pulse Oximetry (%) Action: Continue Loperamide HCL 2mg oral Q8H as needed Continue Valciclovir HCL 500mg oral daily Continue Benzocaine ointment 1 application per rectum BID Continue vitamin A& D topical ointmtnt 1 application topical BID
[2018-07-06] MEDS: diazePAM 5 MG TABLET PO PRN ×2 (01:58→13:56)
[2018-07-06] MEDS ORDERED: METHADONE HCL 40 MG DISPERSABLE TABLET ONE (04:24)
[2018-07-06] MEDS ORDERED: METHADONE HCL 10 MG TABLET ONE (04:24)
[2018-07-06] MEDS: METHADONE 120 MG, METHADONE 20 MG PO SCH (05:26)
[2018-07-06] MEDS ORDERED: METHADONE HCL 40 MG DISPERSABLE TABLET PO SCH (06:00)
[2018-07-06] MEDS: valACYclovir HCL 500 MG TABLET (FP) PO SCH (10:20)
[2018-07-06] MEDS: VITAMINS A AND D TOPICAL OINTMENT 60 GM TUBE TP SCH ×2 (10:20→22:13)
[2018-07-06] MEDS: diazePAM 5 MG TABLET PO SCH ×2 (10:20→22:12)
[2018-07-06] MEDS: PRENATAL VITAMINS W/ FOLIC ACID TABLET (FP) PO SCH (10:20)
[2018-07-06] MEDS: BENZOCAINE 28 GM HEMORRHOIDAL OINTMENT PR SCH ×2 (10:21→22:13)
[2018-07-06] MEDS: NICOTINE 21 MG/24 HOURS TOPICAL PATCH TD SCH (10:21)
--- NOTE | 2018-07-06 11:34 | PN ---
[facility] CIWA - CIWA Score Nausea/Vomitin-No Nausea/No Vomiting Muscle Tremors: 2 Anxiety: 1-Mildly Anxious Agitation: 2 Paroxysmal Sweats: 1-Minimal Palms Moist Orientation: 2-Disoriented Date<2 days Tacttile Disturbances: 0-None Auditory Disturbances: 0-None Visual Disturbances: 0-None Headache: 0-None Present CIWA-Ar Total Score: 8 [facility] Progress Note (SOAP) Subjective: no more loose stool, perianal sore moist and redness not blood noted apply A+D ointment encourage to keep area dry and clean avoid irritation Objective: 07/06/18 11:46 Vital Signs Temperature 97.8 F 07/06/18 09:46 Pulse Rate 66 07/06/18 09:46 Respiratory Rate 20 07/06/18 09:46 Blood Pressure 97/62 07/06/18 09:46 O2 Sat by Pulse Oximetry (%) Laboratory Last Values WBC 6.3 K/mm3 (4.0-10.0) 07/04/18 14:40 RBC 4.10 M/mm3 (3.60-5.2) 07/04/18 14:40 Hgb 12.0 GM/dL (10.7-15.3) 07/04/18 14:40 Hct 35.7 % (32.4-45.2) 07/04/18 14:40 MCV 87.0 fl (80-96) 07/04/18 14:40 MCH 29.3 pg (25.7-33.7) 07/04/18 14:40 MCHC 33.7 g/dl (32.0-36.0) 07/04/18 14:40 RDW 14.4 % (11.6-15.6) 07/04/18 14:40 Plt Count 243 K/MM3 (134-434) D 07/04/18 14:40 MPV 7.5 fl (7.5-11.1) 07/04/18 14:40 Sodium 139 mmol/L (136-145) 07/04/18 14:40 Potassium 4.1 mmol/L (3.5-5.1) 07/04/18 14:40 Chloride 106 mmol/L (98-107) 07/04/18 14:40 Carbon Dioxide 29 mmol/L (21-32) 07/04/18 14:40 Anion Gap 3 MMOL/L (8-16) L 07/04/18 14:40 BUN 23 mg/dL (7-18) H 07/04/18 14:40 Creatinine 0.7 mg/dL (0.55-1.3) 07/04/18 14:40 Creat Clearance w eGFR 87.20 (>60) 07/04/18 14:40 Random Glucose 97 mg/dL (74-106) 07/04/18 14:40 Calcium 8.9 mg/dL (8.5-10.1) 07/04/18 14:40 Total Bilirubin 0.2 mg/dL (0.2-1) 07/04/18 14:40 AST 13 U/L (15-37) L 07/04/18 14:40 ALT 20 U/L (13-61) 07/04/18 14:40 Alkaline Phosphatase 107 U/L (45-117) 07/04/18 14:40 Total Protein 7.5 g/dl (6.4-8.2) 07/04/18 14:40 Albumin 3.6 g/dl (3.4-5.0) 07/04/18 14:40 RPR Titer Reactive 1:1 (NONREACTIVE) H 07/04/18 14:40 T.pallidum Ab (MHA) Previously reactive (NONREACTIVE) 07/04/18 14:40 lab noted Assessment: 07/06/18 11:54 mild withdrawal sx Plan: continue detox
[2018-07-06] MEDS: GABAPENTIN 300 MG CAPSULE (FP) PO SCH ×2 (13:56→22:13)
[2018-07-06] MEDS: THIAMINE HCL 100 MG TABLET (FP) PO SCH (22:12)
[2018-07-07] MEDS ORDERED: METHADONE HCL 10 MG TABLET ONE (04:36)
[2018-07-07] MEDS ORDERED: METHADONE HCL 40 MG DISPERSABLE TABLET ONE (04:37)
[2018-07-07] MEDS: GABAPENTIN 300 MG CAPSULE (FP) PO SCH ×2 (05:43→13:33)
[2018-07-07] MEDS: METHADONE 120 MG, METHADONE 20 MG PO SCH (05:43)
[2018-07-07] MEDS ORDERED: diazePAM 5 MG TABLET PO SCH (06:00)
[2018-07-07 06:13] VITALS: BP 95/60; PULSE 53; TEMP 97.1
[2018-07-07] MEDS: VITAMINS A AND D TOPICAL OINTMENT 60 GM TUBE TP SCH (10:55)
[2018-07-07] MEDS: NICOTINE 21 MG/24 HOURS TOPICAL PATCH TD SCH (10:56)
[2018-07-07] MEDS: valACYclovir HCL 500 MG TABLET (FP) PO SCH (10:56)
[2018-07-07] MEDS: BENZOCAINE 28 GM HEMORRHOIDAL OINTMENT PR SCH (10:56)
[2018-07-07] MEDS: PRENATAL VITAMINS W/ FOLIC ACID TABLET (FP) PO SCH (10:56)
[2018-07-07] MEDS: ACETAMINOPHEN 325 MG TABLET (FP) PO PRN (10:57)
[2018-07-07] MEDS: diazePAM 5 MG TABLET PO PRN (11:01)
--- NOTE | 2018-07-07 14:43 | DS ---
[facility] Detox Discharge Summary Admission Date: 07/04/18 Discharge Date: 07/07/18 - History Present History: Alcohol Dependence, Opioid Dependence, MMTP Pertinent Past History: pt admitted for detox from alcohol, in MAT. Pt reluctant to leave as she has no definite place to stay- thought that she was leaving tomorrow. Wanted private taxi transportation rather Pt fell near nursing desk. Pt did not hit head. Fell on side. No gross injuries noted. Pt rec'd usual dose of methadone ~140 mg/day- to go to MAT tomorrow - Physical Exam Results Vital Signs: Vital Signs Temperature 97.1 F L 07/07/18 06:12 Pulse Rate 53 L 07/07/18 06:12 Respiratory Rate 16 07/07/18 06:12 Blood Pressure 95/60 07/07/18 06:12 O2 Sat by Pulse Oximetry (%) - Treatment Hospital Course: Detox Protocol Followed, Detoxed Safely, Responded well, Discharged Condition Good - Medication Discharge Medications: Ambulatory Orders Methadone [Dolophine -] 140 mg PO DAILY 04/25/18 Valacyclovir HCl [Valtrex -] 500 mg PO DAILY 04/25/18 Bupropion HCl [Wellbutrin Xl -] 300 mg PO DAILY #30 tab 04/26/18 Gabapentin [Neurontin -] 300 mg PO TID #90 cap MDD 900 04/26/18 - AMA Did Patient Leave Against Medical Advice: No
== END 2018-07-07 15:36 | disposition home or self-care (01) | DRG 897 ==
LOC: YASAS 10:54 → Y3N 14:32
PROVIDERS: ADMIT Surgery; ATTEND Surgery
PROC: HZ2ZZZZ Detoxification Services for Substance Abuse Treatment (ICD-10-PCS; principal; 2018-07-04)
DX: F10.230 Alcohol dependence with withdrawal, uncomplicated (principal); F11.20 Opioid dependence, uncomplicated; F14.20 Cocaine dependence, uncomplicated; F17.210 Nicotine dependence, cigarettes, uncomplicated; F19.24 Other psychoactive substance dependence with psychoactive substance-induced mood disorder; F32.9 Major depressive disorder, single episode, unspecified; F34.1 Dysthymic disorder; K64.4 Residual hemorrhoidal skin tags; R19.5 Other fecal abnormalities; G47.00 Insomnia, unspecified; G62.9 Polyneuropathy, unspecified; M54.9 Dorsalgia, unspecified; G89.29 Other chronic pain; B19.20 Unspecified viral hepatitis C without hepatic coma; Z87.42 Personal history of other diseases of the female genital tract; R26.2 Difficulty in walking, not elsewhere classified; Z99.89 Dependence on other enabling machines and devices; W18.30XA Fall on same level, unspecified, initial encounter; Y93.89 Activity, other specified; Y92.231 Patient bathroom in hospital as the place of occurrence of the external cause
CPT/HCPCS: 36415; 80053; 85027; 86593; 86780

== ENCOUNTER 2019-10-28 15:39 | Emergency (ER) | payer BC, OTHER ==
[2019-10-28 15:49] VITALS: BP 107/68; PULSE 68; TEMP 98; BMI 23.5
--- NOTE | 2019-10-28 16:15 | PDOC ---
History of Present Illness - General Chief Complaint: Pain Stated Complaint: CELULITIS Time Seen by Provider: 10/28/19 15:56 - History of Present Illness Initial Comments: 10/28/19 16:49 54 y/o F hx of polysubstance abuse on methadone (150mg daily at [facility]) presents to the ED with pain and redness in her left leg. Pt denies any trauma, bites or injuries at the time she noticed the pain. She describes the pain as a 10/10 burning pain in her left leg. Pain reports increased difficulty with ambulation due to pain, of note uses a cane at baseline. She denies any fevers,chills, purulence from affected area, swelling, hx of blood clots. PMHx: as noted above ROS: as noted SHx: denies current IV drug use. Allergies: NKDA ROS: GENERAL/CONSTITUTIONAL: No fever or chills. No weakness. HEAD, EYES, EARS, NOSE AND THROAT: No change in vision. No ear pain or discharge. No sore throat. CARDIOVASCULAR: No chest pain or shortness of breath RESPIRATORY: No cough, wheezing, or hemoptysis. GASTROINTESTINAL: No nausea, vomiting, diarrhea or constipation. GENITOURINARY: No dysuria, frequency, or change in urination. MUSCULOSKELETAL: No joint or muscle swelling or pain. No neck or back pain. SKIN: No rash NEUROLOGIC: No headache, vertigo, loss of consciousness, or change in strength/sensation. ENDOCRINE: No increased thirst. No abnormal weight change HEMATOLOGIC/LYMPHATIC: No anemia, easy bleeding, or history of blood clots. ALLERGIC/IMMUNOLOGIC: No hives or skin allergy. PE: GENERAL: Awake, alert, and fully oriented, in no acute distress HEAD: No signs of trauma, normocephalic, atraumatic EYES: PERRLA, EOMI, sclera anicteric, conjunctiva clear ENT: Auricles normal inspection, hearing grossly normal, nares patent, oropharynx clear without exudates. Moist mucosa NECK: Normal ROM, supple, no lymphadenopathy, JVD, or masses LUNGS: No distress, speaks full sentences, clear to auscultation bilaterally HEART: Regular rate and rhythm, normal S1 and S2, no murmurs, rubs or gallops, peripheral pulses normal and equal bilaterally. ABDOMEN: Soft, nontender, normoactive bowel sounds. No guarding, no rebound. No masses EXTREMITIES : erythematous area on anterior newton. meauring 13cm anteriorly (prox-distal) NEUROLOGICAL: Cranial nerves II through XII grossly intact. Normal speech, normal gait, no focal sensorimotor deficits SKIN: Warm, Dry, normal turgor, no rashes or lesions noted 10/28/19 17:31 10/28/19 19:23 Past History - Medical History Allergies/Adverse Reactions: Allergies Allergy/AdvReac Type Severity Reaction Status Date / Time No Known Allergies Allergy Verified 07/04/18 12:14 Home Medications: Ambulatory Orders Methadone [Dolophine -] 140 mg PO DAILY 04/25/18 Valacyclovir HCl [Valtrex -] 500 mg PO DAILY 04/25/18 Bupropion HCl [Wellbutrin Xl -] 300 mg PO DAILY #30 tab 04/26/18 Gabapentin [Neurontin -] 300 mg PO TID #90 cap MDD 900 04/26/18 Sulfamethoxazole/Trimethoprim [Bactrim Ds -] 1 tab PO BID #13 tablet 10/28/19 Anemia: No Asthma: No Cancer: No Cardiac Disorders: No CVA: No COPD: No CHF: No Dementia: No Diabetes: No GI Disorders: No Disorders: No HTN: No Hypercholesterolemia: No Kidney Stones: No Liver Disease: No Seizures: No Thyroid Disease: No - Surgical History Abdominal Surgery: No Appendectomy: No Cardiac Surgery: No Cholecystectomy: No Lung Surgery: No Neurologic Surgery: Yes (Fx neck 2011) Orthopedic Surgery: Yes (back 2003) - Reproductive History PID: No - Psycho-Social/Smoking History Smoking History: Current every day smoker Have you smoked in the past 12 months: Yes Number of Cigarettes Smoked Daily: 20 Cigars Per Day: 0 Information on smoking cessation initiated: No 'Breaking Loose' booklet given: 07/04/18 - Substance Abuse Hx (Audit-C & DAST Scrn) How often the patient has a drink containing alcohol: 2-4 times / month Score: In Men: 4 or > Positive; In Women: 3 or > Positive: 2 Screen Result (Pos requires Nsg. Audit-10AR): Negative *Physical Exam - Vital Signs Last Vital Signs Temp Pulse Resp BP Pulse Ox 98 F 68 18 107/68 99 10/28/19 15:46 10/28/19 15:46 10/28/19 15:46 10/28/19 15:46 10/28/19 15:46 ED Treatment Course - LABORATORY CBC & Chemistry Diagram: 10/28/19 05:27 10/28/19 05:27 Medical Decision Making - Medical Decision Making 10/28/19 17:37 54 y/o F hx of polysubstance abuse presents to the Ed with pain and redness in her left leg. labs, soft tissue ultrasound bactrim pt has excruciating pain given po tylenol. says relief minimal sent for ultrasound due to pain out of proportion to exam findings left leg was soft but tender to palpation , no tenderness, pulses intact pt offered motrin, but complains she gets nauseous if she takes nsaids on an empty stomach. Pt offered lidocaine cream, willing to try it. 10/28/19 19:26 10/28/19 19:32 10/28/19 19:58 FINDINGS:There is a 4.4 cm structure in the left mid medial calf possibly representing a superficial thrombosis. Posterior tibial veins appear patent. IMPRESSION: Likely superficial vein thrombosis. pt stable to be discharged at this time. pt left without her discharge paper workk, but was given a copy of her ultrasound report and with prescription for abx she was told to come back to the ED if she has any fevers/chills or increasing erythema of her left leg. 10/28/19 23:30 Discharge - Discharge Information Problems reviewed: Yes Clinical Impression/Diagnosis: Cellulitis Qualifiers: Site of cellulitis: extremity Condition: Stable Disposition: HOME - Admission No - Additional Discharge Information Prescriptions: Sulfamethoxazole/Trimethoprim [Bactrim Ds -] 1 tab PO BID #13 tablet - Follow up/Referral - Patient Discharge Instructions Patient Printed Discharge Instructions: DI for Cellulitis -- Adult Additional Instructions: Rest and elevate affected area. Take Motrin 600mg every 8 hours with food for pain. Please take Antibiotics as directed. If you experience any worsening redness, swelling, streaking (red lines), fever or chills please return to ED. you will be contacted with information for a primary care doctor. - Post Discharge Activity
[2019-10-28] MEDS ORDERED: ACETAMINOPHEN 500 MG TABLET (FP) PO ONE (16:26)
[2019-10-28] MEDS ORDERED: ACETAMINOPHEN 500 MG TABLET (FP) ONE (16:33)
[2019-10-28] MEDS ORDERED: SULFAMETHOXAZOLE/TRIMETHOPRIM 800MG/160MG D.S. TABLET PO ONE (16:46)
[2019-10-28] MEDS ORDERED: SULFAMETHOXAZOLE/TRIMETHOPRIM 800MG/160MG D.S. TABLET ONE (16:52)
[2019-10-28 17:49] LABS: BASO % 0.5 % (0-2.0); EOS % 2.3 % (0-4.5); HEMATOCRIT 33.9 % (32.4-45.2); HEMOGLOBIN 11.3 GM/dL (10.7-15.3); LYMPH % 21.3 % (8-40); MCH 29.4 pg (25.7-33.7); MCHC 33.5 g/dl (32.0-36.0); MEAN CELL VOLUME 87.7 fl (80-96); MEAN PLT VOLUME 7.8 fl (7.5-11.1); MONO % 11.5 % (3.8-10.2); NEUT % 64.4 % (42.8-82.8); PLATELET COUNT 188 K/MM3 (134-434); RBC 3.86 M/mm3 (3.60-5.2); RDW 13.7 % (11.6-15.6); WHITE BLOOD COUNT 7.9 K/mm3 (4.0-10.0)
--- NOTE | 2019-10-28 17:51 | PDOC ---
Attending Attestation - Resident Resident Name: Key Valverde - HPI HPI: 10/28/19 17:51 Pt presents to the ED complaining of LLE redness, mild swelling and pain that started 2 days ago. Denies fever, nausea or vomiting. Denies trauma. Denies prior episodes of cellulitis. 10/28/19 17:51 - Physicial Exam PE: 10/28/19 17:52 PAtient is alert and in no acute distress. LLE: + 10 cm area of erythema on the anterior calf with mild redness to the skin, mild tenderness and warmth of the skin. No calf tenderness. Calf is soft and non tender. - Medical Decision Making 10/28/19 18:05 Pt presents to the ED complaining of LLE pain and erythema consistent with cellulitis. No immunocompromise or systemic signs of infection. Patient does have somewhat more pain than expected. Will check labs and duplex and reassess. Discharge - Discharge Information Problems reviewed: Yes Clinical Impression/Diagnosis: Cellulitis Condition: Stable Disposition: HOME - Admission No - Follow up/Referral - Patient Discharge Instructions Patient Printed Discharge Instructions: DI for Cellulitis -- Adult Additional Instructions: Rest and elevate affected area. Take Motrin 600mg every 8 hours with food for pain. Please take Antibiotics as directed. If you experience any worsening redness, swelling, streaking (red lines), fever or chills please return to ED. you will be contacted with information for a primary care doctor. - Post Discharge Activity
[2019-10-28 17:59] LABS: INR 1.04 (0.83-1.09); PROTHROMBIN TIME (PATIENT) 12.3 SEC (9.7-13.0)
[2019-10-28 18:01] LABS: ACTIVATED PTT 27.8 SECONDS (25.2-36.5)
[2019-10-28 18:19] LABS: ALBUMIN 3.3 g/dl (3.4-5.0); BILIRUBIN,TOTAL 0.3 mg/dL (0.2-1); BLOOD UREA NITROGEN 13.4 mg/dL (7-18); CALCIUM 8.6 mg/dL (8.5-10.1); CREATININE 0.7 mg/dL (0.55-1.3); POTASSIUM 3.9 mmol/L (3.5-5.1); TOT PROT 6.7 g/dl (6.4-8.2)
[2019-10-28] MEDS ORDERED: LIDOCAINE 2.5%/PRILOCAINE 2.5% 30 GRAM TUBE TP ONE (19:30)
[2019-10-28] MEDS ORDERED: LIDOCAINE 2.5%/PRILOCAINE 2.5% (5 Gram/TUBE) TP ONE (19:54)
== END 2019-10-28 20:13 | disposition home or self-care (01) ==
LOC: JER 15:39
DX: L03.116 Cellulitis of left lower limb (principal)
CPT/HCPCS: 36415; 76882-TC-RT-FY; 80053; 85025; 85610; 85730; 99284-25

== ENCOUNTER 2019-11-05 16:50 | Inpatient (IN) | payer BC, OTHER ==
--- NOTE | 2019-11-05 20:10 | HP ---
CIWA Score Nausea/Vomitin-No Nausea/No Vomiting Muscle Tremors: None Anxiety: 1-Mildly Anxious Agitation: 1-Slight > Activity Paroxysmal Sweats: No Perspiration Orientation: 0-Oriented Tacttile Disturbances: 1-Very Mild Itch/Numbness Auditory Disturbances: 0-None Visual Disturbances: 1-Very Mild Sensitivity Headache: 0-None Present CIWA-Ar Total Score: 4 - Admission Criteria OASAS Guidelines: Admission for Medically Managed Detox: Requires at least one of the followin. CIWA greater than 12 2. Seizures within the past 24 hours 3. Delirium tremens within the past 24 hours 4. Hallucinations within the past 24 hours 5. Acute intervention needed for co occurring medical disorder 6. Acute intervention needed for co occurring psychiatric disorder 7. Severe withdrawal that cannot be handled at a lower level of care (continued vomiting, continued diarrhea, abnormal vital signs) requiring intravenous medication and/or fluids 8. Admitting History and Physical - Past Medical History ...LMP: 03/21/06 - Smoking History Smoking history: Current every day smoker Have you smoked in the past 12 months: Yes Aproximately how many cigarettes per day: 20 - Alcohol/Substance Use Hx Alcohol Use: Yes Admission [facility] Allergies/Adverse Reactions: Allergies Allergy/AdvReac Type Severity Reaction Status Date / Time No Known Allergies Allergy Verified 07/04/18 12:14 History of Present Illness: 54 yo female requesting detox from alcohol use, reports 1/5 liquor and a 12-pk beer /day reports tremors if not drinking , unsure if she ever had a seizure , admits to [facility] , latest use today . Heroin : (IV), crack / cocaine, cocaine : " a little here and there " IV use : arms " wherever I can find a spot " [facility] x 3 years on methadone maintenance of 150 mg, dose pending verification. PMHX; neuropathy, chronic back pain, depression and anxiety. , C-sp frx 2/2 fall down stairs , has residual Left- sided weakness , ambulating w/cane. PSHX : C/L spine Denies SI / HI Exam Limitations: Clinical Condition - Review of Systems Constitutional: No Symptoms Reported EENT: reports: Other (reading glasses , partial dentures) Respiratory: reports: No Symptoms reported Cardiac: reports: No Symptoms Reported GI: reports: Constipated : reports: No Symptoms Reported Musculoskeletal: reports: No Symptoms Reported Integumentary: reports: Other (reports injury left greater toe hit chair) Neuro: reports: No Symptoms reported Endocrine: reports: No Symptoms Reported Hematology: reports: Anemia (in the past) Psychiatric: reports: Orientated x3, Agitated, Anxious Patient History - Patient Medical History Hx Anemia: No Hx Asthma: No Hx Chronic Obstructive Pulmonary Disease (COPD): No Hx Cancer: No Hx Cardiac Disorders: No Hx Congestive Heart Failure: No Hx Hypertension: No Hx Hypercholesterolemia: No Hx Pacemaker: No HX Cerebrovascular Accident: No Hx Seizures: No Hx Dementia: No Hx Diabetes: No Hx Gastrointestinal Disorders: No Hx Liver Disease: No Hx Genitourinary Disorders: No Hx Sexually Transmitted Disorders: Yes (Pt has a hx of genital herpes/ on valtrex) Hx Renal Disease (ESRD): No Hx Thyroid Disease: No Hx Human Immunodeficiency Virus (HIV): No (negative) Hx Hepatitis C: Yes (treated) Hx Depression: Yes Hx Suicide Attempt: No Hx Bipolar Disorder: No Hx Schizophrenia: No - Patient Surgical History Past Surgical History: Yes Hx Neurologic Surgery: Yes (Fx neck 2011) Hx Cataract Extraction: No Hx Cardiac Surgery: No Hx Lung Surgery: No Hx Breast Surgery: No Hx Breast Biopsy: No Hx Abdominal Surgery: No Hx Appendectomy: No Hx Cholecystectomy: No Hx Genitourinary Surgery: No Hx Section: Yes (1994 2000) Hx Orthopedic Surgery: Yes (back 2003) Hx Hysterectomy: No Other Surgical History: Spinal fusion in 2003 Anesthesia Reaction: No - PPD History Results: -chest x-ray - Reproductive History Last Menstrual Period: 03/21/06 - Smoking Cessation Smoking history: Current every day smoker Have you smoked in the past 12 months: Yes Aproximately how many cigarettes per day: 20 Cigars Per Day: 0 Hx Chewing Tobacco Use: No Initiated information on smoking cessation: Yes 'Breaking Loose' booklet given: 11/05/19 - Substances abused Alcohol Substance route: Oral Frequency: Daily Amount used: 1 pint / 12 pack of beer Age of first use: 12 Date of last use: 11/05/19 Cocaine Substance route: Injection Frequency: 1-2 times per week Amount used: $100 Age of first use: 14 Date of last use: 11/03/19 Heroin Substance route: Injection Amount used: 2 to 10 bags Age of first use: 26 Date of last use: 11/03/19 Admission Physical Exam BHS - Physical General Appearance: Yes: Mild Distress, Anxious HEENTM: Yes: EOMI, Hearing grossly Normal, Normocephalic, Normal Voice, Other (edentulous) Respiratory: Yes: Chest Non-Tender, Lungs Clear, Normal Breath Sounds, No Respiratory Distress, No Accessory Muscle Use Neck: Yes: No masses,lesions,Nodules, Trachea in good position, Other (surgical scar posterior cervical) Cardiology: Yes: Regular Rhythm, Regular Rate, S1, S2 Abdominal: Yes: Non Tender, Soft Back: Yes: Normal Inspection, Surgical Scar Musculoskeletal: Yes: Other (unsteady gait , LLE limp) Extremities: Yes: Normal Range of Motion, Non-Tender, Pedal Edema (left foot) Neurological: Yes: Alert, Depressed Affect, Other (left UE / LE decreased strength / sensation) Integumentary: Yes: Warm, Track Rinaldi (reba UE), Other (left greater toe plantar aspect hematoma , extensive scarring reba UE from self- inflicted injuries.) - Diagnostic (1) Alcohol dependence with uncomplicated withdrawal Current Visit: Yes Status: Chronic (2) Nicotine dependence Current Visit: Yes Status: Chronic Qualifiers: Nicotine product type: cigarettes Substance use status: uncomplicated Qualified Code(s): F17.210 - Nicotine dependence, cigarettes, uncomplicated (3) Cocaine dependence, uncomplicated Current Visit: Yes Status: Chronic (4) Opioid dependence on agonist therapy Current Visit: Yes Status: Chronic Breathalyzer - Breathalyzer Breathalyzer: 0 POC Urine test - Test device test lot number: [id number] Expiration date: 11/19/19 - Control test control: Yes Urine Drug Screen - Test Device Lot number: [id number] Expiration date: 02/18/20 - Control Is test valid?: Yes - Results Drug screen NEGATIVE: No Urine drug screen results: EKATERINA-Cocaine, MET-Methamphetamine, MOP-Opiates, OXY- Oxycodone, MTD-Methadone Inpatient Rehab Admission - Rehab Decision to Admit Inpatient rehab admission?: No
[2019-11-05] MEDS ORDERED: ONDANSETRON *ODT* 4 MG TABLET SL PRN (20:30)
[2019-11-05] MEDS ORDERED: MENTHOL/PHENOL 1 EACH UD MM PRN (20:30)
[2019-11-05] MEDS ORDERED: ACETAMINOPHEN 325 MG TABLET (FP) PO PRN ×2 (20:30)
[2019-11-05] MEDS ORDERED: MAGNESIUM HYDROX 2400MG/30ML ORAL SUSPENSION 30 ML CUP PO PRN (20:30)
[2019-11-05] MEDS ORDERED: MELATONIN 5 MG TABLETS PO PRN (20:30)
[2019-11-05] MEDS ORDERED: BISMUTH SUBSALICYLATE 524 MG/30 ML UD PO PRN (20:30)
[2019-11-05] MEDS ORDERED: MAGNESIUM CITRATE 300 ML BOTTLE PO PRN (20:30)
[2019-11-05] MEDS ORDERED: MAG HYDROX/AL HYDROX/SIMETH 30 ML UNIT-DOSE CUP PO PRN (20:30)
[2019-11-05 21:33] VITALS: BMI 24.4
[2019-11-05] MEDS: THIAMINE HCL 100 MG TABLET (FP) PO SCH (22:30)
[2019-11-05] MEDS: diazePAM 5 MG TABLET PO SCH (22:30)
[2019-11-05] MEDS ORDERED: BACITRACIN 0.9 GM PACKET ONE (23:02)
[2019-11-05] MEDS: IBUPROFEN 400 MG TABLET (FP) PO PRN (23:06)
[2019-11-05] MEDS: BACITRACIN 15 GM TUBE TOPICAL OINTMENT TP SCH (23:25)
[2019-11-06] MEDS: diazePAM 5 MG TABLET PO SCH ×3 (05:34→22:08)
[2019-11-06] MEDS ORDERED: METHADONE HCL 10 MG TABLET PO SCH (07:30)
[2019-11-06] MEDS: diazePAM 5 MG TABLET PO PRN ×2 (07:36→17:28)
[2019-11-06] MEDS ORDERED: METHADONE 120 MG, METHADONE 30 MG PO ONE (08:45)
[2019-11-06] MEDS ORDERED: METHADONE HCL 40 MG DISPERSABLE TABLET ONE (09:05)
[2019-11-06] MEDS ORDERED: METHADONE HCL 10 MG TABLET ONE (09:05)
[2019-11-06] MEDS: PRENATAL VITAMINS W/ FOLIC ACID TABLET (FP) PO SCH (09:22)
--- NOTE | 2019-11-06 10:20 | PN ---
S CIWA - CIWA Score Nausea/Vomitin-No Nausea/No Vomiting Muscle Tremors: 2 Anxiety: 2 Agitation: 2 Paroxysmal Sweats: 2 Orientation: 0-Oriented Tacttile Disturbances: 0-None Auditory Disturbances: 0-None Visual Disturbances: 0-None Headache: 0-None Present CIWA-Ar Total Score: 8 BHS Progress Note (SOAP) Subjective: sweats restless body aches Objective: 11/06/19 10:19 Vital Signs Temperature 97.1 F L 11/06/19 06:37 Pulse Rate 60 11/06/19 06:37 Respiratory Rate 16 11/06/19 06:37 Blood Pressure 98/58 L 11/06/19 06:37 O2 Sat by Pulse Oximetry (%) 98 11/06/19 06:37 labs pending aaox3 ambulating no acute distress Assessment: 11/06/19 10:19 withdrawals Plan: continue detox
[2019-11-06] MEDS ORDERED: TRIMETHOBENZAMIDE HCL 300 MG CAPSULE PO PRN (10:37)
[2019-11-06] MEDS: BACITRACIN 15 GM TUBE TOPICAL OINTMENT TP SCH ×2 (11:27→22:09)
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
[2019-11-06] MEDS: GABAPENTIN 300 MG CAPSULE PO SCH ×2 (13:50→22:08)
[2019-11-06] MEDS: NICOTINE 21 MG/24 HOURS TOPICAL PATCH TD SCH (15:52)
[2019-11-06] MEDS ORDERED: MASKS NR ONE (17:27)
[2019-11-06] MEDS ORDERED: BACITRACIN 0.9 GM PACKET ONE (18:16)
[2019-11-06] MEDS: THIAMINE HCL 100 MG TABLET (FP) PO SCH (22:08)
[2019-11-07] MEDS: diazePAM 5 MG TABLET PO PRN ×3 (02:02→21:42)
[2019-11-07] MEDS ORDERED: METHADONE HCL 40 MG DISPERSABLE TABLET ONE (05:10)
[2019-11-07] MEDS ORDERED: METHADONE HCL 10 MG TABLET ONE (05:10)
[2019-11-07] MEDS: METHADONE 120 MG, METHADONE 30 MG PO SCH (05:51)
[2019-11-07] MEDS: GABAPENTIN 300 MG CAPSULE PO SCH ×3 (05:52→21:42)
[2019-11-07] MEDS: diazePAM 5 MG TABLET PO SCH ×2 (05:54→17:54)
[2019-11-07] MEDS: PRENATAL VITAMINS W/ FOLIC ACID TABLET (FP) PO SCH (10:25)
[2019-11-07] MEDS: NICOTINE 21 MG/24 HOURS TOPICAL PATCH TD SCH (10:25)
[2019-11-07] MEDS: valACYclovir HCL 500 MG TABLET (FP) PO SCH (10:27)
[2019-11-07] MEDS: BACITRACIN 15 GM TUBE TOPICAL OINTMENT TP SCH ×2 (10:27→21:44)
--- NOTE | 2019-11-07 10:29 | PN ---
BHS CIWA - CIWA Score Nausea/Vomitin-No Nausea/No Vomiting Muscle Tremors: 2 Anxiety: 1-Mildly Anxious Agitation: 1-Slight > Activity Paroxysmal Sweats: 1-Minimal Palms Moist Orientation: 0-Oriented Tacttile Disturbances: 0-None Auditory Disturbances: 0-None Visual Disturbances: 0-None Headache: 0-None Present CIWA-Ar Total Score: 5 BHS Progress Note (SOAP) Subjective: i need my valtrex sweats restless agitation Objective: 11/07/19 10:28 Vital Signs Temperature 97.1 F L 11/07/19 05:50 Pulse Rate 63 11/07/19 05:50 Respiratory Rate 18 11/07/19 05:50 Blood Pressure 106/63 11/07/19 05:50 O2 Sat by Pulse Oximetry (%) 96 11/07/19 05:50 Laboratory Tests 11/05/19 21:57 COVID-19 (DAI) Not detected aaox3 ambulating no acute distress labs pending Assessment: 11/07/19 10:28 withdrawals Plan: continue detox valtrex ordered as per pt request; preventative outbreaks for herpes increase fluids
[2019-11-07 12:17] LABS: HEMATOCRIT 33.6 % (32.4-45.2); HEMOGLOBIN 11.1 GM/dL (10.7-15.3); MCH 29.3 pg (25.7-33.7); MCHC 33.1 g/dl (32.0-36.0); MEAN CELL VOLUME 88.5 fl (80-96); MEAN PLT VOLUME 8.5 fl (7.5-11.1); PLATELET COUNT 209 K/MM3 (134-434); RDW 14.1 % (11.6-15.6); WHITE BLOOD COUNT 5.9 K/mm3 (4.0-10.0)
[2019-11-07 12:25] LABS: ALBUMIN 3.6 g/dl (3.4-5.0); BILIRUBIN,TOTAL 0.2 mg/dL (0.2-1); CALCIUM 8.9 mg/dL (8.5-10.1); CREATININE 0.8 mg/dL (0.55-1.3); POTASSIUM 4.6 mmol/L (3.5-5.1); TOT PROT 7.3 g/dl (6.4-8.2)
--- NOTE | 2019-11-07 15:08 | PN ---
S Progress Note Note: pt states she fell getting off her chair when she slipped and fell and landed on her buttock. skin assessed, no s/s of bruising, no c/o pain or discomfort. fall protocol 2 initiated.
[2019-11-07] MEDS: IBUPROFEN 400 MG TABLET (FP) PO PRN (17:54)
[2019-11-07] MEDS: THIAMINE HCL 100 MG TABLET (FP) PO SCH (21:42)
[2019-11-08] MEDS: diazePAM 5 MG TABLET PO PRN (01:43)
[2019-11-08] MEDS ORDERED: METHADONE HCL 40 MG DISPERSABLE TABLET ONE (04:40)
[2019-11-08] MEDS ORDERED: METHADONE HCL 10 MG TABLET ONE (04:40)
[2019-11-08] MEDS: METHADONE 120 MG, METHADONE 30 MG PO SCH (06:02)
[2019-11-08] MEDS: diazePAM 5 MG TABLET PO ONE ×2 (06:03→07:32)
[2019-11-08] MEDS: GABAPENTIN 300 MG CAPSULE PO SCH ×2 (06:03→07:32)
[2019-11-08 06:30] VITALS: TEMP 97.8
[2019-11-08 07:32] VITALS: BP 111/61; PULSE 69
--- NOTE | 2019-11-08 08:53 | DS ---
[facility] Detox Discharge Summary Admission Date: 11/05/19 Discharge Date: 11/08/19 - History Present History: Alcohol Dependence, Cocaine Dependence, Sedative Dependence, MMTP - Physical Exam Results Vital Signs: Vital Signs Temperature 97.8 F 11/08/19 05:48 Pulse Rate 69 11/08/19 06:50 Respiratory Rate 18 11/08/19 06:50 Blood Pressure 111/61 11/08/19 06:50 O2 Sat by Pulse Oximetry (%) 98 11/08/19 05:48 Pertinent Admission Physical Exam Findings: Vital Signs Temperature 97.8 F 11/08/19 05:48 Pulse Rate 69 11/08/19 06:50 Respiratory Rate 18 11/08/19 06:50 Blood Pressure 111/61 11/08/19 06:50 O2 Sat by Pulse Oximetry (%) 98 11/08/19 05:48 Laboratory Tests 11/05/19 11/07/19 11/07/19 21:57 08:30 08:30 WBC 5.9 RBC 3.80 Hgb 11.1 Hct 33.6 MCV 88.5 MCH 29.3 MCHC 33.1 RDW 14.1 Plt Count 209 MPV 8.5 Sodium Potassium Chloride Carbon Dioxide Anion Gap BUN Creatinine Est GFR (CKD-EPI)AfAm Est GFR (CKD-EPI)NonAf Random Glucose Calcium Total Bilirubin AST ALT Alkaline Phosphatase Total Protein Albumin Syphilis Serology Reactive A* RPR Titer COVID-19 (DAI) Not detected 11/07/19 11/07/19 08:30 08:30 WBC RBC Hgb Hct MCV MCH MCHC RDW Plt Count MPV Sodium 139 Potassium 4.6 Chloride 104 Carbon Dioxide 31 Anion Gap 5 L BUN 18.0 Creatinine 0.8 Est GFR (CKD-EPI)AfAm 96.19 Est GFR (CKD-EPI)NonAf 83.00 Random Glucose 77 Calcium 8.9 Total Bilirubin 0.2 AST 20 ALT 20 Alkaline Phosphatase 83 Total Protein 7.3 Albumin 3.6 Syphilis Serology RPR Titer Reactive 1:1 H COVID-19 (DAI) aaox3 ambulating no acute distress lungs CTA - Treatment Hospital Course: Detox Protocol Followed, Detoxed Safely, Responded well, Discharged Condition Good, Rehab Referral Accepted - Medication Discharge Medications: Ambulatory Orders Methadone [Dolophine -] 150 mg PO DAILY 04/25/18 Valacyclovir HCl [Valtrex -] 500 mg PO DAILY 04/25/18 Bupropion HCl [Wellbutrin Xl -] 300 mg PO DAILY #30 tab 04/26/18 Gabapentin [Neurontin -] 300 mg PO TID #90 cap MDD 900 04/26/18 - Diagnosis (1) Alcohol dependence with uncomplicated withdrawal Current Visit: Yes Status: Chronic (2) Cocaine dependence, uncomplicated Current Visit: Yes Status: Chronic (3) Substance induced mood disorder Current Visit: Yes Status: Acute (4) Substance-induced sleep disorder Current Visit: Yes Status: Acute (5) Nicotine dependence Current Visit: Yes Status: Chronic Qualifiers: Nicotine product type: cigarettes Substance use status: uncomplicated Qualified Code(s): F17.210 - Nicotine dependence, cigarettes, uncomplicated (6) Opioid dependence on agonist therapy Current Visit: Yes Status: Chronic (7) Opioid dependence on agonist therapy Current Visit: Yes Status: Chronic (8) PTSD (post-traumatic stress disorder) Current Visit: Yes Status: Chronic (9) Genital herpes Current Visit: Yes Status: Chronic Qualifiers: Herpes simplex infection site: vulvovaginitis Qualified Code(s): A60.04 - Herpesviral vulvovaginitis (10) Pulmonary TB Current Visit: Yes Status: Resolved (11) Chronic back pain greater than 3 months duration Current Visit: No Status: Chronic (12) Drug-induced mood disorder Current Visit: No Status: Chronic (13) Insomnia Current Visit: No Status: Chronic (14) MDD (major depressive disorder) Current Visit: No Status: Chronic (15) Methadone maintenance therapy patient Current Visit: Yes Status: Chronic (16) Neuropathy Current Visit: No Status: Chronic (17) Sedative, hypnotic or anxiolytic dependence with withdrawal, uncomplicated Current Visit: Yes Status: Chronic (18) Use of cane as ambulatory aid Current Visit: Yes Status: Chronic (19) Depression (emotion) Current Visit: No Status: Suspected Qualifiers: Depression Type: dysthymia Qualified Code(s): F34.1 - Dysthymic disorder (20) Depressive disorder Current Visit: No Status: Suspected (21) Hepatitis C Current Visit: No Status: Resolved Qualifiers: Viral hepatitis chronicity: unspecified Hepatic coma status: without hepatic coma Qualified Code(s): B19.20 - Unspecified viral hepatitis C without hepatic coma - AMA Did Patient Leave Against Medical Advice: No
[2019-11-08] MEDS: valACYclovir HCL 500 MG TABLET (FP) PO SCH (09:11)
[2019-11-08] MEDS: PRENATAL VITAMINS W/ FOLIC ACID TABLET (FP) PO SCH (09:11)
[2019-11-08] MEDS: NICOTINE 21 MG/24 HOURS TOPICAL PATCH TD SCH (09:12)
[2019-11-08] MEDS: BACITRACIN 15 GM TUBE TOPICAL OINTMENT TP SCH (09:12)
[2019-11-08] MEDS ORDERED: BUPRENORPHINE/NALOXONE 8 MG/2 MG FILM PACKET SL SCH (10:00)
== END 2019-11-08 09:22 | disposition home or self-care (01) | DRG 897 ==
LOC: YASAS 16:50 → Y6N 21:50
PROVIDERS: ADMIT Allergy & Immunology; ATTEND Allergy & Immunology
PROC: HZ2ZZZZ Detoxification Services for Substance Abuse Treatment (ICD-10-PCS; principal; 2019-11-05)
DX: F10.230 Alcohol dependence with withdrawal, uncomplicated (principal); F11.20 Opioid dependence, uncomplicated; F14.20 Cocaine dependence, uncomplicated; F19.282 Other psychoactive substance dependence with psychoactive substance-induced sleep disorder; F13.230 Sedative, hypnotic or anxiolytic dependence with withdrawal, uncomplicated; F17.210 Nicotine dependence, cigarettes, uncomplicated; F19.24 Other psychoactive substance dependence with psychoactive substance-induced mood disorder; F34.1 Dysthymic disorder; A60.04 Herpesviral vulvovaginitis; M54.5 Low back pain; G89.29 Other chronic pain; G62.9 Polyneuropathy, unspecified; Z86.19 Personal history of other infectious and parasitic diseases; Z86.11 Personal history of tuberculosis; Z99.89 Dependence on other enabling machines and devices
CPT/HCPCS: 36415; 80053; 85027; 86593; 86780; U0003